=== PATIENT | female | born 1985 | race Caucasian/White ===

== ENCOUNTER → 2018-07-31 | Outpatient (CLI) | payer BC, SELFPAY ==
[2018-07-18 13:37] VITALS: BMI 23.3
[2018-07-31 12:56] LABS: Follicle Stimulating Hormone 5.6 mIU/mL; Thyroid Stim Hormone (TSH) 0.93 uIU/mL (0.358-3.74)
== END | disposition home or self-care (01) ==
PROVIDERS: Family Provider Family Medicine; PCP Family Medicine; Referring Provider Obstetrics & Gynecology; Visit Provider Obstetrics & Gynecology
DX: N97.9 Female infertility, unspecified (principal); N93.9 Abnormal uterine and vaginal bleeding, unspecified; N96 Recurrent pregnancy loss
CPT/HCPCS: 36415; 83001; 84443

== ENCOUNTER → 2024-08-09 | Outpatient (CLI) | payer BC, SELFPAY ==
--- NOTE | 2024-08-09 07:49 | MRI_ITS ---
PROCEDURE: SPINE LUMBAR (ROUTINE) 08/09/2024 REASON FOR EXAM: PAIN, PARS DEFECT WITH SPONDYLOLISTHESIS TECHNIQUE: Multiplanar and multisequence images were obtained without IV contrast administration. COMPARISON: None FINDINGS: Vertebral body heights are within normal limits. Negative for acute fracture, contusion or marrow replacement. Bilateral pars defects at L5 width grade 2 anterolisthesis. Conus medullaris is within normal limits and terminates at T12. No paraspinal mass. L1-2: No focal disc abnormality, spinal stenosis or foraminal narrowing. L2-3: No focal disc abnormality, spinal stenosis or foraminal narrowing. L3-4: No focal disc abnormality, spinal stenosis or foraminal narrowing. L4-5: No focal disc abnormality, spinal stenosis or foraminal narrowing. Mild bilateral facet arthrosis. L5-S1: Grade 2 anterolisthesis with uncovering of the posterior disc. Mild bilateral facet arthrosis. No significant spinal stenosis. Mild left and moderate/severe right foraminal narrowing. MRI/Spine Lumbar (Routine) IMPRESSION: 1. No significant spinal stenosis. 2. Acquired moderate/severe right foraminal narrowing at L5-S1. 3. Bilateral pars defects at L5 with grade 2 anterolisthesis. Reading Location: [facility]
--- OUTSIDE RECORDS SUMMARY | 2024-08-09 07:50 | XMS RPT_ITS | CCD ---
Author Organization [facility] Care Team Providers Care Electrical Manager Name Role Phone July Nix Unavailable Unavailable Tera Lira Unavailable Unavailable Tourlas, Moy Unavailable Unavailabl e Ralph Quirozah Donald Unavailable Unavailable Emily Marcum Unavailable Unavailable Unavailable Linda, Franny L Unavailable Emily Marcum Unavailable Tourlas, Moy Unavailable [place], Franny L Unavailable Unavailable Ezio Macdonald Unavailable Unavailable July Nix Unavailable Jacob Titus Unavailable Unavailable Jacy Boone Unavailable Unavailable [place], Mrs. Franny Centeno Attending Unavailabl e Trixie, Ms. Emily Mullins Primary Care Unavailabl e [place], Mrs. Franny Mendezn Referring Unavailabl e [place], Mrs. Franny Mendezn Referring Unavailabl e Linda, Mrs. Franny Mendezn Primary Care Unavailabl e Linda, Mrs. Franny Centeno Attending Unavailabl e BOONE, MD JACY HERBERT Referring Unava ilable BOONEMD JACY Beth Attending Unava ilable [place], Mrs. Franny Mendezn Primary Care Unavailabl e Linda, Mrs. Franny Mendezn Primary Care Unavailabl e Ray, Dr. July Gresham Attending Unavailabl e Ray, Dr. July Gresham Referring Unavailabl e Linda, Mia Franny Taryn Primary Care Unavailabl e [place], Dr. July Gresham Attending Unavailabl e [place], Dr. July Gresham Referring Unavailabl e Linda, Mia Frannychelsea Centeno Primary Care Unavailabl e [place], Dr. July Gresham Referring Unavailabl e [place], Dr. July Gresham Attending Unavailabl e Linda, Mrs. Frank Taryn Primary Care Unavailabl e Ray, Dr. July Gresham Referring Unavailabl e Ray, Dr. July Gresham Attending Unavailabl e Linda, Mrs. Frank Taryn Primary Care Unavailabl e Ray, Dr. July Gresham Referring Unavailabl e [place], Dr. July Gresham Attending Unavailabl e Linda, Mrs. Frank Taryn Primary Care Unavailabl e [place], Dr. July Gresham Attending Unavailabl e Linda, Mrs. Frank Taryn Attending Unavailabl e Linda, Mrs. Franny Mendezn Referring Unavailabl e Linda, Mrs. Frank Taryn Primary Care Unavailabl e Linda, Mrs. Franny Mendezn Referring Unavailabl e Linda, Mrs. Franny Mendezn Attending Unavailabl e Linda, Mrs. Frank Taryn Primary Care Unavailabl e [place], Dr. July Gresham Attending Unavailabl e [place], Dr. July Gresham Referring Unavailabl e [place], Mrs. Frank Taryn Primary Care Unavailabl e [place], Dr. July Gresham Admitting Unavailabl e [place], Dr. July Gresham Attending Unavailabl e [place], Dr. July Gresham Referring Unavailabl e [place], Mrs. Franny Mendezn Primary Care Unavailabl e [place], Mrs. Franny Centeno Primary Care Unavailabl e Macdonald, Dr. Ezio Kraus Attending Unavaila ble Kamenik, Ms. Jacob Gomez Attending Unavai lable Linda, Mrs. Franny Mendezn Primary Care Unavailabl e Kamenik, Ms. Jacob Gomez Attending Unavai lable [place], Mrs. Franny Centeno Primary Care Unavailabl e [place], Mrs. Franny Centeno Primary Care Unavailabl e Boone, Dr. Jacy Herbert Attending Unav ailable Boone, Dr. Jacy Herbert Referring Unav ailable Carbon, Dr. July Gresham Attending Unavailabl e [place], Mrs. Franny Mendezn Primary Care Unavailabl e [place] PREPAROLE COUNSELING AIDERayna BROWN Unavailable Unav ailable Linda Franny JAIN Primary Care Provider [phone] STENTDavina, ROBI Primary Care Unavailable STENTZ, ROBI Primary Care Unavailable [place] PREPAROLE COUNSELING AIDE-HOME CARE LIAISON, Franny L Primary Care Provider [place] PREPAROLE COUNSELING AIDE-HOME CARE LIAISON, Franny L Unavailable Stentz Robi BELCHER Primary Care Provider Juan Wynn MD Primary Care Provider [phone] Linda PREPAROLE COUNSELING AIDE-SKINNY, Franny Duran Unavailable [phone] Juan Wynn MD Primary Care Provider SARAH, JUAN Ramirez Attending Unavailable LINDA, FRANNY L Primary Care Unavailable STENTZ, ROBI Attending Unavailable STENTZ, ROBI Primary Care Unavailable STENTZ, ROBI Primary Care Unavailable NAHOMY HERNANDEZ S Attending Unavailable YEATER, JUAN M Attending Unavailable STENTZ, ROBI Primary Care Unavailable STENCELBOBBY Attending Unavailable YEATER, JUAN M Primary Care Unavailable YEATER, JUAN M Attending Unavailable STENCEL, BOBBY Bennett Referring Unavailable YEATER, JUAN M Primary Care Unavailable YEATER, JUAN M Primary Care Unavailable DAMASOVIRIDIANA Ghosh Attending Unavailable YeJuan kirk MD Unavailable YEATER, JUAN M Primary Care Unavailable LEMSIMONE TODD Attending Unavailable YEATER, JUAN M Primary Care Unavailable BRAXTONSHAHNAZ E Attending Unavailable YEATER, JUAN M Primary Care Unavailable YEATER, JUAN M Primary Care Unavailable BRAXTONSHAHNAZ E Attending Unavailable YEATER, JUAN M Primary Care Unavailable YEATER, JUAN M Primary Care Unavailable STENCEL, BOBBY Bennett Referring Unavailable YEATER, JUAN M Primary Care Unavailable STENCEL, BOBBY Bennett Referring Unavailable YEATER, JUAN M Primary Care Unavailable STENCEL, BOBBY Bennett Referring Unavailable YEATER, JUAN M Primary Care Unavailable Celine Rao Attending Unavailable Tourlas, Carl Primary Care Unavailable Tourlas, Carl Referring Unavailable Tourlas, Carl Primary Care Unavailable Aidee, Saluda Attending Unavailable Maira, Celine Attending Unavailable Maira, Celine Referring Unavailable Tourlas, Carl Primary Care Unavailable Allergies Allergy Classification Reported Allergen(s) Allergy Type Date of Onset Reaction(s) Facility (1 source) Wheat preparation Drug Allergy 5 [facility] (1 source) Environmental Allergies: Uncoded; Translations: [Environmental Allergies: Uncoded] Propensity to adverse reactions (disorder) [facility] Rep[facility] Medications Current Medications Medication Drug Class(es) Dates Sig (Normalized) Sig (Original) ashjodidha (1 source) take 1 tablet by mouth once daily ashwagandha ; 1 tab(s) orally once a day Quantity: 0 Refills: 0 Ordered: 02-Sep-2021 [place], [place] Generic Substitution Allowed aspirin 81 mg delayed release oral tablet (2 sources) Platelet Aggregation Inhibitor, Nonsteroidal Anti-inflammatory Drug take 1 tablet by mouth once daily at bedtime Aspirin Enteric Coated 81 mg oral delayed release tablet ; 1 tab(s) orally once a day (at bedtime) Quantity: 0 Refills: 0 Ordered: 10-Dec-2019 Maya Rowell Status: Discontinued Generic Substitution Allowed cetirizine hydrochloride 10 mg oral tablet (2 sources) Histamine-1 Receptor Antagonist take 1 tablet by mouth once daily at bedtime cetirizine 10 mg oral tablet ; 1 tab(s) orally once a day (at bedtime) Quantity: 0 Refills: 0 Ordered: 10-Dec-2019 Maya Rowell Status: Discontinued Generic Substitution Allowed citalopram 20 mg oral tablet (20 sources) Serotonin Reuptake Inhibitor Start: 11-29-2023 End: 11-23-2024 take 1 tablet by mouth once daily citalopram (CeleXA) 20 mg tablet Indications: PMDD (premenstrual dysphoric disorder) Take 1 tablet (20 mg) by mouth once daily. Take in conjunction with 10mg tablet for a total of 30mg daily. 90 tablet 3 11/29/2023 11/23/2024 Active Start: 11-29-2023 End: 11-28-2024 take 1 tablet by mouth once daily citalopram (CeleXA) 10 mg tablet Indications: PMDD (premenstrual dysphoric disorder) Take 1 tablet (10 mg) by mouth once daily. Take in conjunction with 20mg tablet for a total of 30mg daily. 90 tablet 3 11/29/2023 11/28/2024 Active Start: 10-18-2023 End: 12-31-2023 take 0.5 tablet by mouth once daily, then take 1 tablet by mouth once daily citalopram (CeleXA) 20 mg tablet Indications: PMDD (premenstrual dysphoric disorder) Take 0.5 tablets (10 mg) by mouth once daily for 14 days, THEN 1 tablet (20 mg) once daily. 67 tablet 10/18/2023 11/29/2023 Discontinued cyclobenzaprine hydrochloride 10 mg oral tablet (4 sources) Muscle Relaxant Start: 06-14-2024 End: 06-21-2024 take 1 tablet by mouth every eight hours for pain cyclobenzaprine (Flexeril) 10 mg tablet Indications: Muscle strain of gluteal region, right, initial encounter Take 1 tablet (10 mg) by mouth every 8 hours if needed (for muscle spasms/pain). *caution - can cause drowsiness* 12 tablet 06/21/2024 Active hydrocortisone 10 mg/ml / neomycin 3.5 mg/ml / polymyxin b 17974 unt/ml otic suspension (1 source) Aminoglycoside Antibacterial, Polymyxin-class Antibacterial, Corticosteroid Start: 11-22-2021 End: 12-01-2021 neomycin/polymyxin B/hydrocortisone 0.35%-10,000 units/mL-1% otic suspension ; 4 drop(s) in right ear 2 times a day x 7 days Quantity: 5 Refills: 0 Ordered: 22-Nov-2021 Jacob Titus Start: 22-Nov-2021 End: 01-Dec-2021 Generic Substitution Allowed Comments: For the ear.Shake well before use. Comment on above: For the ear.Shake we ll before use. multivitamin tablet (14 sources) multivitamin tab let Take by mouth. Active multivitamin tab let Take by mouth. 0 Active naproxen 500 mg oral tablet (4 sources) Nonsteroidal Anti-inflammatory Drug Start: 06-14-2024 End: 06-21-2024 take 1 tablet by mouth every twelve hours naproxen (Naprosyn) 500 mg tablet Indications: Muscle strain of gluteal region, right, initial encounter Take 1 tablet (500 mg) by mouth every 12 hours if needed (pain/inflammation). Take with a meal. 28 tablet 06/21/2024 Active Multivitamins oral tablet (obsolete) (2 sources) take 1 tablet by mouth once daily Multivitamins oral tablet (obsolete) ; 1 tab(s) orally once a day Quantity: 0 Refills: 0 Ordered: 09-Sep-2021 Viridiana Pitt Status: Other Generic Substitution Allowed take 1 tablet by melody th once daily at bedtime Multivitamins oral tablet (obsolete) ; 1 tab(s) orally once a day (at bedtime) Quantity: 0 Refills: 0 Ordered: 10-Dec-2019 Sorin Maya Generic Substitution Allowed valACYclovir 500 mg oral tablet (3 sources) Herpesvirus Nucleoside Analog DNA Polymerase Inhibitor, Herpes Simplex Virus Nucleoside Analog DNA Polymerase Inhibitor, Herpes Zoster Virus Nucleoside Analog DNA Polymerase Inhibitor Start: 01-31-2020 take 1 tablet by mouth twice daily valACYclovir 500 mg oral tablet ; 1 tab(s) orally 2 times a day Quantity: 0 Refills: 0 Ordered: 06-Feb-2020 Maya Swift Start: 31-Jan-2020 Status: Discontinued Generic Substitution Allowed Start: 10-10-2019 take 1 tablet by melody th once daily valACYclovir HCl - 1 GM Oral Tablet TAKE 1 TABLET DAILY. Quantity: 10 Refills: 2 Tera Lira MD Start : 10-Oct-2019 Active Zinc Sulfate (1 source) take 1 tablet by melody th once daily Zinc ; 1 tab(s) orally once a day Quantity: 0 Refills: 0 Ordered: 02-Sep-2021 [place] Generic Substitution Allowed Completed/Discontinued Medications Medication Drug Class(es) Dates Sig (Normalized) Sig (Original) amoxicillin 875 mg oral tablet (1 source) Penicillin-class Antibacterial Start: 02-22-2021 take 1 tablet by mouth once daily Amoxicillin 875 MG Oral Tablet TAKE 1 TABLET EVERY 12 HOURS DAILY. Quantity: 20 Refills: 0 Ordered: 22-Feb-2021 Stacy Rose PA-C Start : 22-Feb-2021 Active Apple Cider Vinegar (17 sources) take 1 tablet by mouth once daily apple cider vinegar ; 1 tab(s) orally once a day Quantity: 0 Refills: 0 Ordered: 02-Sep-2021 [place] Generic Substitution Allowed Apple Cider Vine gar CAPS Quantity: 0 Refills: 0 Ordered: 13-Jul-2021 DO Active Ashwagandha 500 MG Oral Caps ule (16 sources) Ashwagandha 500 MG Oral Capsule Quantity: 0 Refills: 0 Ordered: 13-Jul-2021 DO Active Bacillus coagulans / Inulin (6 sources) End: 03-19-2024 BACILLUS COAGULANS-INULIN OR AL Take by mouth. 03/19/2024 Discontinued (Med List Cleanup) BACILLUS COAGULA NS-INULIN ORAL Take by mouth. Active BACILLUS COAGULA NS-INULIN ORAL Take by mouth. 0 Active cephalexin 500 mg oral capsule (2 sources) Cephalosporin Antibacterial Start: 08-27-2021 End: 09-05-2021 take 1 capsule by mouth three times daily cephalexin 500 mg oral capsule ; 1 cap(s) orally 3 times a day Quantity: 30 Refills: 0 Ordered: 27-Aug-2021 Ezio Macdonald Start: 27-Aug-2021 End: 05-Sep-2021 Status: Other Generic Substitution Allowed Comments: Finish all this medication unless otherwise directed by prescriber. Comment on above: Finish all this medi cation unless otherwise directed by prescriber. Collagen Ultra Oral Capsule (9 sources) Start: 01-15-2021 End: 06-28-2021 Collagen Ultra Oral Capsule Quantity: 0 Refills: 0 Ordered: 15-Jan-2021 Rayna Siddiqi Start : 15-Jan-2021 End : 28-Jun-2021 Complete Start: 01-15-2021 Collagen Ultra Oral Capsule Quantity: 0 Refills: 0 Ordered: 15-Jan-2021 Rayna Siddiqi Start : 15-Jan-2021 Active famotidine 20 mg oral tablet (13 sources) Histamine-2 Receptor Antagonist Start: 10-15-2019 take 1 tablet by mouth at bedtime Famotidine 20 MG Oral Tablet TAKE 1 TABLET AT BEDTIME. Quantity: 30 Refills: 6 July Nix DO Start : 15-Oct-2019 Active End: 06-28-2021 Pepcid TABS Quantity: 0 Refi lls: 0 Ordered: 28-Jun-2021 DO End : 28-Jun-2021 Complete Pepcid TABS César tity: 0 Refills: 0 Ordered: 19-Nov-2020 DO Active fluticasone propionate 0.05 mg/actuat metered dose nasal spray (10 sources) Corticosteroid Start: 12-20-2021 Fluticasone Pr opionate 50 MCG/ACT Nasal Suspension INSTILL 1 SQUIRT Twice daily Quantity: 1 Refills: 5 Ordered: 20-Dec-2021 Franny Escamilla Start : 20-Dec-2021 Active Start: 02-22-2021 take 1 spray(s) nasa l route once daily Fluticasone Propionate 50 MCG/ACT Nasal Suspension USE 1 SPRAY IN EACH NOSTRIL ONCE DAILY. Quantity: 1 Refills: 0 Ordered: 22-Feb-2021 Stacy Rose PA-C Start : 22-Feb-2021 Active ibuprofen 800 mg oral tablet (4 sources) Nonsteroidal Anti-inflammatory Drug Start: 08-27-2021 End: 09-05-2021 take 1 tablet by mouth twice daily at mealtime IBU 800 mg oral tablet ; 1 tab(s) orally 2 times a day Quantity: 20 Refills: 0 Ordered: 27-Aug-2021 Ezio Macdonald Start: 27-Aug-2021 End: 05-Sep-2021 Status: Other Generic Substitution Allowed Comments: Do not take this drug if you are .It is very important that you take or use this exactly as directed. Do not skip doses or discontinue unless directed by your doctor.May cause drowsiness or dizziness.Obtain medical advice before taking any non-prescription drugs as some may affect the action of this medication.Take with food or milk. Start: 02-07-2020 take 1 tablet by melody th every six hours ibuprofen 600 mg oral tablet ; 1 tab(s) orally every 6 hours Quantity: 40 Refills: 0 Ordered: 07-Feb-2020 RayJuly avery Start: 07-Feb-2020 Status: Other Generic Substitution Allowed Comment on above: Do not take this david g if you are .It is very important that you take or use this exactly as directed. Do not skip doses or discontinue unless directed by your doctor.May cause drowsiness or dizziness.Obtain medical advice before taking any non-prescription drugs as some may affect the action of this medication.Take with food or milk. Iron 18 MG TBCR (9 sources) End: 06-28-2021 Iron 18 MG TBCR Quantity: 0 Refills: 0 Ordered: 28-Jun-2021 DO End : 28-Jun-2021 Complete Iron 18 MG TBCR Quantity: 0 Refills: 0 Ordered: 15-Jan-2021 DO Active 1.5/30 1.5-30 MG-MCG Oral Tablet (5 sources) Start: 04-14-2021 End: 06-28-2021 take 1 tablet by mouth once daily, then take 2 tablets by mouth every week 1.5-30 MG-MCG Oral Tablet TAKE 1 TABLET Daily Skip every other placebo week. Quantity: 3 Refills: 3 Ordered: 07-May-2021 July Nix DO Start : 14-Apr-2021 End : 28-Jun-2021 Complete Start: 04-14-2021 take 1 tablet by melody th once daily, then take 2 tablets by mouth every week 1.5-30 MG-MCG Oral Tablet TAKE 1 TABLET Daily Skip every other placebo week. Quantity: 3 Refills: 3 Ordered: 07-May-2021 July Nix DO Start : 14-Apr-2021 Active Start: 04-14-2021 take 1 tablet by melody th once daily, then take 2 tablets by mouth every week 1.5-30 MG-MCG Oral Tablet TAKE 1 TABLET Daily Skip every other placebo week. Quantity: 2 Refills: 6 Ordered: 14-Apr-2021 July Nix DO Start : 14-Apr-2021 Active Loratadine (4 sources) Claritin TABS Qu antity: 0 Refills: 0 Ordered: 19-Nov-2020 DO Active medroxyPROGESTERone acetate 5 mg oral tablet (2 sources) Progestin Star t: 08-04 take 1 tablet by mouth once daily medroxyPROGESTERone Acetate 5 MG Oral Tablet Take 1 tablet daily Quantity: 14 Refills: 0 Ordered: 17-Aug-2021 July Nix DO Start : 17-Aug-2021 Active methylPREDNISolone 125 mg injection (1 source) Corticosteroid Star t: 06-04 25 End: 06-04 inject 125 mg by intramuscular injection once 125 mg, intramuscular, Once, On Mon06/14/24 at 1620, For 1 dose Multi-Vitamins TABS (17 sources) Multi-Vitamins T ABS Quantity: 0 Refills: 0 Ordered: 28-Jun-2021 DO Active nitrofurantoin, macrocrystals 100 mg oral capsule (2 sources) Nitrofuran Antibacterial Star t: 11-04 End: 01-04 21 take 1 capsule by mouth once Nitrofurantoin Macrocrystal 100 MG Oral Capsule TAKE 1 CAPSULE Every twelve hours Quantity: 10 Refills: 0 Ordered: 20-Nov-2020 Rayna Siddiqi Start : 20-Nov-2020 End : 15-Jan-2021 Complete ondansetron 4 mg disintegrating oral tablet (5 sources) Serotonin-3 Receptor Antagonist Star t: 01-1 0-20 23 take 1 tablet by mouth twice daily Ondansetron 4 MG Oral Tablet Disintegrating Take 1 tablet twice daily Quantity: 6 Refills: 0 Ordered: 15-Mar-2022 Linda RODRIGUEZNFranny CORTES Start : 15-Mar-2022 Active Start: 08-21-2019 take 1 tablet by melody th every six hours Ondansetron HCl - 4 MG Oral Tablet TAKE 1 TABLET Every 6 hours PRN nausea Quantity: 20 Refills: 3 July Nix DO Start : 21-Aug-2019 Active 2 ml orphenadrine citrate 30 mg/ml injection (1 source) Muscle Relaxant Start: 06-14-2024 End: 06-14-2024 inject 60 mg by intramuscular injection once 60 mg, intramuscular, Once, On Mon06/14/24 at 1605, For 1 dose oxyCODONE hydrochloride 5 mg oral tablet (2 sources) Opioid Agonist Start: 02-07-2020 End: 02-08-2020 take 1 tablet by mouth every six hours as needed oxyCODONE 5 mg oral tablet ; 1 tab(s) orally every 6 hours, As Needed -Pain - Mod (4-6) cramping or back pain Quantity: 5 Refills: 0 Ordered: 07-Feb-2020 July Nix Start: 07-Feb-2020 End: 08-Feb-2020 Status: Other Generic Substitution Allowed 27-1 MG Oral Tablet (10 sources) Start: 01-01-2020 End: 06-28-2021 27-1 MG Oral Tablet Quantity: 0 Refills: 0 Ordered: 01-Jan-2020 DO Start : 01-Jan-2020 End : 28-Jun-2021 Complete Start: 01-01-2020 27-1 MG Oral Tablet Quantity: 0 Refills: 0 Ordered: 01-Jan-2020 DO Start : 01-Jan-2020 Active Probiotic CAPS (20 sources) Probiotic CAPS Q uantity: 0 Refills: 0 Ordered: 13-Jul-2021 DO Active Probiotic CAPS Q uantity: 0 Refills: 0 Ordered: 19-Nov-2020 DO Active promethazine hydrochloride 25 mg oral tablet (1 source) Phenothiazine Start: 06-28-2019 take 1 tablet by mouth every six hours Promethazine HCl - 25 MG Oral Tablet TAKE 1 TABLET EVERY 6 HOURS NEEDED FOR NAUSEA. Quantity: 20 Refills: 3 CarbonJuly avery DO Start : 28-Jun-2019 Active sertraline 25 mg oral tablet (20 sources) Serotonin Reuptake Inhibitor Start: 12-20-2021 End: 03-15-2022 take 1 tablet by mouth once daily Sertraline HCl - 25 MG Oral Tablet Take 1 tablet daily Quantity: 30 Refills: 2 Ordered: 20-Dec-2021 Franny Escamilla Start : 20-Dec-2021 End : 15-Mar-2022 Complete Start: 11-19-2020 End: 11-02-2023 take 1 tablet by mouth once daily sertraline (Zoloft) 50 mg tablet Take 1 tablet (50 mg) by mouth once daily. 11/19/2020 11/02/2023 Discontinued (Med List Cleanup) Start: 03-24-2020 End: 01-15-2021 take 1 tablet by mouth once daily Sertraline HCl - 25 MG Oral Tablet Take 1 tablet daily Quantity: 90 Refills: 3 Ordered: 19-Nov-2020 Emily Wagoner Start : 19-Nov-2020 Active Stress ReLeaf CAPS (17 sources) Stress ReLeaf CA PS Quantity: 0 Refills: 0 Ordered: 28-Jun-2021 DO Active sulfamethoxazole 800 mg / trimethoprim 160 mg oral tablet (2 sources) Dihydrofolate Reductase Inhibitor Antibacterial, Sulfonamide Antimicrobial Start: 08-28-19 End: 09-06-19 take 1 tablet by mouth twice daily Bactrim DS 800 mg-160 mg oral tablet ; 1 tab(s) orally 2 times a day Quantity: 20 Refills: 0 Ordered: 27-Aug-2021 Jacob Titus Start: 27-Aug-2021 End: 05-Sep-2021 Status: Other Generic Substitution Allowed Comments: Avoid prolonged or excessive exposure to direct and/or artificial sunlight while taking this medication.Finish all this medication unless otherwise directed by prescriber.Medicati on should be taken with plenty of water. Comment on above: Avoid prolonged or e xcessive exposure to direct and/or artificial sunlight while taking this medication.Finish all this medication unless otherwise directed by prescriber.Medication should be taken with plenty of water. vitamin b12 2.5 mg oral tablet (16 sources) Vitamin B12 B-12 2500 MCG Or al Tablet Quantity: 0 Refills: 0 Ordered: 13-Jul-2021 DO Active vitamin b6 100 mg oral tablet (16 sources) B-6 100 MG Oral Tablet Quantity: 0 Refills: 0 Ordered: 13-Jul-2021 DO Active Vitamin D TABS (9 sources) End: 06-29-19 22 Vitamin D TABS Quantity: 0 Refills: 0 Ordered: 28-Jun-2021 DO End : 28-Jun-2021 Complete Vitamin D TABS Q uantity: 0 Refills: 0 Ordered: 15-Jan-2021 DO Active Zinc (16 sources) Zinc 50 MG CAPS Quantity: 0 Refills: 0 Ordered: 13-Jul-2021 DO Active Zinc Acetate (6 sources) End: 03-19-2024 take 1 tablet by mouth once daily ZINC ACETATE ORAL Take 1 tablet by mouth once daily. 03/19/2024 Discontinued (Med List Cleanup) take 1 tablet by mouth once tutu y ZINC ACETATE ORAL Take 1 tablet by mouth once daily. Active take 1 tablet by mouth once tutu y ZINC ACETATE ORAL Take 1 tablet by mouth once daily. 0 Active Problems Active Problems Problem Classification Problem Date Documented Da te Episodic/Chronic Administrative/social admission (1 source) Multigravida; Translations: [Multigravida in second trimester] Episodic Anxiety disorders (1 source) Anxiety disorder, unspecified; Translations: [Anxiety disorder, unspecified] Onset: 2 Chronic Esophageal disorders (20 sources) Gastroesophageal reflux disease; Translations: [Esophageal reflux] Onset: 3 09-12-2022 Chronic Menstrual disorders (3 sources) Irregular periods; Translations: [Irregular menstruation, unspecified] Onset: 5 04-02-2024 Chronic Mood disorders (20 sources) Moderate major depression, single episode; Translations: [Major depressive affective disorder, single episode, moderate] Onset: 3 09-13-2022 Chronic Nausea and vomiting (5 sources) Nausea and vomiting; Translations: [Nausea] Episodic Nutritional deficiencies (10 sources) Vitamin D deficiency; Translations: [Unspecified vitamin D deficiency] Onset: 4 09-12-2022 Chronic Other acquired deformities (3 sources) Spondylolysis; Translations: [Spondylolisthesis, site unspecified] 06-14-2024 Episodic Other acquired deformities (1 source) Spondylolisthesis; Translations: [Spondylolisthesis, lumbosacral region] 06-21-2024 Episodic Other acquired deformities (3 sources) Spondylolisthesis, site unspecified; Translations: [Spondylolisthesis, site unspecified] Onset: 5 Episodic Other acquired deformities (2 sources) Spondylolisthesis, lumbosacral region; Translations: [Spondylolisthesis, lumbosacral region] Onset: 5 Episodic Other complications of (1 source) Uterine scar from previous surgery in , childbirth and the puerperium; Translations: [Encounter for maternal care for low transverse scar from previous delivery] Episodic Other connective tissue disease (2 sources) Myalgia, other site; Translations: [Myalgia, other site] Onset: 5 Episodic Other diseases of bladder and urethra (20 sources) Overactive bladder; Translations: [Hypertonicity of bladder] Onset: 3 09-12-2022 Chronic Other ear and sense organ disorders (1 source) Acute infective otitis externa; Translations: [Infective otitis externa, unspecified] 11-22-2021 Chronic Other endocrine disorders (1 source) Menarche; Translations: [History of Menarche] Chronic Other female genital disorders (12 sources) Abnormal uterine bleeding; Translations: [Unspecified disorders of menstruation and other abnormal bleeding from female genital tract] Chronic Other female genital disorders (6 sources) Abnormal uterine and vaginal bleeding, unspecified; Translations: [Abnormal uterine and vaginal bleeding, unspecified] Onset: 2 Chronic Other gastrointestinal disorders (4 sources) Diarrhea; Translations: [Diarrhea] Episodic Other inflammatory condition of skin (1 source) Pityriasis rosea; Translations: [Pityriasis rosea] 05-04-2024 Chronic Other nervous system disorders (1 source) Entrapment of left ulnar nerve; Translations: [Lesion of ulnar nerve, left upper limb] 03-19-2024 Chronic Other nutritional; endocrine; and metabolic disorders (12 sources) Overweight in adulthood with body mass index of 25 or more but less than 30; Translations: [Body Mass Index 27.0-27.9, adult] Episodic Other nutritional; endocrine; and metabolic disorders (9 sources) History of clinical finding in subject; Translations: [Personal history of other endocrine, metabolic, and immunity disorders] Resolved: 3 11-29-2023 Episodic Other and delivery including normal (20 sources) care status; Translations: [Routine follow-up] Episodic Other upper respiratory disease (20 sources) Allergic rhinitis; Translations: [Allergic rhinitis, cause unspecified] Onset: 3 09-12-2022 Chronic Other upper respiratory infections (7 sources) Acute maxillary sinusitis; Translations: [Acute maxillary sinusitis] Episodic Residual codes; unclassified (1 source) Gestation period, 23 weeks; Translations: [23 weeks gestation of ] Episodic Residual codes; unclassified (20 sources) H/O: ; Translations: [Personal history of other genital system and obstetric disorders] Episodic Comment on above: 09/2014-SPONTANEOUS PACEPBNL47/09/2016-39 WEEKS, , MALE, #8 5oz; Spondylosis; intervertebral disc disorders; other back problems (9 sources) Acute back pain with sciatica; Translations: [Lumbago with sciatica, right side] Onset: 5 06-14-2024 Episodic Sprains and strains (4 sources) Strain of muscle of lower limb; Translations: [Strain of muscle, fascia and tendon of right hip, initial encounter] Onset: 5 06-14-2024 Episodic Unclassified (2 sources) INFECTION IN SECOND TOE ON RIGHT FOOT 08-27-2021 Comment on above: INFECTION IN SECOND TOE ON RIGHT FOOT Unclassified (2 sources) 6 MONTH FU 06-28-2021 Comment on above: 6 MONTH FU Unclassified (1 source) PO 08-17-2021 Comment on above: PO Unclassified (1 source) HYSTEROSCOPY DILATION AND CURETTAGE, ENDOMETRIAL ABLATION 08-17-2021 Comment on above: HYSTEROSCOPY DILATIO N AND CURETTAGE, ENDOMETRIAL ABLATION Unclassified (1 source) Thrombophlebitis leg superficial 08-27-2021 Unclassified (2 sources) EAR PAIN 11-22-2021 Comment on above: EAR PAIN Unclassified (1 source) Patient encounter procedure 11-11-2021 Comment on above: YEARLY Unclassified (1 source) Other infective acute otitis externa of right ear 11-22-2021 Unclassified (6 sources) Mastodynia of left breast 03-19-2024 Unclassified (2 sources) Low back pain, unspecified; Translations: [Low back pain, unspecified] Onset: 5 Past or Other Problems Problem Classification Problem Date Documented Da te Episodic/Chronic Cardiac dysrhythmias (20 sources) Palpitations; Translations: [Palpitations] Onset: 3 09-12-2022 Episodic Diabetes mellitus without complication (20 sources) Hyperglycemia; Translations: [Other abnormal glucose] Onset: 3 09-12-2022 Episodic E Codes: Struck by; against (1 source) Striking against or struck by other objects, initial encounter; Translations: [Striking against or struck by other objects, init encntr] Onset: 2 Episodic Genitourinary symptoms and ill-defined conditions (6 sources) Urinary symptoms ; Translations: [Other symptoms involving urinary system] Onset: 4 Episodic Immunizations and screening for infectious disease (20 sources) Patient encounter status; Translations: [Screening examination for venereal disease] Resolved: 3 11-02-2023 Episodic Malaise and fatigue (20 sources) Fatigue; Translations: [Other malaise and fatigue] Onset: 3 09-12-2022 Episodic Mood disorders (15 sources) Mood disorders; Translations: [Depression, unspecified] Onset: 2 04-16-2022 Nonmalignant breast conditions (16 sources) Pain of breast; Translations: [Mastodynia] Onset: 3 Episodic Nutritional deficiencies (5 sources) Iron deficiency; Translations: [Serum iron low] Onset: 4 Episodic Other complications of (20 sources) Mild depression; Translations: [Mental disorders of mother, condition or complication] Onset: 3 Resolved: 3 09-12-2022 Episodic Other ear and sense organ disorders (1 source) Other infective otitis externa, right ear; Translations: [Other infective otitis externa, right ear] Onset: 2 Episodic Other ear and sense organ disorders (1 source) Otalgia, right ear; Translations: [Otalgia, right ear] Onset: 2 Episodic Other female genital disorders (4 sources) H/O: abnormal uterine bleeding; Translations: [Personal history of other genital system and obstetric disorders] Resolved: 3 Episodic Other inflammatory condition of skin (1 source) Erythematous condition, unspecified; Translations: [Erythematous condition, unspecified] Onset: 2 Episodic Other nutritional; endocrine; and metabolic disorders (20 sources) Body mass index 25-29 - overweight; Translations: [Body Mass Index 27.0-27.9, adult] Onset: 3 09-12-2022 Episodic Other screening for suspected conditions (not mental disorders or infectious disease) (20 sources) Cancer cervix screening status; Translations: [Screening for malignant neoplasms of cervix] Onset: 4 Resolved: 3 Episodic Ovarian cyst (1 source) Corpus luteum cyst of left ovary; Translations: [Corpus luteum cyst of left ovary] Onset: 2 Episodic Phlebitis; thrombophlebitis and thromboembolism (2 sources) Thrombophlebitis of superficial veins of lower extremity; Translations: [Phlebitis and thrombophlebitis of superficial vessels of lower extremities] Onset: 2 08-27-2021 Episodic Residual codes; unclassified (4 sources) History of palpitations; Translations: [Personal history of other diseases of circulatory system] Resolved: 3 Episodic Skin and subcutaneous tissue infections (1 source) Cellulitis of right toe; Translations: [Cellulitis of right toe] Onset: 2 Episodic Superficial injury; contusion (2 sources) Abrasion, right lesser toe(s), initial encounter; Translations: [Abrasion, right lesser toe(s), initial encounter] Onset: 2 Episodic Unclassified (1 source) Patient encounter status; Translations: [Screen for STD (sexually transmitted disease)] Unclassified (12 sources) Onset: 4 11-02-2023 Unclassified (1 source) Low back pain, unspecified; Translations: [Low back pain, unspecified] Onset: 5 Viral infection (20 sources) Herpes simplex type 2 infection; Translations: [Herpes simplex without mention of complication] Onset: 3 Resolved: 3 09-12-2022 Episodic NEGATED: Highlighted row has not occurred!Residual codes; unclassified (4 sources) Disease Episodic Results Test Name Value Interpretation Reference Range Facility TESTOSTERONE, FREE (DIALYSIS ) AND TOTAL,MSon 07-22-2024 TESTOSTERONE, FREE 1.3 pg/mL Normal 0.1-6.4 [email or web address] Comment on above: Result Comment: This test was developed and its analytical performance characteristics have been determined by [email or web address] [place], [place]. It has not been cleared or approved by the U.S. Food and Drug Administration. This assay has been validated pursuant to the CLIA regulations and is used for clinical purposes. Performed By: #### 3 [id number] #### [email or web address]/[place] [id number] [facility] [place], [place] Bridge Inspector: Elio Larson M.D.,PhD TESTOSTERONE, TOTAL, MS 14 ng/dL Normal 2-45 [email or web address] Comment on above: Result Comment: For additional information, please refer to http://education.SnapMD/faq/ [email or web address] (This link is being provided for informational/ educational purposes only.) This test was developed and its analytical performance characteristics have been determined by [email or web address] [place], [place]. It has not been cleared or approved by the U.S. Food and Drug Administration. This assay has been validated pursuant to the CLIA regulations and is used for clinical purposes. Performed By: #### 3 6170 #### [email or web address]/[place] [id number] [facility] [place], [place] Bridge Inspector: Elio Larson M.D.,PhD PROGESTERONEon 07-18-2024 PROGESTERONE 5.5 ng/mL Normal [facility] Comment on above: Result Comment: Refe rence Ranges Female Follicular Phase < 1.0 Luteal Phase 2.6-21.5 Post menopausal < 0.5 1st Trimester 4.1-34.0 2nd Trimester 24.0-76.0 3rd Trimester 52.0-302.0 Performed By: #### 7 45 #### [facility] [address] [place] [address], [address] [place] [address] Bridge Inspector: Manuel Lyons MD L/S Spine Bending Flex/[place] 06-27-2024 L/S Spine Bending Flex/Ext [facility] [address] [place] [address] L/S Spine Bending Flex/Ext MR#: [id number] Acct: [id number] Name: BASILIA CORONADO Ignacia Rep #: [id number] : 1985 F 39 From: Trevor Clay PCP: Dr. aCrl Arnold MD Status: DEP AMB Study: L/S Spine Bending Flex/Ext Date of Exam: 06/27 Exam# [id number] Ordering Dr: Celine Rao PROCEDURE: L/S SPINE BENDING FLEX/EXT 06/27/2024 REASON FOR EXAM: PAIN, L5 FX, SLIPPED DISK TECHNIQUE: Standing AP view(s) of the thoracic and lumbar spine. COMPARISON: None FINDINGS: See impression RAD/L/S Spine Bending Flex/Ext IMPRESSION: Bilateral pars defects at L5 with grade 1/2 anterolisthesis. Moderate disc space narrowing at L5- S1. Alignment is otherwise intact. Vertebral body heights are preserved. Mild lower lumbar facet arthrosis. Reading Location: [place] CC: DIMITRI Diaz; Dr. 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: Signed Normal [facility] Orthopedic Visit Reporton Orthopedic Visit Report [facility] [address] [place] [address] [address] [place] [address] OFFICE VISIT Date of Service: 06/27/24 MR#: [id number] Acct: [id number] Name: BASILIA CORONADO Rep #: [id number] : 1985 Provider: DIMITRI Diaz Age/Sex: 39/F Location: [facility] [place].BHARGAVI Status: Signed Intake Vital Signs 08/16/18 10:49 06/27/24 07:59 Height 5 ft 6 in 5 ft 6 in Weight: 159 lb 2 oz BMI 25.7 Intake Visit Reasons: LUMBAR SPINE Chief Complaint: Lumbar spine pain Accompanied by: Self Is patient in pain?: Yes Pain scale (1-10): 2 Allergies Environmental Allergies: Uncoded (seasonal) Allergy (Severe, Verified 06/27/24 08:06) stuffy nose wheat Allergy (Severe, Verified 06/27/24 08:06) Intestinal Medications ???Medication ???Instructions ???Recorded ???Confirmed ???Type calcium carbonate 500 mg PO DAILY 07/18/18 06/27/24 History cholecalciferol (vitamin D3) 25 1,000 unit PO DAILY 07/18/1806/27 History mcg (1,000 unit) capsule docosahexaenoic acid 200 mg mg PO 07/18/18 06/27/24 History capsule ( DHA) mecobalamin (vitamin B12) 1,000 1,000 mcg sublingual DAILY 9 06/27/24 History mcg disintegrating tablet,sublingual omega-3 fatty acids 1,000 mg 1,000 mg PO DAILY 07/18/18 5 History capsule methocarbamol 500 mg tablet 500 mg PO TID PRN pain/spasms #60 06/27/24 06/27/24 Rx tabs Have you fallen in the past year?: Yes PFSH Medical History (Updated 06/27/24 @ 08:48 by DIMITRI Diaz) HSV-2 infection Surgical History S/P wisdom tooth extraction History of tonsillectomy ( 2018) s/p right ankle surgery S/P laparoscopy S/P Family History Grandfather Diabetes Brother Diabetes Mother Hypertension Grandmother Hypertension COPD (chronic obstructive pulmonary disease) Social History Smoking Status: Current every day smoker alcohol intake: current alcohol intake frequency: holidays/special occasions only substance use type: does not use caffeine: Yes what type of physical activity do you participate in: walking frequency: daily seatbelt use: always do you feel safe at home: Yes 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 Part of today???s visit was documented by Tiarra Collins MA, acting as scribe. BASILIA CORONADO is a 39 year old F here today for lumbar spine pain. Pain (location, quality, quantity, radiation):patient is having lower back pain and it's going down in the right hip. The pain is more like a throbbing pain. It feels like a pressure kind of. It almost feels like she is constipated. Onset (date, injury, precipitating event):This started 2-3 weeks ago. She was working out in the morning, the next day she could hardly walk. This started 06/11/2024 after she worked out. She was squatting and doing various other lower extremity exercises. She said she then had right sided pain down the side of the thigh and to the side of the calf. She has current calf tightness but says the lateral thigh pain has gotten better. She also still has right sided low back pain. Moving around for long periods of time increases her pain. Pain with extension. First week was difficult to bend over. Prior Hx (injury, surgery, prior issues with extremity): No PT, no injections, no prior back surgeries. Aggravating factor (position, tasks): Patient states moving around a lot. Laying down makes the pain worse. Treatments (ice/heat , Medication, injections, home exercises): Patient denies any back injections. She has been using ice and it helps. Patient stated that her TENs unit helped. Comorbidities (BMI, DM, Inflammatory conditions, blood thinner, chemotherapy): New diabetes, no heart or lung issues, no blood thinners Ortho Exam General General: Yes no acute distress Neurologic: Yes alert and Yes oriented x3 Spine SPINE TESTING CERVICAL THORACIC LUMBAR Musculoskeletal Strength 0=absent - 5=normal Details: Neurological exam of the lower extremities shows 5x5 power. Normal sensations across all dermatomes. No hyperreflexia. No midline or paraspinal tenderness. Coding Level of Care Code Off vis,new,level 4 Diagnoses Pars defect with spondylolisthesis M43.10 Lumbar radiculopathy M54.16 Assessment and Plan Assessment and Plan (1) Pars defect with spondylolisthesis: Status: Acute (2) Lumbar radiculopathy: Status: Acute Orders: Orders L/S Spine Bend (more content not included)... Normal [facility] No Panel Informationon 06-14 Radiology Study observation (narrative) [facility] Work Phone: XR HIP RIGHT WITH PELVIS WHE N PERFORMED 2 OR 3 VIEWSon 06-14-2024 XR HIP RIGHT WITH PELVIS WHEN PERFORMED 2 OR 3 VIEWS Interpreted By: Rock Yoon, STUDY: XR HIP RIGHT WITH PELVIS WHEN PERFORMED 2 OR 3 VIEWS INDICATION: Signs/Symptoms:right lower back pain. COMPARISON: None ACCESSION NUMBER(S): [id number] ORDERING CLINICIAN: BASILIA GAN FINDINGS: No osseous, articular, or soft tissue abnormality identified. IMPRESSION: Normal radiographs right hip. Signed by: Rock Yoon 06/14/2024 4:52 PM Dictation workstation: [id number] Normal [facility] XR Hip Viewson 06-14-2024 Normal radiographs r ight hip. Signed by: Rock Yoon 06/14/2024 4:52 PM Dictation workstation: [id number] [facility] Interpreted By: Rock Burgos, STUDY: XR HIP RIGHT WITH PELVIS WHEN PERFORMED 2 OR 3 VIEWS INDICATION: Signs/Symptoms:right lower back pain. COMPARISON: None ACCESSION NUMBER(S): [id number] ORDERING CLINICIAN: BASILIA GAN FINDINGS: No osseous, articular, or soft tissue abnormality identified. MM[facility] Rock Yoon MD - 06/14/2024 Interpreted By: Rock Yoon, STUDY: XR HIP RIGHT WITH PELVIS WHEN PERFORMED 2 OR 3 VIEWS INDICATION: Signs/Symptoms:right lower back pain. COMPARISON: None ACCESSION NUMBER(S): [id number] ORDERING CLINICIAN: BASILIA GAN FINDINGS: No osseous, articular, or soft tissue abnormality identified. IMPRESSION: Normal radiographs right hip. Signed by: Rock Yoon 06/14/2024 4:52 PM Dictation workstation: [id number] [facility] Work Phone: [facility] Work Phone: XR LUMBAR SPINE 2-3 VIEWSon 06-14-2024 XR LUMBAR SPINE 2-3 VIEWS Interpreted By: Rock Yoon, STUDY: XR LUMBAR SPINE 2-3 VIEWS INDICATION: Signs/Symptoms:right lower back pain. COMPARISON: None ACCESSION NUMBER(S): [id number] ORDERING CLINICIAN: BASILIA GAN FINDINGS: Bilateral pars defects at L5 with a mild 1 cm anterolisthesis L5 on S1. No evidence of fracture or other osseous abnormality. IMPRESSION: Bilateral pars defects at L5 with a mild 1 cm anterolisthesis L5 on S1. Signed by: Rock Yoon 06/14/2024 4:52 PM Dictation workstation: [id number] [facility] XR Lumbar spine 2 or 3 Views on 06-14-2024 Bilateral pars defec ts at L5 with a mild 1 cm anterolisthesis L5 on S1. Signed by: Rock Yoon 06/14/2024 4:52 PM Dictation workstation: [id number] [facility] Interpreted By: Rock Burgos, STUDY: XR LUMBAR SPINE 2-3 VIEWS INDICATION: Signs/Symptoms:right lower back pain. COMPARISON: None ACCESSION NUMBER(S): [id number] ORDERING CLINICIAN: BASILIA GAN FINDINGS: Bilateral pars defects at L5 with a mild 1 cm anterolisthesis L5 on S1. No evidence of fracture or other osseous abnormality. [facility] Rock Yoon MD - 06/14/2024 Interpreted By: Rock Yoon, STUDY: XR LUMBAR SPINE 2-3 VIEWS INDICATION: Signs/Symptoms:right lower back pain. COMPARISON: None ACCESSION NUMBER(S): [id number] ORDERING CLINICIAN: BASILIA GAN FINDINGS: Bilateral pars defects at L5 with a mild 1 cm anterolisthesis L5 on S1. No evidence of fracture or other osseous abnormality. IMPRESSION: Bilateral pars defects at L5 with a mild 1 cm anterolisthesis L5 on S1. Signed by: Rock Yoon 06/14/2024 4:52 PM Dictation workstation: [id number] [facility] Work Phone: XR Lumbar spine 2 or 3 Views Ordered By: Rock Yoon on 06-14-2024 [facility] Work Phone: ESTRADIOLon 04-18-2024 ESTRADIOL 76 pg/mL Normal [facility] Comment on above: Result Comment: Refe rence Range Follicular Phase: 19-144 Mid-Cycle: 64-357 Luteal Phase: 56-214 Postmenopausal: < or = 31 Reference range established on post-pubertal patient population. No pre-pubertal reference range established using this assay. For any patients for whom low Estradiol levels are anticipated (e.g. males, pre-pubertal children and hypogonadal/post-menopausal females), the [email or web address] Estradiol, Ultrasensitive, LCMSMS assay is recommended (order code 17791). Please note: patients being treated with the drug fulvestrant (Faslodex(R)) have demonstrated significant interference in immunoassay methods for estradiol measurement. The cross reactivity could lead to falsely elevated estradiol test results leading to an inappropriate clinical assessment of estrogen status. [email or web address] order code 33828-Frkogdwlo, Ultrasensitive LC/MS/MS demonstrates negligible cross reactivity with fulvestrant. Performed By: #### 4 021, 18168, 256, 470 #### [facility] [place] [id number] Bridge Inspector: Manuel Lyons MD FSHon 04-18-2024 FSH 5.4 mIU/mL Normal [facility] Comment on above: Order Comment: FASTI NG:YES FASTING: YES Result Comment: Refe rence Range Follicular Phase 2.5-10.2 Mid-cycle Peak 3.1-17.7 Luteal Phase 1.5- 9.1 Postmenopausal 23.0-116.3 Performed By: #### 4 021, 26469, 646, 470 #### [facility] [address], [address] [place], [place] [address] Bridge Inspector: Manuel Lyons MD PROLACTINon 04-18-2024 PROLACTIN 4.6 ng/mL Normal [facility] Comment on above: Result Comment: Refe rence Range Females Non- 3.0-30.0 10.0-209.0 Postmenopausal 2.0-20.0 Performed By: #### 4 021, 33369, 746, 470 #### [facility] [address], [address] [place], [place] [id number] Bridge Inspector: Manuel Lyons MD TSH W/REFLEX TO FT4on 2024 TSH W/REFLEX TO FT4 0.59 mIU/L Normal [facility] Comment on above: Result Comment: Refe rence Range > or = 20 Years 0.40-4.50 Ranges First trimester 0.26-2.66 Second trimester 0.55-2.73 Third trimester 0.43-2.91 Performed By: #### 4 021, 90153, 746, 470 #### [facility] [address], [address] [place], [place] [id number] Bridge Inspector: Manuel Lyons MD BI MAMMO BILATERAL DIAGNOSTI C TOMOSYNTHESISon 03-21-2024 BI MAMMO BILATERAL DIAGNOSTIC TOMOSYNTHESIS Interpreted By: Roberth Norwood, STUDY: BI MAMMO BILATERAL DIAGNOSTIC TOMOSYNTHESIS; BI US BREAST LIMITED LEFT; 03/21/2024 8:47 am; 03/21/2024 8:58 am ACCESSION NUMBER(S): [id number]; [id number] ORDERING CLINICIAN: BOBBY BARAHONA INDICATION: Signs/Symptoms:left breast pain and hardness; Signs/Symptoms:pain and hardness in left breast. COMPARISON: Digital mammograms dated 05/16/2022 TECHNIQUE: Mammography: CC and MLO 2D digital mammograms and digital breast tomosynthesis images were obtained of the bilateral breasts. 3-D volume images were reconstructed in 4 views at an independent workstation as 1 mm slices through the breasts in both the CC and MLO projections. A skin marker was placed at the site of palpable abnormality. Ultrasound: Multiple grayscale ultrasonographic images were obtained through the left breast in the region of palpable abnormality. FINDINGS: Mammography: Density: The breasts are heterogeneously dense, which may obscure small masses. No discrete mass or focal asymmetry is identified. No suspicious microcalcifications or foci of architectural distortion are seen. There has been no significant change. This study was interpreted with CAD. Ultrasound: No discrete mass or ultrasonographic abnormality is seen in the region of palpable abnormality. IMPRESSION: No mammographic evidence of malignancy. BI-RADS CATEGORY: BI-RADS Category: 1 Negative. Recommendation: Annual Screening. Recommended Date: Age 40 or based on Risk-Assessment. Laterality: Bilateral. Negative or benign mammogram and ultrasound should not preclude further evaluation of a suspicious clinical abnormality. MACRO: None Signed by: Roberth Norwood 03/21/2024 10:11 AM Dictation workstation: [id number] [facility] BI US BREAST LIMITED LEFTon 03-21-2024 BI US BREAST LIMITED LEFT Interpreted By: Roberth Norwood, STUDY: BI MAMMO BILATERAL DIAGNOSTIC TOMOSYNTHESIS; BI US BREAST LIMITED LEFT; 03/21/2024 8:47 am; 03/21/2024 8:58 am ACCESSION NUMBER(S): [id number]; [id number] ORDERING CLINICIAN: BOBBY BARAHONA INDICATION: Signs/Symptoms:left breast pain and hardness; Signs/Symptoms:pain and hardness in left breast. COMPARISON: Digital mammograms dated 05/16/2022 TECHNIQUE: Mammography: CC and MLO 2D digital mammograms and digital breast tomosynthesis images were obtained of the bilateral breasts. 3-D volume images were reconstructed in 4 views at an independent workstation as 1 mm slices through the breasts in both the CC and MLO projections. A skin marker was placed at the site of palpable abnormality. Ultrasound: Multiple grayscale ultrasonographic images were obtained through the left breast in the region of palpable abnormality. FINDINGS: Mammography: Density: The breasts are heterogeneously dense, which may obscure small masses. No discrete mass or focal asymmetry is identified. No suspicious microcalcifications or foci of architectural distortion are seen. There has been no significant change. This study was interpreted with CAD. Ultrasound: No discrete mass or ultrasonographic abnormality is seen in the region of palpable abnormality. IMPRESSION: No mammographic evidence of malignancy. BI-RADS CATEGORY: BI-RADS Category: 1 Negative. Recommendation: Annual Screening. Recommended Date: Age 40 or based on Risk-Assessment. Laterality: Bilateral. Negative or benign mammogram and ultrasound should not preclude further evaluation of a suspicious clinical abnormality. MACRO: None Signed by: Roberth Norwood 03/21/2024 10:11 AM Dictation workstation: [id number] [facility] DBT Breast - bilateral diagn osticon 03-21-2024 Radiology Study observation (narrative) [facility] Work Phone: No Panel Informationon 03-21 No mammographic evid ence of malignancy. BI-RADS CATEGORY: BI-RADS Category: 1 Negative. Recommendation: Annual Screening. Recommended Date: Age 40 or based on Risk-Assessment. Laterality: Bilateral. Negative or benign mammogram and ultrasound should not preclude further evaluation of a suspicious clinical abnormality. MACRO: None Signed by: Roberth Norwood 03/21/2024 10:11 AM Dictation workstation: [id number] [facility] Interpreted By: Roberth Obrien, STUDY: BI MAMMO BILATERAL DIAGNOSTIC TOMOSYNTHESIS; BI US BREAST LIMITED LEFT; 03/21/2024 8:47 am; 03/21/2024 8:58 am ACCESSION NUMBER(S): [id number]; [id number] ORDERING CLINICIAN: BOBBY BARAHONA INDICATION: Signs/Symptoms:left breast pain and hardness; Signs/Symptoms:pain and hardness in left breast. COMPARISON: Digital mammograms dated 05/16/2022 TECHNIQUE: Mammography: CC and MLO 2D digital mammograms and digital breast tomosynthesis images were obtained of the bilateral breasts. 3-D volume images were reconstructed in 4 views at an independent workstation as 1 mm slices through the breasts in both the CC and MLO projections. A skin marker was placed at the site of palpable abnormality. Ultrasound: Multiple grayscale ultrasonographic images were obtained through the left breast in the region of palpable abnormality. FINDINGS: Mammography: Density: The breasts are heterogeneously dense, which may obscure small masses. No discrete mass or focal asymmetry is identified. No suspicious microcalcifications or foci of architectural distortion are seen. There has been no significant change. This study was interpreted with CAD. Ultrasound: No discrete mass or ultrasonographic abnormality is seen in the region of palpable abnormality. MMODAL Roberth Norwood MD - 03/21/2024 Interpreted By: Roberth Norwood, STUDY: BI MAMMO BILATERAL DIAGNOSTIC TOMOSYNTHESIS; BI US BREAST LIMITED LEFT; 03/21/2024 8:47 am; 03/21/2024 8:58 am ACCESSION NUMBER(S): [id number]; [id number] ORDERING CLINICIAN: BOBBY BARAHONA INDICATION: Signs/Symptoms:left breast pain and hardness; Signs/Symptoms:pain and hardness in left breast. COMPARISON: Digital mammograms dated 05/16/2022 TECHNIQUE: Mammography: CC and MLO 2D digital mammograms and digital breast tomosynthesis images were obtained of the bilateral breasts. 3-D volume images were reconstructed in 4 views at an independent workstation as 1 mm slices through the breasts in both the CC and MLO projections. A skin marker was placed at the site of palpable abnormality. Ultrasound: Multiple grayscale ultrasonographic images were obtained through the left breast in the region of palpable abnormality. FINDINGS: Mammography: Density: The breasts are heterogeneously dense, which may obscure small masses. No discrete mass or focal asymmetry is identified. No suspicious microcalcifications or foci of architectural distortion are seen. There has been no significant change. This study was interpreted with CAD. Ultrasound: No discrete mass or ultrasonographic abnormality is seen in the region of palpable abnormality. IMPRESSION: No mammographic evidence of malignancy. BI-RADS CATEGORY: BI-RADS Category: 1 Negative. Recommendation: Annual Screening. Recommended Date: Age 40 or based on Risk-Assessment. Laterality: Bilateral. Negative or benign mammogram and ultrasound should not preclude further evaluation of a suspicious clinical abnormality. MACRO: None Signed by: Roberth Norwood 03/21/2024 10:11 AM Dictation workstation: [id number] [facility] Work Phone: No Panel InformationOrdered By: Roberth Norwood on 03-21-2024 [facility] Work Phone: US Breast - left limitedon 0 03-21-2024 Radiology Study observation (narrative) [facility] Work Phone: XR CHEST 2 VIEWSon 5 XR CHEST 2 VIEWS Interpreted By: Juice Chandler, STUDY: XR CHEST 2 VIEWS; 03/19/2024 12:43 pm INDICATION: Signs/Symptoms:br pain. ,N64.4 Mastodynia COMPARISON: 12/06/2019 ACCESSION NUMBER(S): [id number] ORDERING CLINICIAN: BOBBY BARAHONA FINDINGS: The cardiomediastinal silhouette and pulmonary vasculature are within normal limits. No consolidation, pleural effusion or pneumothorax. IMPRESSION: No acute cardiopulmonary process. MACRO: None. Signed by: Juice Chandler 03/20/2024 10:10 PM Dictation workstation: [id number] Normal [facility] Urinalysis complete W Reflex Culture panel (U)on 11-15-2023 Appearance (U) Clear Normal Clear [facility] Comment on above: Performed By: #### 5 8077-9 #### JOANNA PEREZ ([id number]) [facility] ([facility]) [address] [place], [place] [id number] Bilirubin (U) [Mass/Vol] Negative Normal NEGATIVE [facility] Comment on above: Performed By: #### 5 8077-9 #### JOANNA PEREZ ([id number]) [facility] ([facility]) [address] [place], [place] [address] Color (U) Light-Yellow Normal Light-Yello w, Yellow, Dark-Yellow [facility] Comment on above: Performed By: #### 5 8077-9 #### JOANNA PEREZ ([id number]) [facility] ([facility]) [address] [place] [address] 24088 Glucose Auto test strip (U) [Mass/Vol] Normal Normal Normal [facility] Comment on above: Performed By: #### 5 8077-9 #### JOANNA PEREZ ([id number]) [facility] ([facility]) [address] [place] [address] 67449 Ketones (U) [Mass/Vol] Negative Normal NEGATIVE [facility] Comment on above: Performed By: #### 5 8077-9 #### JOANNA PEREZ ([id number]) [facility] ([facility]) [address] [place] [address] 13257 Leukocyte esterase Auto test strip Ql (U) Negative Normal NEGATIVE [facility] Comment on above: Performed By: #### 5 8077-9 #### JOANNA PEREZ ([id number]) [facility] ([facility]) [address] [place] [address] 11949 Nitrite Auto test strip Ql (U) Negative Normal NEGATIVE [facility] Comment on above: Performed By: #### 5 8077-9 #### JOANNA PEREZ ([id number]) [facility] ([facility]) [address] [place] [address] 72731 pH (U) 7.0 [pH] Normal 5.0, 5.5, 6.0, 6.5, 7.0, 7.5, 8.0 [facility] Comment on above: Performed By: #### 5 8077-9 #### JOANNA PEREZ ([id number]) [facility] ([facility]) [address] [place] [address] Protein (U) [Mass/Vol] Negative Normal NEGATIVE, 10 (TRACE), 20 (TRACE) [facility] Comment on above: Performed By: #### 5 8077-9 #### JOANNA PEREZ ([id number]) [facility] ([facility]) [address] [place] [address] RBC (U) [#/Vol] Negative Normal NEGATIVE [facility] Comment on above: Performed By: #### 5 8077-9 #### JOANNA PEREZ ([id number]) [facility] ([facility]) [address] [place] [address] Specific gravity (U) [Rel density] 1.005 Normal 1.005-1.035 [facility] Comment on above: Performed By: #### 5 8077-9 #### JOANNA PEREZ ([id number]) [facility] ([facility]) [address] [place] [address] 86758 Urobilinogen (U) [Mass/Vol] Normal Normal Normal [facility] Comment on above: Performed By: #### 5 8077-9 #### JOANNA PEREZ ([id number]) [facility] ([facility]) [address] [place] [address] 92149 CBC panel Auto (Bld)on 11-03 Erythrocyte distribution width (RBC) [Ratio] 12.2 % Normal 11.5-14.5 [facility] Comment on above: Performed By: #### 5 8410-2 #### JOANNA PEREZ ([id number]) [facility] ([facility]) [address] [place] [address] Hematocrit (Bld) [Volume fraction] 42.6 % Normal 36.0-46.0 [facility] Comment on above: Performed By: #### 5 8410-2 #### JOANNA PEREZ ([id number]) [facility] ([facility]) [address] [place] [address] Hemoglobin (Bld) [Mass/Vol] 14.3 g/dL Normal 12.0-16.0 [facility] Comment on above: Performed By: #### 5 8410-2 #### JOANNA PEREZ ([id number]) [facility] ([facility]) [address] [place] [address] 16998 MCH (RBC) [Entitic mass] 31.3 pg Normal 26.0-34.0 [facility] Comment on above: Performed By: #### 5 8410-2 #### JOANNA PEREZ ([id number]) [facility] ([facility]) [address] [place] [address] 67046 MCHC (RBC) [Mass/Vol] 33.6 g/dL Normal 32.0-36.0 [facility] Comment on above: Performed By: #### 5 8410-2 #### JOANNA PEREZ ([id number]) [facility] ([facility]) [address] [place] [address] 41048 MCV (RBC) [Entitic vol] 93 fL Normal 80-100 [facility] Comment on above: Performed By: #### 5 8410-2 #### JOANNA PEREZ ([id number]) [facility] ([facility]) [address] [place] [address] 51660 Nucleated RBC/100 WBC (Bld) [Ratio] 0.0 /100 WBCs Normal 0.0-0.0 [facility] Comment on above: Performed By: #### 5 8410-2 #### JOANNA PEREZ ([id number]) [facility] ([facility]) [address] [place] [address] 03841 Platelets (Bld) [#/Vol] 230 x10*3/uL Normal 150-450 [facility] Comment on above: Performed By: #### 5 8410-2 #### JOANNA PEREZ ([id number]) [facility] ([facility]) [address] [place] [address] 72942 RBC (Bld) [#/Vol] 4.57 x10*6/uL Normal 4.00-5.20 [facility] Comment on above: Performed By: #### 5 8410-2 #### JOANNA PEREZ ([id number]) [facility] ([facility]) [address] [place] [address] 22702 WBC (Bld) [#/Vol] 4.5 x10*3/uL Normal 4.4-11.3 [facility] Comment on above: Performed By: #### 5 8410-2 #### JOANNA PEREZ ([id number]) [facility] ([facility]) [address] [place] [address] Calcidiolon 11-04-2023 25-hydroxyvitamin D3 [Mass/Vol] 37 ng/mL Normal 30-100 [facility] Comment on above: Order Comment: Defic iency: < 20 ng/ml Insufficiency: 20-29 ng/ml Sufficiency: 30-100 ng/ml This assay accurately quantifies the sum of Vitamin D3, 25-Hydroxy and Vitamin D2,25-Hydroxy. Performed By: #### 1 989-3 #### JOANNA PEREZ ([id number]) [facility] ([facility]) [address] [place] [address] 24622 Cobalaminson 11-04-2023 Cobalamin (Vitamin B12) [Mass/Vol] 632 pg/mL Normal 211-911 [facility] Comment on above: Performed By: #### 2 132-9 #### JOANNA PEREZ ([id number]) [facility] ([facility]) [address] [place] [address] 26922 Comprehensive metabolic 2000 panelon 11-04-2023 Albumin BCP dye [Mass/Vol] 4.6 g/dL Normal 3.4-5.0 [facility] Comment on above: Performed By: #### 2 4323-8 #### JOANNA PEREZ ([id number]) [facility] ([facility]) [address] [place] [address] 43413 ALP [Catalytic activity/Vol] 39 U/L Normal 33-110 [facility] Comment on above: Performed By: #### 2 4323-8 #### JOANNA PEREZ ([id number]) [facility] ([facility]) [address] [place] [address] 95082 ALT With P-5'-P [Catalytic activity/Vol] 12 U/L Normal 7-45 [facility] Comment on above: Result Comment: Gabby ents treated with Sulfasalazine may generate falsely decreased results for ALT. Performed By: #### 2 432-8 #### JOANNA PEREZ ([id number]) [facility] ([facility]) [address] [place] [address] 23420 Anion gap [Moles/Vol] 11 mmol/L Normal 10-20 [facility] Comment on above: Performed By: #### 2 432-8 #### JOANNA PEREZ ([id number]) [facility] ([facility]) [address] [place] [address] 92568 AST With P-5'-P [Catalytic activity/Vol] 9 U/L Normal 9-39 [facility] Comment on above: Performed By: #### 2 432-8 #### JOANNA PEREZ ([id number]) [facility] ([facility]) [address] [place] [address] 63804 Bilirubin [Mass/Vol] 0.8 mg/dL Normal 0.0-1.2 [facility] Comment on above: Performed By: #### 2 4323-8 #### JOANNA PEREZ ([id number]) [facility] ([facility]) [address] [place] [address] 44846 Calcium [Mass/Vol] 9.6 mg/dL Normal 8.6-10.3 [facility] Comment on above: Performed By: #### 2 4322-8 #### JOANNA PEREZ ([id number]) [facility] ([facility]) [address] [place] [address] Chloride [Moles/Vol] 106 mmol/L Normal 98-107 [facility] Comment on above: Performed By: #### 2 4323-8 #### JOANNA PEREZ ([id number]) [facility] ([facility]) [address] [place] [address] CO2 [Moles/Vol] 27 mmol/L Normal 21-32 [facility] Comment on above: Performed By: #### 2 4323-8 #### JOANNA PEREZ ([id number]) [facility] ([facility]) [address] [place] [address] 69919 Creatinine [Mass/Vol] 0.74 mg/dL Normal 0.50-1.05 [facility] Comment on above: Performed By: #### 2 4323-8 #### JOANNA PEREZ ([id number]) [facility] ([facility]) [address] [place] [address] 43224 GFR/1.73 sq M.predicted MDRD (S/P/Bld) [Vol rate/Area] mL/min/{1.73_m2} Normal >60 [facility] Comment on above: Result Comment: Calc ulations of estimated GFR are performed using the 2020 CKD-EPI Study Refit equation without the race variable for the IDMS-Traceable creatinine methods. https://jasn.asnjournals.org/content//ASN.4582565 988 Performed By: #### 2 4323-8 #### JOANNA PEREZ ([id number]) [facility] ([facility]) [facility] [place] [address] Glucose [Mass/Vol] 93 mg/dL Normal 74-99 [facility] Comment on above: Performed By: #### 2 4323-8 #### JOANNA PEREZ ([id number]) [facility] ([facility]) [facility] [place] [address] Potassium [Moles/Vol] 4.2 mmol/L Normal 3.5-5.3 [facility] Comment on above: Performed By: #### 2 4323-8 #### JOANNA PEREZ ([id number]) [facility] ([facility]) [address] [place] [address] Protein [Mass/Vol] 6.8 g/dL Normal 6.4-8.2 [facility] Comment on above: Performed By: #### 2 4323-8 #### JOANNA PEREZ ([id number]) [facility] ([facility]) [address] [place] [address] 60176 Sodium [Moles/Vol] 140 mmol/L Normal 136-145 [facility] Comment on above: Performed By: #### 2 4323-8 #### JOANNA PEREZ ([id number]) [facility] ([facility]) [address] [place] [address] 11184 Urea nitrogen [Mass/Vol] 13 mg/dL Normal 6-23 [facility] Comment on above: Performed By: #### 2 4323-8 #### JOANNA PEREZ ([id number]) [facility] ([facility]) [address] [place] [address] 18313 Ferritinon 11-04-2023 Ferritin [Mass/Vol] 140 ng/mL Normal 8-150 [facility] Comment on above: Performed By: #### 2 276-4 #### JOANNA PEREZ ([id number]) [facility] ([facility]) [address] [place] [address] 77948 Follitropinon 11-04-2023 Follitropin Qn 2.8 IU/L Normal [facility] Comment on above: Result Comment: FSH Ref Values Follicular 2.0-12.0 IU/L Mid-Cycle 12.0-25.0 IU/L Luteal Phase 2.0-12.0 IU/L Menopause 30.0-150.0 IU/L Pre-puberty 50% Adult IU/L Adult Male 2.0-10.0 IU/L Infants 0.0-1.0 IU/L Performed By: #### 1 5067-2 #### THAO Duran ([id number]) [facility] ([facility]) [id number] [place] [address] 75344 Iron and Iron binding capaci ty panelon 11-04-2023 Iron [Mass/Vol] 139 ug/dL Normal 35-150 [facility] Comment on above: Performed By: #### 5 0190-8 #### JOANNA PEREZ ([id number]) [facility] ([facility]) [address] [place] [address] 98468 Iron binding capacity [Mass/Vol] 256 ug/dL Normal 240-445 [facility] Comment on above: Performed By: #### 5 0190-8 #### JOANNA PEREZ ([id number]) [facility] ([facility]) [address] [place] [address] 64255 Iron binding capacity.unsaturated [Mass/Vol] 117 ug/dL Normal 110-370 [facility] Comment on above: Performed By: #### 5 0190-8 #### JOANNA PEREZ ([id number]) [facility] ([facility]) [address] [place] [address] 82999 Iron saturation [Mass fraction] 54 % High 25-45 [facility] Comment on above: Performed By: #### 5 0190-8 #### JOANNA PEREZ ([id number]) [facility] ([facility]) [address] [place] [address] 60119 Lipid 1996 panelon Cholesterol [Mass/Vol] 189 mg/dL Normal 0-199 [facility] Comment on above: Result Comment: Age Desirable Borderline High High 0-19 Y 0 - 169 170 - 199 >/= 200 20-24 Y 0 - 189 190 - 224 >/= 225 >24 Y 0 - 199 200 - 239 >/= 240 All ranges are based on fasting samples. Specific therapeutic targets will vary based on patient-specific cardiac risk. Pediatric guidelines reference:Pediatrics 2011, 128(S5).Adult guidelines reference: NCEP ATPIII Guidelines,GALINA 2001, 258:2486-97 Venipuncture immediately after or during the administration of Metamizole may lead to falsely low results. Testing should be performed immediately prior to Metamizole dosing. Performed By: #### 2 4331-1 #### JOANNA PEREZ ([id number]) [facility] ([facility]) [address] [place] [address] 52060 Cholesterol in HDL [Mass/Vol] 55.0 mg/dL Normal [facility] Comment on above: Result Comment: Age Very Low Low Normal High 0-19 Y < 35 < 40 40-45 ---- 20-24 Y ---- < 40 >45 ---- >24 Y ---- < 40 40-60 >60 Performed By: #### 2 4331-1 #### JOANNA PEREZ ([id number]) [facility] ([facility]) [address] [place] [address] 93787 Cholesterol in LDL [Mass/Vol] 122 mg/dL High <=99 [facility] Comment on above: Result Comment: Near Borderline AGE Desirable Optimal High High Very High 0-19 Y 0 - 109 --- 110-129 >/= 130 ---- 20-24 Y 0 - 119 --- 120-159 >/= 160 ---- >24 Y 0 - 99 100-129 130-159 160-189 >/=190 Performed By: #### 2 4331-1 #### JOANNA PEREZ ([id number]) [facility] ([facility]) [address] [place] [address] 15794 Cholesterol in VLDL [Mass/Vol] 12 mg/dL Normal 0-40 [facility] Comment on above: Performed By: #### 2 4331-1 #### JOANNA PEREZ ([id number]) [facility] ([facility]) [address] [place] [address] 17776 CHOLESTEROL/HDL RATIO 3.4 Normal [facility] Comment on above: Result Comment: Ref Values Desirable < 3.4 High Risk > 5.0 Performed By: #### 2 4331-1 #### JOANNA PEREZ ([id number]) [facility] ([facility]) [address] [place] [address] 63031 NON HDL CHOLESTEROL 134 mg/dL Normal 0-149 [facility] Comment on above: Result Comment: Age Desirable Borderline High High Very High 0-19 Y 0 - 119 120 - 144 >/= 145 >/= 160 20-24 Y 0 - 149 150 - 189 >/= 190 ---- >24 Y 30 mg/dL above LDL Cholesterol goal Performed By: #### 2 4331-1 #### JOANNA PEREZ ([id number]) [facility] ([facility]) [address] [place] [address] 75689 Triglyceride [Mass/Vol] 59 mg/dL Normal 0-149 [facility] Comment on above: Result Comment: Age Desirable Borderline High High Very High 0 D-90 D 19 - 174 ---- ---- ---- 91 D- 9 Y 0 - 74 75 - 99 >/= 100 ---- 10-19 Y 0 - 89 90 - 129 >/= 130 ---- 20-24 Y 0 - 114 115 - 149 >/= 150 ---- >24 Y 0 - 149 150 - 199 200- 499 >/= 500 Venipuncture immediately after or during the administration of Metamizole may lead to falsely low results. Testing should be performed immediately prior to Metamizole dosing. Performed By: #### 2 4331-1 #### JOANNA PEREZ ([id number]) [facility] ([facility]) [address] [place], [place] [address] TSH WITH REFLEX TO FREE T4 I F ABNORMALon 11-04-2023 TSH Qn 0.65 m[IU]/L Normal 0.44-3.98 [facility] Comment on above: Order Comment: TSH t esting is performed using different testing methodology at [facility] than at other [facility]. Direct result comparisons should only be made within the same method. Performed By: #### T HYDS #### JOANNA EPREZ ([id number]) [facility] ([facility]) [address] [place], [place] [address] DIGITAL DIAG MAMM BILAT WITH TOMOon 05-16-2022 DIGITAL DIAG MAMM BILAT WITH JACKELINE Patient Name: BASILIA CORONADO STUDY: Digital diagnostic mammogram bilateral with jackeline, left breast ultrasound; 05/16/2022 8:15 am; 05/16/2022 8:26 am ACCESSION NUMBER(S): [id number]; [id number] ORDERING CLINICIAN: JACY BOONE INDICATION: Left lateral breast pain COMPARISON: None. TECHNIQUE: Mammography: CC and MLO 2D digital mammograms and digital breast tomosynthesis images were obtained of the bilateral breasts. 3-D volume images were reconstructed in 4 views at an independent workstation as 1 mm slices through the breasts in both the CC and MLO projections. A skin marker was placed at the site of palpable abnormality. Ultrasound: Multiple grayscale ultrasonographic images were obtained through the left breast in the region of palpable abnormality. FINDINGS: Mammography: The breast tissue is heterogeneously dense, which may obscure small masses. No discrete mass or focal asymmetry is identified. No suspicious microcalcifications or foci of architectural distortion are seen. This study was interpreted with CAD. Ultrasound: No discrete mass or ultrasonographic abnormality is seen in the region of palpable abnormality. IMPRESSION: No mammographic evidence of malignancy. BI-RADS CATEGORY: Category: 1 - Negative. Recommendation: 1 Year Screening. Negative or benign mammogram and ultrasound should not preclude further evaluation of a suspicious clinical abnormality. Electronically signed by: ROBERTH NORWOOD MD [facility] Radiologyon 05-16-2022 MG Breast Diagnostic Normal [address] Work Phone: ULTRASOUND LIMITED BREASTon 05-16-2022 ULTRASOUND LIMITED BREAST Patient Name: BASILIA CORONADO STUDY: Digital diagnostic mammogram bilateral with jackeline, left breast ultrasound; 05/16/2022 8:15 am; 05/16/2022 8:26 am ACCESSION NUMBER(S): [id number]; [id number] ORDERING CLINICIAN: JACY BOONE INDICATION: Left lateral breast pain COMPARISON: None. TECHNIQUE: Mammography: CC and MLO 2D digital mammograms and digital breast tomosynthesis images were obtained of the bilateral breasts. 3-D volume images were reconstructed in 4 views at an independent workstation as 1 mm slices through the breasts in both the CC and MLO projections. A skin marker was placed at the site of palpable abnormality. Ultrasound: Multiple grayscale ultrasonographic images were obtained through the left breast in the region of palpable abnormality. FINDINGS: Mammography: The breast tissue is heterogeneously dense, which may obscure small masses. No discrete mass or focal asymmetry is identified. No suspicious microcalcifications or foci of architectural distortion are seen. This study was interpreted with CAD. Ultrasound: No discrete mass or ultrasonographic abnormality is seen in the region of palpable abnormality. IMPRESSION: No mammographic evidence of malignancy. BI-RADS CATEGORY: Category: 1 - Negative. Recommendation: 1 Year Screening. Negative or benign mammogram and ultrasound should not preclude further evaluation of a suspicious clinical abnormality. Electronically signed by: ROBERTH NORWOOD MD Normal 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 Exam was benign however patient has been experiencing left lateral breast pain intermittently that can last for several days. We will schedule patient for a diagnostic mammogram as well as an ultrasound if indicated otherwise we will follow-up in 1 year we will call patient with any abnormal test results Chief Complaint Patient is here for yearly exam. Patient does NOT DO self breast exams regularly. LMP ABLATION PT STATES FOR THE PAST THREE MONTHS SHE HAS NOTICED A BURNING SENSATION, ON THE LEFT SIDE OF HER BREAST. PT DENIES ANY LUMPS, COLOR CHANGES TO THE SKIN, AND TEXTURE CHANGE. 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 Denies a history of abnormal Pap smears. Patient had an endometrial ablation up about 9 months ago. Initially she says she bled for a prolonged period of time but now only has a little bit of spotting but it can last from 5 to 7 days. She reports that the bleeding is significantly better than it had been prior to the ablation. Patient reports her has had a vasectomy. Patient reports that she has been experiencing left lateral breast pain that comes and will last for several days this has been going on for a couple of months. She has not palpated any breast lumps. Patient reports she stopped breast-feeding over a year ago. Patient has no additional concerns Review of Systems Constitutional: no fever and no chills. Cardiovascular: Reports left breast pain but otherwise denies chest pain or palpitations reports left lateral breast pain. Respiratory: Denies any shortness of breath or cough. Gastrointestinal: Denies any abdominal pain or changes in her bowel habits. Genitourinary: as noted in HPI. Musculoskeletal: Denies any change in her mobility. Psychiatric: Reports chronic trouble sleeping secondary to a 2-year-old. Denies any significant change in her mood. 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) Mild vitamin D deficiency (268.9) (E55.9) Nausea in adult (787.02) (R11.0) OAB (overactive bladder) (596.51) (N32.81) Overweight (BMI 25.0-29.9) (278.02) (E66.3) Women's annual routine gynecological examination (V72.31) (Z01.419) Past Medical History Problems History of abnormal uterine bleeding (V13.29) (Z87.42) Resolved Date: 15 Mar 2022 History of fatigue (V13.89) (Z87.898) Resolved Date: 15 Mar 2022 History of hyperglycemia (V12.29) (Z86.39) Resolved Date: 15 Mar 2022 History of palpitations (V12.59) (Z87.898) Resolved Date: 15 Mar 2022 History of (V13.29) 09/2014-SPONTANEOUS 09/12/2015-39 WEEKS, , MALE, #8 5oz History of Menarche (V21.8) ONSET AGE 11 History of Mild depression (648.44,311) (F53.0) Resolved Date: 15 Mar 2022 History of Negative test (V72.41) (Z32.02) Resolved Date: 15 Mar 2022 History of Pap test, as part of routine gynecological examination (V76.2) (Z01.419) 01/13/2017; NIL History of Screen for STD (sexually transmitted disease) (V74.5) (Z11.3) Resolved Date: 15 Mar 2022 History of Screening for breast cancer (V76.10) (Z12.39) Resolved Date: 15 Mar 2022 History of Screening for cervical cancer (V76.2) (Z12.4) Resolved Date: 15 Mar 2022 History of Wart of hand (078.10) (B07.9) Resolved Date: 15 Mar 2022 Surgical History Problems History of Ankle surgery History of section 02/06/2020 History of Dilation and curettage 03/11/2019 History of Endometrial ablation 09/09/2021 History of Oral surgery History of Ovarian cystectomy 09/15/2014 History of Tonsillectomy 10/31/2017 Family History Mother Family history of hypertension (V17.49) (Z82.49) Father Family history of colitis (V18.59) (Z83.79) Brother Family history of hypertension (V17.49) (Z82.49) Family history of type 2 diabetes mellitus (V18.0) (Z83.3) Grandparent Family history of diabetes mellitus (V18.0) (Z83.3) Family history of hypertension (V17.49) (Z82.49) Family history of malignant neoplasm (V16.9) (Z80.9) Social History Problems Alcohol use (V49.89) (Z78.9) WINE, 1-2 TIMES PER MONTH Former smoker (V15 (more content not included)... Normal [facility] Office Visit ([facility]on 03-15-2022 Follow-up visit Diagnoses/Problems Nausea in adult (787.02) (R11.0) Diarrhea (787.91) (R19.7) Mild vitamin D deficiency (268.9) (E55.9) Depression, major, single episode, moderate (296.22) (F32.1) Orders Depression, major, single episode, moderate Renew: Sertraline HCl - 50 MG Oral Tablet; Take 1 tablet daily Follow-up visit in 6 months Outpatient Follow-up Status: Hold For - Scheduling Requested for: 15Mar2022 Nausea in adult Start: Ondansetron 4 MG Oral Tablet Disintegrating; Take 1 tablet twice daily Provider Impressions Depression: Chronic, controlled on current treatment, Zoloft refill sent to pharmacy Mild vitamin D deficiency: Continue on Vitamin D3 2000 units daily Diarrhea: likely viral, may be food related, instructed to drink plenty of fluids, may take OTC antidiarrhea medication as needed Nausea: prescribed Zofran 4 mg as needed Follow up in 6 months or as needed Chief Complaint 2 month. An interactive audio and video telecommunication system which permits real time communications between the patient (at the originating site) and provider (at the distant site) was utilized to provide this telehealth service. Verbal consent was requested and obtained from BASILIA CORONADO on this date, 03/15/2022 08:15 AM , for a telehealth visit. History of Present Illness Basilia is a 37 yo female, seen virtually today for follow up. She was unable to come into office due to acute diarrhea started this am. She denies fever, however is beginning to feel nauseated. She is home with her toddler who has also been ill. Vitamin D level was low is now taking 2000 units daily, She is feeling better, fatigue is improving Depression symptoms are improved, she thinks Zoloft 50 mg is the best dose. She would like refill. She states she would rather not need to take medication, however she feels great on the Zoloft and will continue on it 'Scores and Scales' PHQ-9 [id number] 04:30PM PHQ-9 #1. Little interest or pleasure in doing things0-Not at allNearly every day - 3 PHQ-9 #2. Feeling down, depressed, or hopelesS0-Not at allNearly every day - 3 PHQ-9 #3. Trouble falling or staying asleep, or sleeping too much0-Not at allNot at all - 0 PHQ-9 #4. Feeling tired or having little energy0-Not at allNearly every day - 3 PHQ-9 #5. Poor appetite or overeating0-Not at allNearly every day - 3 PHQ-9 #6. Feeling bad about yourself or you are a failure or that you have let yourself or your family down0-Not at allNearly every day - 3 PHQ-9 #7. Trouble concentrating on things, such as reading the newspaper or watch television0-Not at allNearly every day - 3 PHQ-9 #8. Moving or speaking so slowly that other people could have noticed. Or the opposite-being so fidgety or restless that you have been moving around a lot more than usual0-Not at allNot at all - 0 PHQ-9 #9. Thoughts that you would be better off , or of hurting yourself0-Not at allNot at all - 0 PHQ-9 #10. If you checked off any problems, how difficult have these problems made it for you to do your work, take care of things at home, or get along with other people?Not difficult at allSomewhat difficult PHQ-9 Total Score (Please update problem list based on total score)018 PHQ-9 Depression SeverityIn Remission (0-4) Review of Systems Constitutional: feeling poorly, but no chills, no fever and no night sweats. Cardiovascular: no chest pain, no intermittent leg claudication, no lower extremity edema, no palpitations and no syncope. Respiratory: no cough, no shortness of breath during exertion, no shortness of breath at rest and no wheezing. Gastrointestinal: diarrhea and nausea, but no abdominal pain, no blood in stools, no constipation, no melena, no rectal pain and no vomiting. Musculoskeletal: no arthralgias, no back pain and no myalgias. Neurological: no difficulty walking, no headache, no limb weakness, no numbness and no tingling. 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 Normal [employer] BASIC METABOLIC PANELon 10-3 -2021 Anion gap [Moles/Vol] 9 mmol/L Low 10 - 20 [facility] Comment on above: Performed By: #### B MP #### [address] [address] Calcium [Mass/Vol] 9.6 mg/dL Normal 8.6 - 10.3 [facility], [place] Comment on above: Performed By: #### B MP #### [address] [address] Chloride [Moles/Vol] 102 mmol/L Normal 98 - 107 [facility] Comment on above: Performed By: #### B MP #### [address] [address] Creatinine [Mass/Vol] 0.68 mg/dL Normal 0.50 - 1.05 [facility] Comment on above: Performed By: #### B MP #### [address] [address] eGFR FEMALE >90 Normal >90 [facility] Comment on above: Result Comment: CALC ULATIONS OF ESTIMATED GFR ARE PERFORMED USING THE 2020 CKD-EPI STUDY REFIT EQUATION WITHOUT THE RACE VARIABLE FOR THE IDMS-TRACEABLE CREATININE METHODS. https://jasn.asnjournals.org/content//ASN.5710153 988 Performed By: #### B MP #### [address] [address] Glucose [Mass/Vol] 76 mg/dL Normal 74 - 99 [facility] [place] Comment on above: Performed By: #### B MP #### [address] [address] HCO3 (Bld) [Moles/Vol] 32 mmol/L Normal 21 - 32 [facility] Comment on above: Performed By: #### B MP #### [address] [address] Potassium [Moles/Vol] 3.9 mmol/L Normal 3.5 - 5.3 [facility] Comment on above: Performed By: #### B MP #### [address] [address] Sodium [Moles/Vol] 139 mmol/L Normal 136 - 145 [facility] [place] Comment on above: Performed By: #### B MP #### [address] [address] Urea nitrogen [Mass/Vol] 14 mg/dL Normal 6 - 23 [facility] Comment on above: Performed By: #### B MP #### [address] [address] Laboratory - Chemistry and C hemistry - challengeon 01-03-2022 Anion gap [Moles/Vol] 9 mmol/L below low threshold 10 - 20 -[facility] Work Phone: Calcium [Mass/Vol] 9.6 mg/dL 8.6 - 10.3 [facility] Work Phone: Chloride [Moles/Vol] 102 mmol/L 98 - 107 [facility] Work Phone: CO2 [Moles/Vol] 32 mmol/L 21 - 32 [facility] Work Phone: Creatinine [Mass/Vol] 0.68 mg/dL See Below [facility] Work Phone: Comment on above: Reference Range: 0.5 0 - 1.05 Glucose [Mass/Vol] 76 mg/dL 74 - 99 [facility] Work Phone: Potassium [Moles/Vol] 3.9 mmol/L 3.5 - 5.3 [facility] Work Phone: Sodium [Moles/Vol] 139 mmol/L 136 - 145 [facility] Work Phone: Urea nitrogen [Mass/Vol] 14 mg/dL 6 - 23 [facility] Work Phone: No Panel Informationon 01-03 >90 >90 [facility] Work Phone: Comment on above: CALCULATIONS OF ALLIE MATED GFR ARE PERFORMED USING THE 2020 CKD-EPI STUDY REFIT EQUATION WITHOUT THE RACE VARIABLE FOR THE IDMS-TRACEABLE CREATININE METHODS.https://jasn.asnjournals.org/content/early//ASN .2887071407 Office Visit ([facility])on 01-03-2022 Follow-up visit Diagnoses/Problems Fatigue (780.79) (R53.83) Elevated blood sugar (790.29) (R73.9) Orders Depression, major, single episode, moderate Renew: Sertraline HCl - 50 MG Oral Tablet; Take 1 tablet daily Elevated blood sugar Basic Metabolic Panel; Status:Active; Requested for:03Jan2022; Fatigue Vitamin B12, Serum; Status:Active; Requested for:03Jan2022; Vitamin D 25-Hydroxy; Status:Active; Requested for:03Jan2022; Provider Impressions Fatigue: Will check Vitamin D and vitamin B12, lab work up in 09/2021 was remarkable, TSH in 07/25 was normal. Elevated blood sugar: Will check BMP return if symptoms persist or worsen Chief Complaint Fatigue - worse recently. History of Present Illness Basilia is a 36 yo female, here today with complains of fatigue over the last 2-3 months, states it has been worse in the last week. She does follow with OBGYN PDD, had uterine ablation 09/2021. She does take zinc and a women's MVI, probiotic, magnesium Is sleeping on average 6-7 hours of sleep at night, interrupted with toddler awakening. Does nap occasionally. 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 Does not take any sleep aid Denies any CP, SOB or other symptoms. 'Scores and Scales' PHQ-9 [id number] 04:30PM PHQ-9 #1. Little interest or pleasure in doing things0-Not at allNearly every day - 3 PHQ-9 #2. Feeling down, depressed, or hopelesS0-Not at allNearly every day - 3 PHQ-9 #3. Trouble falling or staying asleep, or sleeping too much0-Not at allNot at all - 0 PHQ-9 #4. Feeling tired or having little energy0-Not at allNearly every day - 3 PHQ-9 #5. Poor appetite or overeating0-Not at allNearly every day - 3 PHQ-9 #6. Feeling bad about yourself or you are a failure or that you have let yourself or your family down0-Not at allNearly every day - 3 PHQ-9 #7. Trouble concentrating on things, such as reading the newspaper or watch television0-Not at allNearly every day - 3 PHQ-9 #8. Moving or speaking so slowly that other people could have noticed. Or the opposite-being so fidgety or restless that you have been moving around a lot more than usual0-Not at allNot at all - 0 PHQ-9 #9. Thoughts that you would be better off , or of hurting yourself0-Not at allNot at all - 0 PHQ-9 #10. If you checked off any problems, how difficult have these problems made it for you to do your work, take care of things at home, or get along with other people?Not difficult at allSomewhat difficult PHQ-9 Total Score (Please update problem list based on total score)018 PHQ-9 Depression SeverityIn Remission (0-4) Review of Systems Constitutional: feeling tired, but no chills, no fever and no night sweats. Cardiovascular: no chest pain, no intermittent leg claudication, no lower extremity edema, no palpitations and no syncope. Respiratory: no cough, no shortness of breath during exertion, no shortness of breath at rest and no wheezing. Gastrointestinal: no abdominal pain, no blood in stools, no constipation, no diarrhea, no melena, no nausea, no rectal pain and no vomiting. Genitourinary: no dysuria, no change in urinary frequency, no urinary hesitancy, no feelings of urinary urgency and no vaginal discharge. Musculoskeletal: no arthralgias, no back pain and no myalgias. Neurological: no difficulty walking, no headache, no limb weakness, no numbness and no tingling. Psychiatric: no anxiety, no depression, no anhedonia and no substance use disorders. Active Problems Abnormal uterine bleeding (AUB) (626.9) (N93.9) Allergic rhinitis (477.9) (J30.9) control counseling (V25.09) (Z30.09) BMI 27.0-27.9,adult (V85.23) (Z68.27) Depression, major, single episode, moderate (296.22) (F32.1) Encounter for immunization (V03.89) (Z23) Encounter for preventative adult health care examination (V70.0) (Z00.00) GERD (gastroesophageal reflux disease) (530.81) (K21.9) Heart palpitations (785.1) (R00.2) Herpes simplex type 2 infection (054.9) (B00.9) Mild depression (648.44,311) (F53.0) Negative test (V72.41) (Z32.02) OAB (overactive bladder) (596.51) (N32.81) Overweight (BMI 25.0-29.9) (278.02) (E66.3) Screen for STD (sexually transmitted disease) (V74.5) (Z11.3) Screening for breast cancer (V76.10) (Z12.39) Screening for cervical cancer (V76.2) (Z12.4) Wart of hand (078.10) (B07.9) Women's annual routine gynecological examination (V72.31) (Z01.419) Past Medical History History of (V13.29) 09/2014-SPONTANEOUS 09/12/2015-39 WEEKS, , MALE, #8 5oz History of Menarche (V21.8) ONSET AGE 11 History of Pap test, as part of routine gynecological examination (V76.2) (Z01.419) 01/13/2017; NIL Surgical History History of Ankle surgery History of section 02/06/2020 History of Dilation and curettage 03/11/2019 History of Endometrial ablation 09/09/2021 History of Oral surgery History of Ovarian cystectomy 09/15/2014 History of Tonsillectomy (more content not included)... Normal [employer] Tobacco Screening.on 022 Tobacco use status CPHS b) No [facility] Work Phone: VITAMIN B12on 01-03-2022 Cobalamin (Vitamin B12) [Mass/Vol] 467 pg/mL Normal 211 - 911 [facility] Comment on above: Performed By: #### V TB12 #### [address] [address] VITAMIN D, 25-HYDROXYon 12-06 VITAMIN D, 25-HYDROXY 26 ng/mL Abnormal [facility] Comment on above: Result Comment: . DEFICIENCY: < 20 NG/ML INSUFFICIENCY: 20-29 NG/ML SUFFICIENCY: 30-100 NG/ML THIS ASSAY ACCURATELY QUANTIFIES THE SUM OF VITAMIN D3, 25-HYDROXY AND VIT D2,25-HYDROXY. Performed By: #### V TDOH #### [address] [address] Vitamin B12, Serumon 022 Cobalamin (Vitamin B12) [Mass/Vol] 467 pg/mL 211 - 911 [facility] Work Phone: Vitamin D 25-Hydroxyon 01-03 25-hydroxyvitamin D3 [Mass/Vol] 26 ng/mL Abnormal [facility] Work Phone: Comment on above: .DEFICIENCY: < 20 NG /MLINSUFFICIENCY: 20-29 NG/MLSUFFICIENCY: 30-100 NG/MLTHIS ASSAY ACCURATELY QUANTIFIES THE SUM OFVITAMIN D3, 25-HYDROXY AND VIT D2,25-HYDROXY. Office Visit ([facility])on 12-20-2021 Follow-up visit Diagnoses/Problems Depression, major, single episode, moderate (296.22) (F32.1) Allergic rhinitis (477.9) (J30.9) Orders Allergic rhinitis Start: Fluticasone Propionate 50 MCG/ACT Nasal Suspension; INSTILL 1 SQUIRT Twice daily Depression, major, single episode, moderate Start: Sertraline HCl - 25 MG Oral Tablet; Take 1 tablet daily Follow-up visit in 3 months Outpatient Follow-up Status: Hold For - Scheduling Requested for: 20Dec2021 Start: Sertraline HCl - 50 MG Oral Tablet; Take 1 tablet daily Provider Impressions Depression: symptoms well controlled, will start weaning down Zoloft, decrease dose to 25 mg daily. Allergic Rhinitis: Start on Flonase nasal spray 1-2 times daily follow up in 3 months Chief Complaint 6 month. History of Present Illness Basilia is a 36 yo female, here today to follow up on depression. She states I feel like i am doing better, reports no symptoms of depression, getting more sleep has helped; 2 yo child does still occasionally wake during night but is sleeping in his own room Acute concern: She has had recent ear infection was treated in urgent care, she continues to have popping no pain, no drainage, no fever. 'Scores and Scales' PHQ-9 [id number] 03:[id number] 04:30PM PHQ-9 #1. Little interest or pleasure in doing things0-Not at allNearly every day - 3 PHQ-9 #2. Feeling down, depressed, or hopelesS0-Not at allNearly every day - 3 PHQ-9 #3. Trouble falling or staying asleep, or sleeping too much0-Not at allNot at all - 0 PHQ-9 #4. Feeling tired or having little energy0-Not at allNearly every day - 3 PHQ-9 #5. Poor appetite or overeating0-Not at allNearly every day - 3 PHQ-9 #6. Feeling bad about yourself or you are a failure or that you have let yourself or your family down0-Not at allNearly every day - 3 PHQ-9 #7. Trouble concentrating on things, such as reading the newspaper or watch television0-Not at allNearly every day - 3 PHQ-9 #8. Moving or speaking so slowly that other people could have noticed. Or the opposite-being so fidgety or restless that you have been moving around a lot more than usual0-Not at allNot at all - 0 PHQ-9 #9. Thoughts that you would be better off , or of hurting yourself0-Not at allNot at all - 0 PHQ-9 #10. If you checked off any problems, how difficult have these problems made it for you to do your work, take care of things at home, or get along with other people?Not difficult at allSomewhat difficult PHQ-9 Total Score (Please update problem list based on total score)018 PHQ-9 Depression SeverityIn Remission (0-4) Review of Systems Constitutional: no chills, not feeling tired, no fever and no night sweats. ENT: the ears feel full, but no earache, no discharge from the ear(s), no hearing loss, no nasal congestion, no nasal discharge, no hoarseness and no sore throat. Cardiovascular: no chest pain, no intermittent leg claudication, no lower extremity edema, no palpitations and no syncope. Respiratory: no cough, no shortness of breath during exertion, no shortness of breath at rest and no wheezing. Gastrointestinal: no abdominal pain, no blood in stools, no constipation, no diarrhea, no melena, no nausea, no rectal pain and no vomiting. Integumentary: no new skin lesions and no rashes. Neurological: no difficulty walking, no headache, no limb weakness, no numbness and no tingling. Psychiatric: no anxiety, no depression, no anhedonia and no substance use disorders. 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.9) (B00.9) Mild depression (648.44,311) (F53.0) Negative test (V72.41) (Z32.02) OAB (overactive bladder) (596.51) (N32.81) Overweight (BMI 25.0-29.9) (278.02) (E66.3) Screen for STD (sexually transmitted disease) (V74.5) (Z11.3) Screening for breast cancer (V76.10) (Z12.39) Screening for cervical cancer (V76.2) (Z12.4) Wart of hand (078.10) (B07.9) Women's annual routine gynecological examination (V72.31) (Z01.419) Past Medical History History of (V13.29) 09/2014-SPONTANEOUS 09/12/2015-39 WEEKS, , MALE, #8 5oz History of Menarche (V21.8) ONSET AGE 11 History of Pap test, as part of routine gynecological examination (V76.2) (Z01.419) 01/13/2017; NIL Surgical History History of Ankle surgery History of section 02/06/2020 History of Dilation and curettage 03/11/2019 History of Endometrial ablation 09/09/2021 History of Oral surgery History of Ovarian cystectomy 09/15/2014 History of Tonsillectomy 10/31/2017 Fam (more content not included)... Normal [employer] Tobacco Screening.on 022 Tobacco use status HS b) No -[facility] Work Phone: Provider Note - ED v3on 11-04 Provider Note - ED v3 Provider Note: Chart Review: ED NOTES ED NOTES: Patient presents for evaluation of right ear pain that has been ongoing for the past few days. Patient states she did have some nasal congestion a few weeks ago which resolved completely. Denies fever, cough, nasal congestion, sore throat, body aches, fatigue, headache, headache, nausea/vomiting/diarrhea, abdominal pains or any other associated symptom or complaint. No OTC meds used symptom management. No other complaints. HISTORY OF PRESENTING ILLNESS BASILIA is a 36 year old Female and was seen by me at 22-Nov-2021 17:39. Triage Information: Most recent Vital Sign Value Date PAST MEDICAL HISTORY ALLERGIES/INTOLERANCES: No Known Allergies HEALTH HISTORY: Medical History Name:Anxiety and depression Code:F41.9 OUTPATIENT MEDICATIONS: Home Medications Review Status for Reconciliation: Complete Med Status: Patient Currently Takes Medications Drug Name: sertraline 50 mg oral tablet Instructions: 1 tab(s) orally once a day Drug Name: Zinc Instructions: 1 tab(s) orally once a day Drug Name: ashwagandha Instructions: 1 tab(s) orally once a day Drug Name: apple cider vinegar Instructions: 1 tab(s) orally once a day Drug Name: neomycin/polymyxin B/hydrocortisone 0.35%-10,000 units/mL-1% otic suspension Instructions: 4 drop(s) in right ear 2 times a day x 7 days SIGNIFICANT EVENTS: Clinical Events Description:Surgical Procedure Additional Notes:1. Hysteroscopy D&C;2. Endometrial ablation;3. ;4. ;5. Immunizations Description:Tdap Description:.Influenza- Influenza Virus Description:Tdap Past Medical History Description:pt denies Past Surgical History Description: Section x 1 Description:Tonsillectomy Description:ovarain cyst ruptured SCIENTIFIC PROGRAMMER: Is : no Is : no REVIEW OF SYSTEMS All other systems reviewed and are negative REVIEW OF SYSTEMS: Comments See HPI PHYSICAL EXAM CONSTITUTIONAL: Well appearing, well nourished, awake, alert, oriented to person, place, time/situation and in no apparent distress. HENMT: Airway patent, ears with clear tympanic membranes bilaterally, R EAC slightly edematous and erythematous without drainage and tenderness with pulling pinna, L EAC clear. Nasal mucosa clear. Mouth with normal mucosa. Throat has no vesicles, no oropharyngeal exudates and uvula is midline. Face with no lymph node enlargement. EYES: Clear bilaterally, pupils equal, round and reactive to light. CARDIOVASCULAR: Normal rate, regular rhythm. Heart sounds S1, S2. No murmurs, rubs or gallops. PMI non-displaced. RESPIRATORY: Breath sounds clear and equal bilaterally. NEUROLOGICAL: Alert and oriented, no focal deficits, no motor or sensory deficits. SKIN: Skin normal color for race, warm, dry and intact. No evidence of trauma. PSYCHIATRIC: Alert and oriented to person, place, time/situation. normal mood and affect. No apparent risk to self or others. CRITICAL CARE VITAL SIGNS: T PRBP SpO2O2(LPM) %FiO2 Method 22-Nov-2021 17:34:[id number] MDM MDM/ED COURSE: Discussed Findings with: patient Data Reviewed: vital signs Treatment Plan: Rx Maxitrol drops. Patient's clinical presentation is otherwise unremarkable at this time. Patient is discharged with instructions to follow-up with primary care or seek emergency medical attention for worsening symptoms or any new concerns. DISPOSITION Diagnosis/Annotation: ED Dx Name:Other infective acute otitis externa of right ear Code:H60.391 Disposition: discharged CONSULT CRITICAL CARE TIME Is this a critically ill patient: no Electronic Signatures: Jacob Titus (PREPAROLE COUNSELING AIDE-HOME CARE LIAISON) (Signed 22-Nov-2021 17:48) Authored: ED Notes, HPI, PMH, ROS, PE, Results/Vital Signs, MDM/ED Course, Clinical Impression, Attestation, Chart Review, Scores Last Updated: 22-Nov-2021 17:48 by Jacob Titus (PREPAROLE COUNSELING AIDE-HOME CARE LIAISON) [facility] LMPon 09-22-2021 Last menstrual period start date ABL[facility] Work Phone: SCIENTIFIC PROGRAMMER - Post Opon 2 SCIENTIFIC PROGRAMMER - Post Op Diagnoses/Problems Assessed Abnormal uterine bleeding (AUB) (626.9) (N93.9) Orders Abnormal uterine bleeding (AUB) Follow-up PRN Outpatient Follow-up Status: Active Requested for: [id number] Provider Impressions 1)AUB-status post endometrial ablation. Patient healing well. Reviewed bleeding profile scar sheds. Discussed with annual potential return to cycles with the may look like in relation to her PMDD. All questions answered. Chief Complaint PT IS HERE TODAY FOR A 2 WEEK POST OP FROM AN ABLATION ON 09/09/2021. HAS NO CONCERNS. History of Present [id number]-gyzf-qyt presents 2 weeks status post DANDC ablation. Patient doing well. Minimal spotting at this point. No abdominal pain. No other acute concerns. Discussed questions about cycle and her PMDD. Review of Systems Constitutional: No fevers, chills Eye:no vision changes Respiratory: no SOB Cardiovascular: no chest pain Gastrointestinal: No nausea, vomiting, diarrhea, constipation, abdominal pain Genitourinary:no dysuria Gynecology: See HPI 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.9) (B00.9) Mild depression (648.44,311) (F53.0) Negative test (V72.41) (Z32.02) OAB (overactive bladder) (596.51) (N32.81) Overweight (BMI 25.0-29.9) (278.02) (E66.3) Screen for STD (sexually transmitted disease) (V74.5) (Z11.3) Screening for breast cancer (V76.10) (Z12.39) Screening for cervical cancer (V76.2) (Z12.4) Wart of hand (078.10) (B07.9) Women's annual routine gynecological examination (V72.31) (Z01.419) Past Medical History History of (V13.29) 09/2014-SPONTANEOUS 09/12/2015-39 WEEKS, , MALE, #8 5oz History of Menarche (V21.8) ONSET AGE 11 History of Pap test, as part of routine gynecological examination (V76.2) (Z01.419) 01/13/2017; NIL Surgical History History of Ankle surgery History of section 02/06/2020 History of Dilation and curettage 03/11/2019 History of Endometrial ablation 09/09/2021 History of Oral surgery History of Ovarian cystectomy 09/15/2014 History of Tonsillectomy 10/31/2017 Family History Family history of hypertension (V17.49) (Z82.49) Family history of colitis (V18.59) (Z83.79) Family history of hypertension (V17.49) (Z82.49) Family history of type 2 diabetes mellitus (V18.0) (Z83.3) Family history of diabetes mellitus (V18.0) (Z83.3) Family history of hypertension (V17.49) (Z82.49) Family history of malignant neoplasm (V16.9) (Z80.9) Social History Alcohol use (V49.89) (Z72.89) WINE, 1-2 TIMES PER MONTH Former smoker (V15.82) (Z87.891) No illicit drug use Patient has living will (V49.89) (Z78.9) Sexually active Allergies No Known Drug Allergies Recorded By: Noemy Gambino; 01/21/2019 4:19:43 PM Current Meds Medication NameInstruction Apple Cider Vinegar CAPS Ashwagandha 500 MG Oral Capsule B-12 2500 MCG Oral Tablet B-6 100 MG Oral Tablet Multi-Vitamins TABS Probiotic CAPS Sertraline HCl - 50 MG Oral TabletTake 1 tablet daily Stress ReLeaf CAPS Zinc 50 MG CAPS Vitals Vital Signs Recorded: [id number] 03:46PM Ribsjfqa010 Lipnudhwi08 Height5 ft 6 in Fvjcuj563 lb 12.48 oz BMI Rhsucpcknp76.76 kg/m2 BSA Calculated1.85 LMPABLATION Physical Exam General: None acute distress Eye: Intraocular movements are intact HEENT: Normocephalic Cardiovascular: Regular rate Respiratory: Respirations are nonlabored Gastrointestinal: Nondistended Musculoskeletal: Normal range of motion Neurologic: Alert and oriented x3 Psychiatric: Cooperative appropriate mood and affect. Results/Data Surgical Jkkfvwtic16Wvh1612 10:40July Carbone Test NameResultFlagReference Case Surgical Pathology(Report) Name BASILIA CORONADO Pathologist: EDEL LANDERS DO Date of Procedure: 09/09/2021 Date Received: 09/09/2021 Date Reported 09/13/2021 Submitting Physician: JULY NIX DO Location: [facility] Other External # FINAL DIAGNOSIS A. ENDOMETRIUM, CURETTAGE: -- MID SECRETORY PHASE ENDOMETRIUM. -- SQUAMOUS AND ENDOCERVICAL MUCOSA WITH IMMATURE SQUAMOUS METAPLASIA IN THE BACKGROUND OF CHRONIC INFLAMMATION. Electronically Signed Out By EDEL LANDERS DO/CMB By the signature on this report, the individual or group listed as making the Final Interpretation/Diagnosis certifies that they have reviewed this case. Diagnostic interpretation performed at [facility] [address] [facility] [address] Clinical History: Physician Contact Number: [phone] Fixative (A): Formali (more content not included)... Normal [employer] No Panel Informationon 09-09 [facility] Work Phone: Order Reconciliationon 09-09 Order Reconciliation Page 1 Discharge Reconciliation Document Reconciliation Type: Discharge requested on behalf of July Nix (Physician) done by July Nix () Discharge - Reconciliation: 09-Sep-2021 11:11 by: July Nix () Home Medications EnteredHOME MEDICATIONS AT DISCHARGE DateReconciliation Comment/ Additional Information apple cider vinegar 1 tab(s) orally once a day 02-Sep-2021 10:32 apple cider vinegar 1 tab(s) orally once a day 02-Sep-2021 10:32 apple cider vinegar is continued as apple cider vinegar ashwagandha 1 tab(s) orally once a day 02-Sep-2021 10:32 ashwagandha 1 tab(s) orally once a day 02-Sep-2021 10:32 ashwagandha is continued as ashwagandha Multivitamins oral tablet (obsolete) 1 tab(s) orally once a day 09-Sep-2021 09:42 Multivitamins oral tablet (obsolete) 1 tab(s) orally once a day 09-Sep-2021 09:42 Multivitamins oral tablet (obsolete) is continued as Multivitamins oral tablet (obsolete) sertraline 50 mg oral tablet 1 tab(s) orally once a day 27-Aug-2021 10:00 sertraline 50 mg oral tablet 1 tab(s) orally once a day 27-Aug-2021 10:00 sertraline 50 mg oral tablet is continued as sertraline 50 mg oral tablet Zinc 1 tab(s) orally once a day 02-Sep-2021 10:31 Zinc 1 tab(s) orally once a day 02-Sep-2021 10:31 Zinc is continued as Zinc Current OrdersDateHOME MEDICATIONS AT DISCHARGE DateReconciliation Comment/ Additional Information Lactated Ringers Infusion IV Bag Volume = 1,000 mL Run at: 100 mL/hr IntraVenous Clinician Notes: Bonita-operative order ONLY 09-Sep-2021 07:55 Lactated Ringers Infusion is not required Lactated Ringers Infusion IV Bag Volume = 1,000 mL Run at: 125 mL/hr IntraVenous 08-Sep-2021 10:23 Lactated Ringers Infusion is not required Lactated Ringers Infusion IV Bag Volume = 1,000 mL Run at: 30 mL/hr IntraVenous 09-Sep-2021 07:55 Lactated Ringers Infusion is not required Midazolam Injectable (VERSED)DOSE = 1 mg IntraVenous Push Once 09-Sep-2021 07:55 Midazolam Injectable is not required Morphine Injectable DOSE = 4 mg IntraVenous Push Every 5 Minutes, PRN Pain - Severe (7-10) (PACU)Clinician Notes: Bonita-operative order ONLYMax total of 20 mg regardless of dose. 09-Sep-2021 07:55 Morphine Injectable is not required oxyCODONE Immediate Release Tablet (OXYIR, ROXICODONE)DOSE = 5 mg Oral Every 4 Hours, PRN Pain - Mod (4-6) (PACU) when able to take OralClinician Notes: Bonita-operative order ONLY 09-Sep-2021 07:55 oxyCODONE Immediate Release is not required All Active Home Medications at time of Discharge Reconciliation: 09-Sep-2021 11:11 apple cider vinegar 1 tab(s) orally once a day ashwagandha 1 tab(s) orally once a day Multivitamins oral tablet (obsolete) 1 tab(s) orally once a day sertraline 50 mg oral tablet 1 tab(s) orally once a day Zinc 1 tab(s) orally once a day Normal [facility] Surgical Pathology Depar tmenton 09-09-2021 [facility] Surgical Pathology Department Name BASILIA CORONADO Pathologist: EDEL LANDERS DO Date of Procedure: 09/09/2021 Date Received: 09/09/2021 Date Reported 09/13/2021 Submitting Physician: JULY NIX DO Location: [facility] Other External # FINAL DIAGNOSIS A. ENDOMETRIUM, CURETTAGE: -- MID SECRETORY PHASE ENDOMETRIUM. -- SQUAMOUS AND ENDOCERVICAL MUCOSA WITH IMMATURE SQUAMOUS METAPLASIA IN THE BACKGROUND OF CHRONIC INFLAMMATION. Electronically Signed Out By EDEL LANDERS DO/CMB By the signature on this report, the individual or group listed as making the Final Interpretation/Diagnosis certifies that they have reviewed this case. Diagnostic interpretation performed at [place] [address] Clinical History: Physician Contact Number: [phone] Fixative (A): Formalin Clinical Diagnosis History Abnormal uterine and vaginal bleeding, unspecified Specimens Submitted As: A: ENDOMETRIAL CURETTINGS Gross Description: Received in formalin, labeled with the patient's name and hospital number and endometrial curettings, are multiple fragments of mucus, blood, and soft tissue aggregating to 2.8 x 2.7 x 0.7 cm. The specimen is submitted in toto in one cassette. The specimen may not survive processing. [facility] rcc/09/09/2021 [facility] Department of Pathology [address] [place] [address] Normal [facility] Comment on above: Performed By: #### U [facility] #### [facility] Surgical Pathology Department [address] [place] [address] CORONAVIRUS 2019, SCREEN ASY MPTOMATICon 09-08-2021 SARS-CoV-2 (COVID-19) RNA RENAY+probe Ql (Unsp spec) Not detected Normal Not Detected [facility] Comment on above: Result Comment: . This assay is designed to detect the N, ORF1ab and/or S genes of SARS-CoV-2 via nucleic acid amplification. A Negative (NOT DETECTED) result does not preclude 2019-nCoV infection since the adequacy of sample collection and/or low viral burden may result in presence of viral nucleic acids below the clinical sensitivity of this test method. Negative (NOT DETECTED) result should not be used as the sole basis for treatment or other patient management decisions. Rather negative results should be combined with clinical observations, patient history, and epidemiological information to make patient management decisions. Fact sheet for providers: https://www.fda.gov/media/888232/download Fact sheet for patients: https://www.fda.gov/media/734656/download This test has received FDA Emergency Use Authorization (EUA) and has been verified by [facility] ([facility]). This test is only authorized for the duration of time that circumstances exist to justify the authorization of the emergency use of in vitro diagnostic tests for the detection of SARS-CoV-2 virus and/or diagnosis of COVID-19 infection under section 564(b)(1) of the Act, 21 U.S.C. 360bbb-3(b)(1), unless the authorization is terminated or revoked sooner. [facility] is certified under CLIA-88 as qualified to perform high complexity testing. Testing is performed in the [facility] laboratories located at [address] [place] [address]. Performed By: #### C OVSC ####[id number] [place] [address] Covid 19 Resultson 2 SARS-CoV-2 (COVID-19) RNA RENAY+probe Ql (Unsp spec) NEGATIVE COVID-19 Test Coronaviruses are common world-wide and are the cause of many common colds. SARS-COV2 is a new coronavirus that began circulating worldwide in 2019 so we are calling it COVID-19. It has been estimated that four out of five patients with COVID-19 will recover at home without the need for medical attention. Symptoms of COVID-19 may include cough, fever, shortness of breath, loss of taste or smell and other flu-like symptoms including chills, sore muscles, sore throat, and headache. Severe illness is more common in older people and people with other health problems such as high blood pressure, obesity, and immune system problems. If the test is positive, you have COVID-19. You will be contacted by the ordering physicians office and instructed to remain on home isolation, in accordance with CDC guidelines. You may also be contacted by the [facility] to see if any of your close contacts may have been exposed to the virus and need to quarantine. If the test is negative, you likely do not have COVID-19 at this time, but you still may have a different illness that can spread to other people (like Influenza, or the Flu) and could still be at risk for getting COVID-19. We recommend that you stay away from other people to limit the spread of illness until your symptoms are improving and you are fever-free for 24 hours without the use of fever lowering medications such as acetaminophen or ibuprofen. No test is 100% accurate so if you are still concerned you may have COVID-19, talk to your doctor about the need to continue to stay away from others. Medicines Unless your provider told you not to use the following: Acetaminophen (Tylenol and others) is generally safe. Anti-inflammatory medications, such as Ibuprofen (Advil or Motrin) or Naproxen (Aleve) can also be used. Hjzh-evh-crmrwjj cough and cold medicines can be used according to the instructions on the package. Some gyqc-blh-rhmdaqs medicines also contain acetaminophen. Make sure you are not taking more than your recommended dose. For those not hospitalized, there is no specific treatment available for this illness. Antibiotics do not treat Coronaviruses. Follow-Up Follow up with your doctor by scheduling a virtual visit or consider follow-up at one of our urgent care fever clinics. If you are having difficulty breathing, or are very weak and having difficulty standing, this is a medical emergency. Call 911 or have someone take you to the nearest emergency room immediately. If possible, wear a facemask. Additional guidance from the CDC for patients who tested POSITIVE for COVID-19 How to isolate: Isolate yourself in a specific room at home and limit your contact with others. Use a separate bathroom from other members of the household, when possible. Leave home only to get essential medical care. Do not go to work, school or public areas. Avoid using public transportation, ride-sharing, or taxis. Restrict contact with pets and other animals. If you must care for your pet or be around animals while you are sick, wash your hands before and after your interaction and wear a facemask. Make sure that shared spaces in the home have good airflow, such as by an air conditioner or an opened window, weather permitting. Personal Hygiene Procedures: Wear a face mask when in the same room as other people or pets. If a face mask interferes with your breathing, others should wear a mask when sharing space with you. Frequent hand-washing: wash your hands with soap and water for at least 20 seconds. If soap and water are not available, use alcohol-based hand bone drier operator. Avoid touching your eyes, nose, and mouth with unwashed hands. Household Hygiene Procedures: Avoid sharing personal household items such as dishes, glassware, cups, eating utensils, towels or bedding with other people or pets in your home. After use, these items should be washed with soap and hot water. Disinfect all high-touch surfaces every day with antibacterial cleaning solutions such as Lysol wipes, bleach, cleansers, etc. High-touch surfaces include tabletops, doorknobs, bathroom fixtures, toilets, phones, keyboards, tablets and bedside tables. Immediately clean any surfaces that may have blood, poop or body fluids on them, using antibacterial cleaning solutions such as Lysol wipes, bleach, cleansers, etc. If clothing or bedding come into contact with blood, poop or body fluids, they should be washed immediately. Follow the directions on the laundry detergent and clothing labels but hot water is recommended when possible. Stopping home isolation precautions: If possible, consult your doctor before stopping home isolation precautions. According to the CDC, you can discontinue home isolation precautions when you have met both of these criteria: Your fever and respiratory symptoms have been gone for 24 rush (more content not included)... Normal [facility] CBCon 09-07-2021 Erythrocyte distribution width (RBC) [Ratio] 13.3 % Normal 11.5 - 14.5 [facility] Comment on above: Performed By: #### C BC #### [address] [address] Hematocrit (Bld) [Volume fraction] 39.3 % Normal 36.0 - 46.0 [facility] Comment on above: Performed By: #### C BC #### [address] [address] Hemoglobin (Bld) [Mass/Vol] 13.3 g/dL Normal 12.0 - 16.0 [facility] Comment on above: Performed By: #### C BC #### [address] [address] MCHC (RBC) [Mass/Vol] 33.9 g/dL Normal 32.0 - 36.0 [facility] Comment on above: Performed By: #### C BC #### [address] [address] MCV (RBC) [Entitic vol] 92 fL Normal 80 - 100 [facility] Comment on above: Performed By: #### C BC #### [address] [address] Platelets (Bld) [#/Vol] 217 10*3/uL Normal 150 - 450 [facility] Comment on above: Performed By: #### C BC #### [address] [address] RBC 4.27 x10E12/L Normal 4.00 - 5.20 [facility] Comment on above: Performed By: #### C BC #### [address] [address] WBC (Bld) [#/Vol] 5.1 10*3/uL Normal 4.4 - 11.3 [facility] Comment on above: Performed By: #### C BC #### [address] [address] CORONAVIRUS 2019, SCREEN ASY MPTOMATICon 09-07-2021 Lab Specimen Source Nasal, Nasopharyngeal Normal [facility] Comment on above: Performed By: #### C OVSC ####[id number] [place] [address] Coronavirus 2019 RNA by PCR, Screening Asymptomticon 09-07-2021 Coronavirus 2019 RNA by PCR, Screening Asymptomtic Not detected Normal See Below [facility] [address] [employer] Work Phone: Comment on above: SOURCE: Nasal, Nasop haryngealReference Range: Not Detected.This assay is designed to detect the N, ORF1ab and/or S genes of SARS-CoV-2 via nucleic acid amplification. A Negative (NOT DETECTED) result does not preclude 2019-nCoV infection since the adequacy of sample collection and/or low viral burden may result in presence of viral nucleic acids below the clinical sensitivity of this test method. Negative (NOT DETECTED) result should not be used as the sole basis for treatment or other patient management decisions. Rather negative results should be combined with clinical observations, patient history, and epidemiological information to make patient management decisions.Fact sheet for providers: https://www.fda.gov/media/307430/downloadFact sheet for patients: https://www.fda.gov/media/281161/downloadThis test has received FDA Emergency Use Authorization (EUA) and has been verified by [facility] ([facility]). This test is only authorized for the duration of time that circumstances exist to justify the authorization of the emergency use of in vitro diagnostic tests for the detection of SARS-CoV-2 virus and/or diagnosis of COVID-19 infection under section 564(b)(1) of the Act, 21 U.S.C. 360bbb-3(b)(1), unless the authorization is terminated or revoked sooner. [facility] is certified under CLIA-88 as qualified to perform high complexity testing. Testing is performed in the [facility] laboratories located at [address] [place] [address]. HCG, Beta Quantitativeon HCG.beta subunit Qn m[IU]/mL [address] Work Phone: Comment on above: Low-level positive H CG results can be seen in early , in bonita- or post-menopausal females due to normal pituitary HCG production, or with analytic interference. Repeat testing in 48-72 hours can aid in assessing for as results should double in this time period. FSH measurement is recommended in bonita- or post-menopausal females as concurrent elevation of FSH can support pituitary production as the source of the HCG elevation.. Total HCG measurement is performed using the [employer] Access Immunoassay which detects intact HCG and free beta HCG subunit. This test is not indicated for use as a tumor marker. HCG testing is performed using a different test methodology at [facility] than [facility]. Direct result comparison should only be made within the same method. REF VALUESNON FEMALE <5MALES <5 HCG, Serum - Qualitativeon 0 09-07-2021 HCG ( test) Ql Canceled [employer] Work Phone: HCG,BETA-QUANTITATIVEon - HCG,BETA-QUANTITATIV E <2 Normal [facility] Comment on above: Result Comment: Low- level positive HCG results can be seen in early , in bonita- or post-menopausal females due to normal pituitary HCG production, or with analytic interference. Repeat testing in 48-72 hours can aid in assessing for as results should double in this time period. FSH measurement is recommended in bonita- or post-menopausal females as concurrent elevation of FSH can support pituitary production as the source of the HCG elevation. . Total HCG measurement is performed using the [employer] Access Immunoassay which detects intact HCG and free beta HCG subunit. This test is not indicated for use as a tumor marker. HCG testing is performed using a different test methodology at [facility] than other [facility]. Direct result comparison should only be made within the same method. REF VALUES NON FEMALE <5 MALES <5 Performed By: #### H CGQU #### [address] [address] HCG,SERUM QUALITATIVEon HCG,SERUM QUALITATIVE Canceled Normal [facility] Comment on above: Order Comment: TEST HCG,SERUM QUALITATIVE WAS CANCELLED, 09/07/2021 10:09 No longer performing qualitative serum HCG testing. Ordered quantitative HCG.. Performed By: #### H CGS #### [address] [address] Laboratory - Blood bankon ABO group Nom (Bld) Canceled [facility] [employer] Work Phone: ABO group Nom (Bld) [facility] [address] [employer] Work Phone: Blood group antibody screen Ql Canceled [place] [address] [employer] Work Phone: Blood group antibody screen Ql Negative [facility] [employer] [facility] [place] Work Phone: Rh immune globulin screen (Bld) [Interp] Canceled [employer] Work Phone: Rh immune globulin screen (Bld) [Interp] Positive [facility] Work Phone: Laboratory - Hematology and Cell countson 09-07-2021 Erythrocyte distribution width (RBC) [Ratio] 13.3 % See Below [facility] Work Phone: Comment on above: Reference Range: 11. 5 - 14.5 Hematocrit (Bld) [Volume fraction] 39.3 % See Below [facility] Work Phone: Comment on above: Reference Range: 36. 0 - 46.0 Hemoglobin (Bld) [Mass/Vol] 13.3 g/dL See Below [facility] Work Phone: Comment on above: Reference Range: 12. 0 - 16.0 MCHC (RBC) [Mass/Vol] 33.9 g/dL See Below [facility] Work Phone: Comment on above: Reference Range: 32. 0 - 36.0 MCV (RBC) [Entitic vol] 92 fL 80 - 100 [facility] [employer] Work Phone: Platelets (Bld) [#/Vol] 217 10*3/uL 150 - 450 [facility] [employer] Work Phone: RBC (Bld) [#/Vol] 4.27 {x10E12/L} See Below [facility] Work Phone: Comment on above: Reference Range: 4.0 0 - 5.20 WBC (Bld) [#/Vol] 5.1 10*3/uL 4.4 - 11.3 [facility] [employer] Work Phone: TYPE + SCREENon 09-07-2021 ABO TYPE O Normal [facility] Comment on above: Performed By: #### T +S #### [facility] [address] [place] [address] RH TYPE Positive Normal [facility] Comment on above: Performed By: #### T +S #### [id number] [place] [address] ABO TYPE Canceled Normal [facility] Comment on above: Order Comment: TEST TYPE + SCREEN WAS CANCELLED, 09/07/2021 10:11 X. Performed By: #### T +S ####[id number] [place] [address] RH TYPE Canceled Normal [facility] Comment on above: Order Comment: TEST TYPE + SCREEN WAS CANCELLED, 09/07/2021 10:11 X. 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), center location, insurance information Prep Instructions Reviewedyes Instructed to Have No Fluids Aftermidnight How to be Addressedkatie Spoken Language PreferredEnglish Source of Informationpatient Stated Reason for Admissionablation of uterus Primary Contact Name and Numberself Other Contact Names and Numbersouse [place] [phone] Limitations on Visitors/Phone Callsnone Medications Brought to Hospitalno General Health: Weight in kg74.9 kilogram(s) Weight in mgo621.1 pound(s) Weight Methodstated Scale Typestanding Height in feet5 feet Height in inches5.94 inch(es) Height in cm167.4 centimeter(s) Height Methodstated BMI (kg/m2)26.728 square meter Patient or Family Member Reaction to Anesthesiano previous family member reaction; patient reaction Patient Reaction to Anesthesianausea and vomiting Blood Avoidance/Restrictionsnon e Previous Transfusion Reactionnot applicable Health Mgmt: Symptoms/Conditions Managed at Homegastrointestinal; behavioral health Are You no Are You Currently Breastfeedingno Behavioral Health Symptoms/Conditionsdepres arlene Gastrointestinal Symptoms/Conditionsreflux /heartburn Barriers to Managing Healthnone Relationship/Environ: Lives Withspouse Living Arrangementshouse Resource/Environmental Concernsnone [place]ticipated [place] Anticipated at Transitionnone Tobacco Use: Tobacco Useno Pre-op Checklist: Arrival [id number] Arrival Time09:18 Procedure Typehysteroscopy with endometrial ablation NPOyes Last Food [id number] 22:00 Last Clear Fluid [id number] 22:00 ID Band On Patientpatient ID (name), allergy Consent Signedyes H&P Completeyes, verified with consent EKG Performednot ordered Chest X-Ray Performednot ordered Preop Antibioticsnot ordered Beta-michael Commentn/a COVID 19 Results in Last 7 daysneg 7/5 Glucose Resultn/a Type and Screen Resultedn/a HCG Urine TestComplete neg 7/5 Chlorhexadine Bath Givennot applicable Nasal Antiseptic Appliednot applicable Soap and Water Bath the Night Before Surgeryyes Hair Washed with Shampoonot applicable Bowel Prepno Surgical Site Infection Preventionyes Pain Scales and Managementyes Additional Information: Information Review: Allergies, Home Meds and Significant Events have been Reviewed and Verified with Patient/Familyyes Allergy, Intolerance, Adverse Event: Allergies: No Known Allergies: Active Problem List: Medical History: Anxiety and depression: Catalog Name: Anxiety disorder, unspecified Surg History: History of tonsillectomy: Catalog Name: Acquired absence of other organs Hughes teeth extracted: Catalog Name: Partial loss of teeth, unspecified cause, unspecified class Skin cyst: Catalog Name: Follicular cyst of the skin and subcutaneous tissue, unspecified History of dilation and curettage: Catalog Name: Other specified postprocedural states History of exploratory laparotomy: Catalog Name: Other specified postprocedural states History of 2 sections: Catalog Name: History of uterine scar from previous surgery Electronic Signatures: Viridiana Pitt) (Signed 09-Sep-2021 09:37) Authored: Initial Info, General Health, Health Mgmt, Relationship/Environ, Pre-op Checklist, Additional Information [place]) (Signed 02-Sep-2021 10:35) Authored: Initial Info, General Health, Tobacco Use, Additional Information Last Updated: 09-Sep-2021 09:37 by Viridiana Pitt (RN) Normal [facility] CBC AND DIFFERENTIALon 08-27 DIFFERENTIAL SEE MANUAL DIFF Normal [facility] Comment on above: Performed By: #### C BCDF #### [address] [address] Erythrocyte distribution width (RBC) [Ratio] 12.7 % Normal 11.5 - 14.[address] [facility] Comment on above: Performed By: #### C BCDF #### [address] [address] Hematocrit (Bld) [Volume fraction] 36.2 % Normal 36.0 - 46.[address] [facility] Comment on above: Performed By: #### C BCDF #### [address] [address] Hemoglobin (Bld) [Mass/Vol] 12.4 g/dL Normal 12.0 - 16.[address] [facility] Comment on above: Performed By: #### C BCDF #### [address] [address] MCHC (RBC) [Mass/Vol] 34.3 g/dL Normal 32.0 - 36.[address] [facility] Comment on above: Performed By: #### C BCDF #### [address] [address] MCV (RBC) [Entitic vol] 92 fL Normal 80 - [address] [facility] Comment on above: Performed By: #### C BCDF #### [address] [address] Platelets (Bld) [#/Vol] 236 10*3/uL Normal 150 - [address] [facility] Comment on above: Performed By: #### C BCDF #### [address] [address] RBC 3.93 x10E12/L Low 4.00 - 5.[address] [facility] Comment on above: Performed By: #### C BCDF #### [address] [address] WBC (Bld) [#/Vol] 6.0 10*3/uL Normal 4.4 - 11.3 [facility] Comment on above: Performed By: #### C BCDF #### [address] [address] COMPREHENSIVE PANELon 2021 Albumin [Mass/Vol] 4.1 g/dL Normal 3.4 - 5.0 [facility] Comment on above: Performed By: #### C MP ####[address] [address] ALP [Catalytic activity/Vol] 56 U/L Normal 33 - [address] [facility] Comment on above: Performed By: #### C MP ####[address] [address] ALT [Catalytic activity/Vol] 9 U/L Normal 7 - [address] [facility] Comment on above: Result Comment: Gabby ents treated with Sulfasalazine may generate falsely decreased results for ALT. Performed By: #### C MP ####[address] [address] Anion gap [Moles/Vol] 9 mmol/L Low 10 - [address] [facility] Comment on above: Performed By: #### C MP ####[address] [address] AST [Catalytic activity/Vol] 9 U/L Normal 9 - [address] [facility] Comment on above: Performed By: #### C MP ####[address] [address] Bilirubin [Mass/Vol] 0.4 mg/dL Normal 0.0 - 1.2 [facility] Comment on above: Performed By: #### C MP ####[address] [address] Calcium [Mass/Vol] 9.0 mg/dL Normal 8.6 - 10.3 [facility] Comment on above: Performed By: #### C MP ####[address] [address] Chloride [Moles/Vol] 105 mmol/L Normal 98 - 107 [facility] Comment on above: Performed By: #### C MP ####[address] [address] Creatinine [Mass/Vol] 0.76 mg/dL Normal 0.50 - 1.[address] [facility] Comment on above: Performed By: #### C MP ####[address] [address] eGFR FEMALE >90 Normal >[address] [facility] Comment on above: Result Comment: CALC ULATIONS OF ESTIMATED GFR ARE PERFORMED USING THE 2020 CKD-EPI STUDY REFIT EQUATION WITHOUT THE RACE VARIABLE FOR THE IDMS-TRACEABLE CREATININE METHODS. https://jasn.asnjournals.org/content/early/ASN.5823523 988 Performed By: #### C MP ####[address] [address] Glucose [Mass/Vol] 109 mg/dL High 74 - 99 [facility] Comment on above: Performed By: #### C MP ####[address] [address] HCO3 (Bld) [Moles/Vol] 29 mmol/L Normal 21 - [address] [facility] Comment on above: Performed By: #### C MP ####[address] [address] Potassium [Moles/Vol] 3.9 mmol/L Normal 3.5 - 5.[address] [facility] Comment on above: Performed By: #### C MP ####[address] [address] Protein [Mass/Vol] 6.5 g/dL Normal 6.4 - 8.2 [facility] Comment on above: Performed By: #### C MP ####[address] [address] Sodium [Moles/Vol] 139 mmol/L Normal 136 - 145 [facility] Comment on above: Performed By: #### C MP ####[address] [address] Urea nitrogen [Mass/Vol] 15 mg/dL Normal 6 - [address] [facility] Comment on above: Performed By: #### C ####[address] [place] [address] Complete Blood Count + Diffe rentialon 08-27-2021 Erythrocyte distribution width (RBC) [Ratio] 12.7 % See Below [employer] Work Phone: [phone] Comment on above: Reference Range: 11. 5 - 14.5 Hematocrit (Bld) [Volume fraction] 36.2 % See Below [employer] Work Phone: Comment on above: Reference Range: 36. 0 - 46.0 Hemoglobin (Bld) [Mass/Vol] 12.4 g/dL See Below [employer] Work Phone: Comment on above: Reference Range: 12. 0 - 16.0 MCHC (RBC) [Mass/Vol] 34.3 g/dL See Below [employer] Work Phone: Comment on above: Reference Range: 32. 0 - 36.0 MCV (RBC) [Entitic vol] 92 fL 80 - 100 [employer] Work Phone: [phone] Platelets (Bld) [#/Vol] 236 10*3/uL 150 - 450 [facility] Work Phone: [phone] RBC (Bld) [#/Vol] 3.93 {x10E12/L} below low threshold See Below [employer] Work Phone: Comment on above: Reference Range: 4.0 0 - 5.20 WBC (Bld) [#/Vol] 6.0 10*3/uL 4.4 - 11.3 [facility] Work Phone: [phone] Complete Blood Count + Differential SEE MANUAL DIFF [facility] Work Phone: LACTATEon 08-27-2021 Lactate [Moles/Vol] 0.9 mmol/L Normal 0.4 - 2.0 [facility] Comment on above: Result Comment: Sangeetha puncture immediately after or during the administration of Metamizole may lead to falsely low results. Testing should be performed immediately prior to Metamizole dosing. Performed By: #### L ACT ####[facility] [place] [address] Laboratory - Chemistry and C hemistry - challengeon 08-27-2021 Albumin BCP dye [Mass/Vol] 4.1 g/dL 3.4 - 5.0 [facility] Work Phone: ALP [Catalytic activity/Vol] 56 U/L 33 - 110 [facility] Work Phone: ALT With P-5'-P [Catalytic activity/Vol] 9 U/L 7 - 45 [facility] Work Phone: Comment on above: Patients treated wit h Sulfasalazine may generate falsely decreased results for ALT. Anion gap [Moles/Vol] 9 mmol/L below low threshold 10 - 20 [facility] Work Phone: [phone] AST With P-5'-P [Catalytic activity/Vol] 9 U/L 9 - 39 [facility] Work Phone: Bilirubin [Mass/Vol] 0.4 mg/dL 0.0 - 1.2 [facility] [employer] Work Phone: Calcium [Mass/Vol] 9.0 mg/dL 8.6 - 10.3 [facility] [employer] Work Phone: [phone] Chloride [Moles/Vol] 105 mmol/L 98 - 107 [facility] Work Phone: [phone] CO2 [Moles/Vol] 29 mmol/L 21 - 32 [facility] [employer] Work Phone: Creatinine [Mass/Vol] 0.76 mg/dL See Below [facility] Work Phone: Comment on above: Reference Range: 0.5 0 - 1.05 Glucose [Mass/Vol] 109 mg/dL above high threshold 74 - 99 [employer] Work Phone: Potassium [Moles/Vol] 3.9 mmol/L 3.5 - 5.3 [employer] Work Phone: Protein [Mass/Vol] 6.5 g/dL 6.4 - 8.2 [facility] [employer] Work Phone: Sodium [Moles/Vol] 139 mmol/L 136 - 145 [facility] [employer] Work Phone: Urea nitrogen [Mass/Vol] 15 mg/dL 6 - 23 [employer] Work Phone: Laboratory - Hematology and Cell countson 08-27-2021 Band form neutrophils/100 WBC (Bld) 1.0 % 0.0 - 5.0 [employer] Work Phone: Basophils/100 WBC (Bld) 1.0 % 0.0 - 2.0 [employer] Work Phone: Lymphocytes/100 WBC (Bld) 29.0 % See Below [employer] Work Phone: Comment on above: Reference Range: 13. 0 - 44.0 Monocytes/100 WBC (Bld) 2.0 % 2.0 - 10.0 [employer] Work Phone: Lactate, Levelon 08-27-2021 Lactate [Moles/Vol] 0.9 mmol/L 0.4 - 2.0 [employer] Work Phone: Comment on above: Venipuncture immedia tely after or during the administration of Metamizole may lead to falsely low results. Testing should be performed immediately prior to Metamizole dosing. MANUAL DIFFERENTIALon 2021 ANC 4.08 x10E9/L Normal 1.20 - 7.[address] [facility] Comment on above: Performed By: #### M DIFF #### [address] [address] BAND NEUTROPHIL 0.06 x10E9/L Normal 0.00 - 0.70 [facility] Comment on above: Performed By: #### M DIFF #### [address] [address] BASOPHIL 0.06 x10E9/L Normal 0.00 - 0.[address] [facility] Comment on above: Performed By: #### M DIFF #### [address] [address] EOSINOPHIL 0.00 x10E9/L Normal 0.00 - 0.[address] [facility] Comment on above: Performed By: #### M DIFF #### [address] [address] LYMPHOCYTE 1.74 x10E9/L Normal 1.20 - 4.[address] [facility] Comment on above: Performed By: #### M DIFF #### [address] [address] MONOCYTE 0.12 x10E9/L Normal 0.10 - 1.[address] [facility] Comment on above: Performed By: #### M DIFF #### [address] [address] SEG NEUTROPHIL 4.02 x10E9/L Normal 1.20 - 7.00 [facility] Comment on above: Performed By: #### M DIFF #### [address] [address] % BAND NEUTROPHIL 1.0 % Normal 0.0 - 5.0 [facility] Comment on above: Performed By: #### M DIFF #### [address] [address] % BASOPHIL 1.0 % Normal 0.0 - 2.[address] [facility] Comment on above: Performed By: #### M DIFF #### [address] [address] % EOSINOPHIL 0.0 % Normal 0.0 - 6.[address] [facility] Comment on above: Performed By: #### M DIFF #### [address] [address] % LYMPHOCYTE 29.0 % Normal 13.0 - 44.[address] [facility] Comment on above: Performed By: #### M DIFF #### [address] [address] % MONOCYTE 2.0 % Normal 2.0 - 10.[address] [facility] Comment on above: Performed By: #### M DIFF #### [address] [address] % SEG NEUTROPHIL 67.0 % Normal 40.0 - 80.0 [facility] Comment on above: Result Comment: Perc ent differential counts (%) should be interpreted in the context of the absolute cell counts (cells/L). Performed By: #### M DIFF #### [address] [address] No Panel Informationon 08-27 0.06 {x10E9/L} See Below [employer] Work Phone: Comment on above: Reference Range: 0.0 0 - 0.10 Reference Range: 0.0 0 - 0.70 0.00 {x10E9/L} See Below [employer] Work Phone: Comment on above: Reference Range: 0.0 0 - 0.70 0.12 {x10E9/L} See Below [employer] Work Phone: Comment on above: Reference Range: 0.1 0 - 1.00 1.74 {x10E9/L} See Below [employer] Work Phone: Comment on above: Reference Range: 1.2 0 - 4.80 4.02 {x10E9/L} See Below [employer] Work Phone: Comment on above: Reference Range: 1.2 0 - 7.00 4.08 {x10E9/L} See Below [employer] Work Phone: Comment on above: Reference Range: 1.2 0 - 7.70 0.0 % 0.0 - 6.0 [employer] Work Phone: [phone] % See Below [employer] Work Phone: Comment on above: Reference Range: 40. 0 - 80.0 Percent differential counts (%) should be interpreted in the context of the absolute cell counts (cells/L). NORMAL [employer] Work Phone: >90 >90 [employer] Work Phone: Comment on above: CALCULATIONS OF ALLIE MATED GFR ARE PERFORMED USING THE 2020 CKD-EPI STUDY REFIT EQUATION WITHOUT THE RACE VARIABLE FOR THE IDMS-TRACEABLE CREATININE METHODS.https://jasn.asnjournals.org/content/early/ASN .9560326734 Provider Note - ED v3on 06- Provider Note - ED v3 Provider Note: Chart Review: ED NOTES ED NOTES: 36-year-old female presents with erythema of right second toe. Patient hit it on a baby gate a week ago and sustained a superficial abrasion to the dorsum of the toe. Patient was seen today in urgent care where a prescription of Bactrim was written. The provider there said if the redness on the dorsum of the foot travels she is to be reevaluated. Patient on exam has superficial thrombophlebitis of the right lower extremity. Patient denies any new injuries to the area. I went over all the findings with the patient. We will add Keflex to her present regimen along with Motrin 800 twice daily. Patient instructed to elevate the leg and follow-up with family medical doctor and if symptoms worsen return to ED. HISTORY OF PRESENTING ILLNESS BASILIA is a 36 year old Female and was seen by me at 27-Aug-2021 13:21 for a chief complaint of wound check (Amb to ED with c/o small scab to R 2nd toe where she had an abrasion from a baby gate last weekend. She reports that she was stepping over the gate and hit her R 2nd toe on it. She saw Urgent Care today because there was some redness to the toe and spreading down her foot. She reports that they gave her an injection and started her on Bactrim, but advised her to come to ER if redness started to spread.)(1). The historian is the patient. Triage Information: Most recent Vital Sign Value Date Temp (F): 99.8 08-27-2021 13:17 Temp (C): 37.6 08-27-2021 13:17 Heart Rate (beats/min): 76 08-27-2021 13:17 Respirations (breaths/min): 16 08-27-2021 13:17 SpO2 (%): 99 08-27-2021 13:17 BP Systolic (mm Hg): 121 08-27-2021 13:17 BP Diastolic (mm Hg): 75 08-27-2021 13:17 PAST MEDICAL HISTORY ALLERGIES/INTOLERANCES: No Known Allergies HEALTH HISTORY: No documented data. OUTPATIENT MEDICATIONS: Home Medications Review Status for Reconciliation: N/A Med Status: Patient Currently Takes Medications Drug Name: Multivitamins oral tablet (obsolete) Instructions: 1 tab(s) orally once a day (at bedtime) Drug Name: ibuprofen 600 mg oral tablet Instructions: 1 tab(s) orally every 6 hours Drug Name: sertraline 50 mg oral tablet Instructions: 1 tab(s) orally once a day Drug Name: Bactrim DS 800 mg-160 mg oral tablet Instructions: 1 tab(s) orally 2 times a day SIGNIFICANT EVENTS: Immunizations Description:Tdap Description:.Influenza- Influenza Virus Description:Tdap Past Medical History Description:pt denies Past Surgical History Description: Section x 1 Description:Tonsillectomy Description:ovarain cyst ruptured REVIEW OF SYSTEMS INTEGUMENTARY: ( Erythema to the dorsum of the Right second toe with some superficial erythema originating from the anterior aspect of the ankle.) POSITIVE for: abrasions; All other systems reviewed and are negative PHYSICAL EXAM Image Comments: Physical ydjephsgxca-ascrezumijk-o ight foot has erythema with a superficial abrasion to the dorsum of the second toe. The erythema originates at the base of the toe and travels cephalad on the anterior aspect of the foot ankle and calf. Neurovascular is intact. Rest of physical exam is unremarkable. CRITICAL CARE RESULTS: Recent Lab Results: I have reviewed these laboratory results: Complete Blood Count + Differential 27-Aug-2021 13:45:00 ResultValue White Blood Cell Count 6.0 Red Blood Cell Count 3.93 L HGB 12.4 HCT 36.2 MCV 92 MCHC 34.3 PLT 236 RDW-CV 12.7 Differential Comment SEE MANUAL DIFF Comprehensive Metabolic Panel 27-Aug-2021 13:45:00 ResultValue Glucose, Serum 109 H NA 139 K 3.9 CL 105 Bicarbonate, Serum 29 Anion Gap, Serum 9 L BUN 15 CREAT 0.76 GFR Female >90 Calcium, Serum 9.0 ALB 4.1 ALKP 56 T Pro 6.5 T Bili 0.4 Alanine Aminotransferase, Serum 9 Aspartate Transaminase, Serum 9 RBC Morphology 27-Aug-2021 13:45:00 ResultValue Red Blood Cell Morphology NORMAL Manual Differential Panel 27-Aug-2021 13:45:00 ResultValue % Seg Neutrophil 67.0 % Band Neutrophil 1.0 % Lymphocyte 29.0 % Monocyte 2.0 % Eosinophil 0.0 % Basophil 1.0 Absolute Neutrophil Count (ANC) 4.08 Seg Neutrophil Count 4.02 Band Neutrophil Count 0.06 Lymphocyte, Count 1.74 Monocyte, Count 0.12 Eosinophil, Count 0.00 Basophil, Count 0.06 Lactate, Level 27-Aug-2021 13:45:00 ResultValue Lactate, Level 0.9 VITAL SIGNS: T PRBP SpO2O2(LPM) %FiO2 Method 27-Aug-2021 13:17:[id number]/75 99 room air, no respiratory support 27-Aug-2021 13:10:[id number]/75 99 room air, no respiratory support DISPOSITION Diagnosis/Annotation: ED Dx Name:Thrombophlebitis leg superficial Code:I80.00 Disposition: discharged Type: home CONSULT Comments/Additional Findings: 1 medication as prescribed 2 follow-up with family medical doctor 1 to 2 days, if sym (more content not included)... Normal [facility] Provider Note - ED v3 Provider Note: Chart Review: ED NOTES ED NOTES: Patient presents for evaluation of an abrasion to right middle toe with surrounding redness and slight streaking up foot. Pt states she hit foot on baby gate a few days ago. Denies fever, n/v/d, body aches, fatigue, chest pains, SOB or any other associated constitutional symptom or complaint. No otc meds used for symptoms. HISTORY OF PRESENTING ILLNESS BASILIA is a 36 year old Female and was seen by me at 27-Aug-2021 10:04. Triage Information: Most recent Vital Sign Value Date PAST MEDICAL HISTORY ALLERGIES/INTOLERANCES: No Known Allergies HEALTH HISTORY: No documented data. OUTPATIENT MEDICATIONS: Home Medications Review Status for Reconciliation: Complete Med Status: Patient Currently Takes Medications Drug Name: Multivitamins oral tablet (obsolete) Instructions: 1 tab(s) orally once a day (at bedtime) Drug Name: ibuprofen 600 mg oral tablet Instructions: 1 tab(s) orally every 6 hours Drug Name: sertraline 50 mg oral tablet Instructions: 1 tab(s) orally once a day Drug Name: Bactrim DS 800 mg-160 mg oral tablet Instructions: 1 tab(s) orally 2 times a day SIGNIFICANT EVENTS: Immunizations Description:Tdap Description:.Influenza- Influenza Virus Description:Tdap Past Medical History Description:pt denies Past Surgical History Description: Section x 1 Description:Tonsillectomy Description:ovarain cyst ruptured SCIENTIFIC PROGRAMMER: Is : no Is : no REVIEW OF SYSTEMS All other systems reviewed and are negative REVIEW OF SYSTEMS: Comments See HPI PHYSICAL EXAM CONSTITUTIONAL: Well appearing, well nourished, awake, alert, oriented to person, place, time/situation and in no apparent distress. NEUROLOGICAL: Alert and oriented, no focal deficits, no motor or sensory deficits. SKIN: Skin normal color for race, warm, dry and intact except for abrasion to right middle toe with surrounding erythema and slight streaking up foot 2 inch, area traced with marker. PSYCHIATRIC: Alert and oriented to person, place, time/situation. normal mood and affect. No apparent risk to self or others. CRITICAL CARE VITAL SIGNS: T PRBP SpO2O2(LPM) %FiO2 Method 27-Aug-2021 09:57:[id number] 97 MDM MDM/ED COURSE: Discussed Findings with: patient Data Reviewed: vital signs Treatment Plan: Rx Bactrim DS. 1g IM Rocephin given in office, pt tolerated well and was discharged 15 min post injection in stable condition. Area of redness traced with marker and advised pt if symptoms worsen to go to ED. Patient's clinical presentation is otherwise unremarkable at this time. Patient is discharged with instructions to follow-up with primary care or seek emergency medical attention for worsening symptoms or any new concerns. DISPOSITION Diagnosis/Annotation: ED Dx Name:Cellulitis of middle toe, unspecified laterality Code:L03.039 Disposition: discharged Type: home CONSULT CRITICAL CARE TIME Is this a critically ill patient: no Electronic Signatures: Jacob Titus (PREPAROLE COUNSELING AIDE-HOME CARE LIAISON) (Signed 27-Aug-2021 10:13) Authored: ED Notes, HPI, PMH, ROS, PE, Results/Vital Signs, MDM/ED Course, Clinical Impression, Attestation, Chart Review, Scores Last Updated: 27-Aug-2021 10:13 by Jacob Titus (PREPAROLE COUNSELING AIDE-HOME CARE LIAISON) Normal [facility] RED CELL MORPHOLOGYon 2021 RBC morphology finding Nom (Bld) NORMAL Normal [facility] Comment on above: Performed By: #### M ORP2 #### [place] [address] Triage - EDon 08-27-2021 Triage - ED Quick Triage: Are You no Have You Given In The Last 6 Weeksno Are You Currently Breastfeedingno The patient and/or guardian verbally acknowledges placement for services into the following (when Urgent Care Service hours are operating):emergency department Chart Review: ARRIVAL INFORMATION Mode of Arrival: private vehicle CHIEF COMPLAINT BASILIA CORONADO is a Female patient with a chief complaint of wound check (Amb to ED with c/o small scab to R 2nd toe where she had an abrasion from a baby gate last weekend. She reports that she was stepping over the gate and hit her R 2nd toe on it. She saw Urgent Care today because there was some redness to the toe and spreading down her foot. She reports that they gave her an injection and started her on Bactrim, but advised her to come to ER if redness started to spread.). Triage Date/Time: 27-Aug-2021 13:10 TANIA: 3 Pain Rating (0-10): 3 = Mild Pain location: R 2nd toe Vital Signs: Temperature: 99.8F ( 37.6C) taken temporal Blood Pressure: 121/75 Mean: Heart Rate: 76 Respiratory Rate: 16 Pulse Oximetry: 99% on room air, no respiratory support. Weight: 163.1 pounds. Calculated 74.0 kg. Grimes Coma Scale: Best Eye Response: (E4) spontaneous Best Motor Response: (M6) obeys commands Best Verbal Response: (V5) oriented Wm Score: 15 Cough lasting greater than 3 weeks: no Allergies: no Mask applied: yes Last menstrual period: unknown Patient has homicidal thoughts: no Symptom Notes: . Symptoms Are POSITIVE For: pain (describe) and redness. Risk Screens Suicide Risk Screen In the Past Month: Have you wished you were or wished you could go to sleep and not wake up no In the Past Month: Have you had any actual thoughts of killing yourself no In Your Lifetime: Have you ever done anything, started to do anything, or prepared to do anything to end your life no Thompson Fall Scale Screening Has the patient fallen before (or is the patient in the ED as a result of a fall) has not had a fall Does the patient have an impaired gait does not have impaired gait Is the patient cognitively impaired not cognitively impaired Interventions: Thompson Fall Interventions: LOW INTERVENTIONS: *patient oriented to surroundings and call system, * patient/family falls education completed and documented, *patients fall status communicated during bedside handoff, *whiteboard updated, *mode of toileting discussed with patient, *bed in low position with brakes locked, *call light in reach, * non-skid footwear TRAVEL HISTORY Travel History Coronavirus Screening: no exposure or symptoms(1) Travel Exposure History: NO travel to International locations in the past 30 days PAIN Pain Scale Used: KAREN Pain Rating (0-10): 3 = Mild Past Medical History: Past Medical History Reviewedyes Electronic Signatures: Fanny Gilbert (MARYJANE) (Signed 27-Aug-2021 13:24) Entered: Risk Screens, Pain, Travel History, Chart Review, Scores, Past Medical History Authored: Quick Triage, Risk Screens, Pain, Travel History, Chart Review, Scores, Past Medical History Last Updated: 27-Aug-2021 13:24 by Fanny Gilbert (MARYJANE) References: 1. Data Referenced From Intake Note - Urgent Care 27-Aug-2021 09:[address] [facility] LMPon 08-17-2021 Last menstrual period start date 17Aug2021 [facility] [address] Work Phone: SCIENTIFIC PROGRAMMER - Office Visiton 08-04 SCIENTIFIC PROGRAMMER - Office Visit Diagnoses/Problems Assessed Abnormal uterine bleeding (AUB) (626.9) (N93.9) Orders Start: medroxyPROGESTERone Acetate 5 MG Oral Tablet; Take 1 tablet daily Follow-up visit in 1 month Outpatient Follow-up Status: Hold For - Scheduling Requested for: 17Aug2021 Provider Impressions 1)AUB-reviewed endometrial biopsy overall benign. Patient been worked up and review management options for abnormal uterine bleeding. Patient interested in hormone management at this time given previous experience. Patient is counseled endometrial elation. Risk benefits alternatives discussed. Consent was obtained. Reviewed risk of failure. All questions answered. Reviewed risk of COVID. Risks, benefits and alternatives discussed with patient prior to procedure. Risk of bleeding, infection, damage to surround organs was discussed. Discussion included risk of bowel injury requiring bowel surgery/resection as well as the risk bladder damage resulting in further surgery or shannon catheter. We briefly discussed the risk of hysterectomy. Discussed risks of blood transfusion including infectious etiologies and transfusions reactions. Patient is okay for blood transfusions. Discussed risk of anesthesia including risk of stroke, cardiac arrest and/or . Discussed management of pain during the preop and post op time periods. All questions were answered. Consent was signed. CBC type and screen test ordered Chief Complaint PT IS HERE TODAY FOR EMB RESULTS AND PRE OP APT. HAS NO NEW CONCERNS. LMP: 08/17/2021 History of Present [id number] presents for follow-up after endometrial biopsy for surgical scheduling. Patient is no acute concerns Review of Systems Constitutional: No fevers, chills Eye:no vision changes Respiratory: no SOB Cardiovascular: no chest pain Gastrointestinal: No nausea, vomiting, diarrhea, constipation, abdominal pain Genitourinary:no dysuria Gynecology: See HPI Active Problems Problems Abnormal uterine bleeding (AUB) (626.9) (N93.9) control counseling (V25.09) (Z30.09) BMI 27.0-27.9,adult (V85.23) (Z68.27) Depression, major, single episode, moderate (296.22) (F32.1) Encounter for immunization (V03.89) (Z23) Encounter for preventative adult health care examination (V70.0) (Z00.00) GERD (gastroesophageal reflux disease) (530.81) (K21.9) Heart palpitations (785.1) (R00.2) Herpes simplex type 2 infection (054.9) (B00.9) Mild depression (648.44,311) (F53.0) Negative test (V72.41) (Z32.02) OAB (overactive bladder) (596.51) (N32.81) Overweight (BMI 25.0-29.9) (278.02) (E66.3) Screen for STD (sexually transmitted disease) (V74.5) (Z11.3) Screening for breast cancer (V76.10) (Z12.39) Screening for cervical cancer (V76.2) (Z12.4) Wart of hand (078.10) (B07.9) Women's annual routine gynecological examination (V72.31) (Z01.419) Past Medical History Problems History of (V13.29) 09/2014-SPONTANEOUS 09/12/2015-39 WEEKS, , MALE, #8 5oz History of Menarche (V21.8) ONSET AGE 11 History of Pap test, as part of routine gynecological examination (V76.2) (Z01.419) 01/13/2017; NIL Surgical History Problems History of Ankle surgery History of section 02/06/2020 History of Dilation and curettage 03/11/2019 History of Oral surgery History of Ovarian cystectomy 09/15/2014 History of Tonsillectomy 10/31/2017 Family History Mother Family history of hypertension (V17.49) (Z82.49) Father Family history of colitis (V18.59) (Z83.79) Brother Family history of hypertension (V17.49) (Z82.49) Family history of type 2 diabetes mellitus (V18.0) (Z83.3) Grandparent Family history of diabetes mellitus (V18.0) (Z83.3) Family history of hypertension (V17.49) (Z82.49) Family history of malignant neoplasm (V16.9) (Z80.9) Social History Problems Alcohol use (V49.89) (Z72.89) WINE, 1-2 TIMES PER MONTH Former smoker (V15.82) (Z87.891) No illicit drug use Patient has living will (V49.89) (Z78.9) Sexually active Allergies Medication No Known Drug Allergies Recorded By: Noemy Gambino; 01/21/2019 4:19:43 PM Current Meds Medication NameInstruction Apple Cider Vinegar CAPS Ashwagandha 500 MG Oral Capsule B-12 2500 MCG Oral Tablet B-6 100 MG Oral Tablet Multi-Vitamins TABS Probiotic CAPS Sertraline HCl - 50 MG Oral TabletTake 1 tablet daily Stress ReLeaf CAPS Zinc 50 MG CAPS Vitals Vital Signs Recorded: 17Aug2021 02:55PM Ufejwzyk530 Pakscuchy17 Height5 ft 6 in Opimpk388 lb 8.96 oz BMI Kqifrgftjm31.72 kg/m2 BSA Calculated1.85 [id number] Physical Exam General: None acute distress Eye: Intraocular movements are intact HEENT: Normocephalic Cardiovascular: Regular rate Respiratory: Respirations are nonlabored Gastrointestinal: Nondistended Musculoskeletal: Normal range of motion Neurologic: Alert and oriented x3 Psychiatric: Cooperative appropriate mood and af (more content not included)... Normal [facility] IO HCG, Urine Test on 08-03-2021 HCG ( test) Ql (U) Negative [employer] Work Phone: LMPon 08-03-2021 Last menstrual period start date 22Jul2021 [employer] Work Phone: No Panel Informationon 08-03 [employer] Work Phone: SCIENTIFIC PROGRAMMER - Procedure Visiton 0 08-03-2021 SCIENTIFIC PROGRAMMER - Procedure Visit Diagnoses/Problems Abnormal uterine bleeding (AUB) (626.9) (N93.9) Negative test (V72.41) (Z32.02) Orders Abnormal uterine bleeding (AUB) Surgical Pathology; Status:In Progress - Specimen/Data Collected,Retrospective Authorization; Done: 03Aug2021 Type : Biopsy Fixative : Formalin Site A : ENDOMETRIAL BIOPSY Negative test IO HCG, Urine Test; Status:Resulted - Requires Verification,Retrospectiv e Authorization; Done: 03Aug2021 03:32PM Provider Impressions 1)AUB-endometrial biopsy obtained today. Patient tolerated procedure well. Pathology reviewed in 2 weeks. Discussed surgical scheduling for likely DANDC ablation. Discussed treatment with progesterone for 2 weeks. All questions answered Chief Complaint PT IS HERE TODAY FOR AN EMB. HAS NO NEW CONCERNS. LMP: 07/22/2021 History of Present [id number]-spcd presents for endometrial biopsy. Patient is no acute concerns. Review of Systems Constitutional: No fevers, chills Eye:no vision changes Respiratory: no SOB Cardiovascular: no chest pain Gastrointestinal: No nausea, vomiting, diarrhea, constipation, abdominal pain Genitourinary:no dysuria Gynecology: See HPI Active Problems Problems Abnormal uterine bleeding (AUB) (626.9) (N93.9) control counseling (V25.09) (Z30.09) BMI 27.0-27.9,adult (V85.23) (Z68.27) Depression, major, single episode, moderate (296.22) (F32.1) Encounter for immunization (V03.89) (Z23) Encounter for preventative adult health care examination (V70.0) (Z00.00) GERD (gastroesophageal reflux disease) (530.81) (K21.9) Heart palpitations (785.1) (R00.2) Herpes simplex type 2 infection (054.9) (B00.9) Mild depression (648.44,311) (F53.0) OAB (overactive bladder) (596.51) (N32.81) Overweight (BMI 25.0-29.9) (278.02) (E66.3) Screen for STD (sexually transmitted disease) (V74.5) (Z11.3) Screening for breast cancer (V76.10) (Z12.39) Screening for cervical cancer (V76.2) (Z12.4) Wart of hand (078.10) (B07.9) Women's annual routine gynecological examination (V72.31) (Z01.419) Past Medical History Problems History of (V13.29) 09/2014-SPONTANEOUS 09/12/2015-39 WEEKS, , MALE, #8 5oz History of Menarche (V21.8) ONSET AGE 11 History of Pap test, as part of routine gynecological examination (V76.2) (Z01.419) 01/13/2017; NIL Surgical History Problems History of Ankle surgery History of section 02/06/2020 History of Dilation and curettage 03/11/2019 History of Oral surgery History of Ovarian cystectomy 09/15/2014 History of Tonsillectomy 10/31/2017 Family History Mother Family history of hypertension (V17.49) (Z82.49) Father Family history of colitis (V18.59) (Z83.79) Brother Family history of hypertension (V17.49) (Z82.49) Family history of type 2 diabetes mellitus (V18.0) (Z83.3) Grandparent Family history of diabetes mellitus (V18.0) (Z83.3) Family history of hypertension (V17.49) (Z82.49) Family history of malignant neoplasm (V16.9) (Z80.9) Social History Problems Alcohol use (V49.89) (Z72.89) WINE, 1-2 TIMES PER MONTH Former smoker (V15.82) (Z87.891) No illicit drug use Patient has living will (V49.89) (Z78.9) Sexually active Allergies Medication No Known Drug Allergies Recorded By: Noemy Gambino; 01/21/2019 4:19:43 PM Current Meds Medication NameInstruction Apple Cider Vinegar CAPS Ashwagandha 500 MG Oral Capsule B-12 2500 MCG Oral Tablet B-6 100 MG Oral Tablet Multi-Vitamins TABS Probiotic CAPS Sertraline HCl - 50 MG Oral TabletTake 1 tablet daily Stress ReLeaf CAPS Zinc 50 MG CAPS Vitals Vital Signs Recorded: 03Aug2021 03:27PM Qxterixk607 Pekfmolyp65 Height5 ft 6 in Puweus678 lb 0.32 oz BMI Zvtsrgeiux74.47 kg/m2 BSA Calculated1.84 [id number] Physical Exam General: None acute distress Eye: Intraocular movements are intact HEENT: Normocephalic Cardiovascular: Regular rate Respiratory: Respirations are nonlabored Gastrointestinal: Nondistended Musculoskeletal: Normal range of motion Neurologic: Alert and oriented x3 Psychiatric: Cooperative appropriate mood and affect. Results/Data IO HCG, Urine [id number] 03:July [place] MEDLINE LOT: [id number] EXP: 11/03/2022 Test NameResultFlagReference IO Urine hCGNegative Procedure Endometrial Biopsy Procedure: Endometrial Biopsy Indication: abnormal uterine bleeding. Risks, benefits and alternatives were discussed with the patient. We discussed possible complications and risks. Written consent was obtained prior to the procedure and is detailed in the patient's record. a test was performed and confirmed negative. Procedure Note: Anesthesia: none. The cervix required no dilation. The uterus was sounded to 8.5 cm. endometrial biopsy was completed using standard technique. An adequate amount of blood and tissue were obtained. Post-Procedu (more content not included)... Normal Touchworks [facility] Surgical Pathology Depar tmenton 08-03-2021 [facility] Surgical Pathology Department Name BASILIA CORONADO Pathologist: RENESTINA BARROW MD Date of Procedure: 08/03/2021 Date Received: 08/04/2021 Date Reported 08/06/2021 Submitting Physician: JULY NIX DO Location: [facility] Other External # FINAL DIAGNOSIS A. ENDOMETRIUM, BIOPSY: -- DISORDERED PROLIFERATIVE ENDOMETRIUM. The gross and/or microscopic findings were reviewed in conjunction with pathology resident, Leon Titus MD. Electronically Signed Out By ERNESTINA BARROW MD/SXR By the signature on this report, the individual or group listed as making the Final Interpretation/Diagnosis certifies that they have reviewed this case. Diagnostic interpretation performed at [place] [address] Clinical History: Fixative (A): FORMALIN Clinical Diagnosis History: Abnormal uterine bleeding (AUB) - (N93.9) Specimens Submitted As: A: ENDOMETRIAL BIOPSY Gross Description: Received in formalin, labeled with the patient's name and hospital number and EMB, are multiple fragments of mucus, blood, and soft tissue, aggregating to 3.4 x 3.2 x 0.7 cm. The specimen is submitted in toto in one cassette. The specimen may not survive processing. RCC rcc/08/04/2021 [facility] Department of Pathology [address] [place] [address] Normal [facility] Comment on above: Performed By: #### U [facility] ####[facility] Surgical Pathology [address] [place] [address] SCIENTIFIC PROGRAMMER - Office Visiton 07-04 SCIENTIFIC PROGRAMMER - Office Visit Diagnoses/Problems Assessed Abnormal uterine bleeding (AUB) (626.9) (N93.9) Orders Follow-up visit in 1 week Outpatient Follow-up Status: Hold For - Scheduling Requested for: [id number] Provider Impressions 1)AUB-reviewed ultrasound results overall benign small cyst does not need further follow-up. CBC is normal TSH is normal. Discussed management options with patient including medical management with hormonal things. Discussed IUD less hormone exposure versus surgical management. Patient was also big thing of the pills really did affect her mental health and that is been a big sticking point for her life and her family recently. Patient very apprehensive about potential doing hormones. Discussed potential IUD again patient really did not want to do that discussed that this would be low-dose alternative. Discussed with her surgical management patient very interested in ablation. Plan to do endometrial biopsy next visit for anticipated [facility] endometrial patient in the near future. All questions answered. Patient voiced understanding. Chief Complaint PT HERE TODAY TO GO OVER RESULTS. PT HAS NO CONCERNS AT THIS TIME. History of Present Nsgjrlt82-bmvf-mwk presents for follow-up and abnormal uterine bleeding. Patient would like to discuss options thinking potentially ablation. Patient was mental health is a big thing for her right now. Patient following getting good place with her family and her significant other with management. Patient very worried about how the hormones affected her mental health and not sure she want to do at this time. Review of Systems Constitutional: No fevers, chills Eye:no vision changes Respiratory: no SOB Cardiovascular: no chest pain Gastrointestinal: No nausea, vomiting, diarrhea, constipation, abdominal pain Genitourinary:no dysuria Gynecology: See HPI Active Problems Problems Abnormal uterine bleeding (AUB) (626.9) (N93.9) control counseling (V25.09) (Z30.09) BMI 27.0-27.9,adult (V85.23) (Z68.27) Depression, major, single episode, moderate (296.22) (F32.1) Encounter for immunization (V03.89) (Z23) Encounter for preventative adult health care examination (V70.0) (Z00.00) GERD (gastroesophageal reflux disease) (530.81) (K21.9) Heart palpitations (785.1) (R00.2) Herpes simplex type 2 infection (054.9) (B00.9) Mild depression (648.44,311) (O99.345,F53.0) OAB (overactive bladder) (596.51) (N32.81) Overweight (BMI 25.0-29.9) (278.02) (E66.3) Screen for STD (sexually transmitted disease) (V74.5) (Z11.3) Screening for breast cancer (V76.10) (Z12.39) Screening for cervical cancer (V76.2) (Z12.4) Wart of hand (078.10) (B07.9) Women's annual routine gynecological examination (V72.31) (Z01.419) Past Medical History Problems History of (V13.29) 09/2014-SPONTANEOUS 09/12/2015-39 WEEKS, , MALE, #8 5oz History of Menarche (V21.8) ONSET AGE 11 History of Pap test, as part of routine gynecological examination (V76.2) (Z01.419) 01/13/2017; NIL Surgical History Problems History of Ankle surgery History of section 02/06/2020 History of Dilation and curettage 03/11/2019 History of Oral surgery History of Ovarian cystectomy 09/15/2014 History of Tonsillectomy 10/31/2017 Family History Mother Family history of hypertension (V17.49) (Z82.49) Father Family history of colitis (V18.59) (Z83.79) Brother Family history of hypertension (V17.49) (Z82.49) Family history of type 2 diabetes mellitus (V18.0) (Z83.3) Grandparent Family history of diabetes mellitus (V18.0) (Z83.3) Family history of hypertension (V17.49) (Z82.49) Family history of malignant neoplasm (V16.9) (Z80.9) Social History Problems Alcohol use (V49.89) (Z72.89) WINE, 1-2 TIMES PER MONTH Former smoker (V15.82) (Z87.891) No illicit drug use Patient has living will (V49.89) (Z78.9) Sexually active Allergies Medication No Known Drug Allergies Recorded By: Noemy Gambino; 01/21/2019 4:19:43 PM Current Meds Medication NameInstruction Apple Cider Vinegar CAPS Ashwagandha 500 MG Oral Capsule B-12 2500 MCG Oral Tablet B-6 100 MG Oral Tablet Multi-Vitamins TABS Probiotic CAPS Sertraline HCl - 50 MG Oral TabletTake 1 tablet daily Stress ReLeaf CAPS Zinc 50 MG CAPS Vitals Vital Signs Recorded: 21Jul2021 03:52PM Awejwncn824 Flasjykjz22 Height5 ft 6 in Adwivo005 lb 3.62 oz BMI Bbqmvoeset66.83 kg/m2 BSA Calculated1.85 Physical Exam General: None acute distress Eye: Intraocular movements are intact HEENT: Normocephalic Cardiovascular: Regular rate Respiratory: Respirations are nonlabored Gastrointestinal: Nondistended Musculoskeletal: Normal range of motion Neurologic: Alert and oriented x3 Psychiatric: Cooperative appropriate mood and affect. Results/Data Ultrasound Pelvis Transabdominal With [id number] 06:02PMJuly Nix Test NameResultFlagReference Ultr (more content not included)... Normal [facility], No Panel Informationon 07-16 [employer] Phone: US PELVIS TRANSABDOMINAL WIT H TRANSVAGINALon 07-16-2021 US PELVIS TRANSABDOMINAL WITH TRANSVAGINAL Patient Name: BASILIA CORONADO STUDY: US PELVIS TRANSABDOMINAL WITH TRANSVAGINAL; 07/16/2021 6:02 pm INDICATION: 36-year-old woman with abnormal uterine bleeding presenting for evaluation. COMPARISON: None. ACCESSION NUMBER(S): [id number] ORDERING CLINICIAN: JULY NIX TECHNIQUE: Multiple multiplanar static calvin scale, color and spectral waveform sonographic images of the pelvis were obtained. Transabdominal and endovaginal ultrasound was performed. This examination was interpreted at [facility]. FINDINGS: UTERUS: The uterus measures 8.7 cm x 3.9 cm x 3.4 cm. The uterine myometrium appears normal. The endometrium measures a thickness of 13 mm, which is normal. Nabothian cysts are noted. RIGHT ADNEXA: The right ovary measures 3.3 cm x 3.1 cm x 2.1 cm and demonstrates normal flow. Multiple follicles are noted. No gross right adnexal masses are seen, no hydrosalpinx. LEFT ADNEXA: The left ovary measures 3.6 cm x 2.4 cm x 2.2 cm and demonstrates normal flow. There is a complex cyst with internal echoes demonstrating peripheral vascularity consistent with a corpus luteum cyst measuring 2.2 cm x 1.9 cm x 1.0 cm. No gross left adnexal masses are seen, no hydrosalpinx. CUL DE SAC: No gross free fluid is seen in the pelvic cul-de-sac. IMPRESSION: 1. Unremarkable sonographic evaluation of the uterus. 2. Corpus luteum cyst within the left adnexa. 3. Unremarkable sonographic evaluation of the right adnexa. I personally reviewed the images/study and I agree with the findings as stated. This study was interpreted at [place], [place]. Electronically signed by: MILAGRO EDMOND MD [facility] 07-13-2021 Erythrocyte distribution width (RBC) [Ratio] 13.0 % Normal 11.5 - 14.5 [facility] Comment on above: Performed By: #### C BC #### [address] [address] Hematocrit (Bld) [Volume fraction] 40.6 % Normal 36.0 - 46.0 [facility] Comment on above: Performed By: #### C BC #### [address] [address] Hemoglobin (Bld) [Mass/Vol] 14.0 g/dL Normal 12.0 - 16.0 [facility] Comment on above: Performed By: #### C BC #### [address] [address] MCHC (RBC) [Mass/Vol] 34.6 g/dL Normal 32.0 - 36.0 [facility] Comment on above: Performed By: #### C BC #### [address] [address] MCV (RBC) [Entitic vol] 92 fL Normal 80 - 100 [facility] Comment on above: Performed By: #### C BC #### [address] [address] Platelets (Bld) [#/Vol] 234 10*3/uL Normal 150 - 450 [facility] Comment on above: Performed By: #### C BC #### [address] [address] RBC 4.43 x10E12/L Normal 4.00 - 5.20 [facility] Comment on above: Performed By: #### C BC #### [address] [address] WBC (Bld) [#/Vol] 6.3 10*3/uL Normal 4.4 - 11.3 [facility] [place] Comment on above: Performed By: #### C BC #### [address] [address] LMPon 07-13-2021 Last menstrual period start date 25Jun2021 [facility] Work Phone: Laboratory - Hematology and Cell countson 07-13-2021 Erythrocyte distribution width (RBC) [Ratio] 13.0 % See Below [facility] Work Phone: Comment on above: Reference Range: 11. 5 - 14.5 Hematocrit (Bld) [Volume fraction] 40.6 % See Below [facility] Work Phone: Comment on above: Reference Range: 36. 0 - 46.0 Hemoglobin (Bld) [Mass/Vol] 14.0 g/dL See Below [facility] Work Phone: Comment on above: Reference Range: 12. 0 - 16.0 MCHC (RBC) [Mass/Vol] 34.6 g/dL See Below [facility] Work Phone: Comment on above: Reference Range: 32. 0 - 36.0 MCV (RBC) [Entitic vol] 92 fL 80 - 100 [facility] Work Phone: Platelets (Bld) [#/Vol] 234 10*3/uL 150 - 450 [facility]: RBC (Bld) [#/Vol] 4.43 {x10E12/L} See Below [facility] Work Phone: Comment on above: Reference Range: 4.0 0 - 5.20 WBC (Bld) [#/Vol] 6.3 10*3/uL 4.4 - 11.3 [facility] Work Phone: SCIENTIFIC PROGRAMMER - Office Visiton 05- SCIENTIFIC PROGRAMMER - Office Visit Diagnoses/Problems Assessed Abnormal uterine bleeding (AUB) (626.9) (N93.9) Orders Complete Blood Count; Status:Active; Requested for:13Jul2021; Follow-up visit in 3 weeks Outpatient Follow-up Status: Hold For - Scheduling Requested for: 13Jul2021 TSH - Thyroid Stimulating Hormone, Serum; Status:Active; Requested for:13Jul2021; Ultrasound Pelvis Transabdominal With Transvaginal; Status:Hold For - Scheduling; Requested for:13Jul2021; Radiologist to Determine Optimal Study : Y What are the patient's signs and symptoms? : aub Provider Impressions 1)AUB-plan to initiate a work-up given the fact that patient bled through her control pills. And then when she stopped them she has been irregular. We will get a CBC TSH and transvaginal ultrasound to evaluate pathology. Discussed treatment options including other controls may be potentially a 30 mcg pill versus like progesterone only versus LARCs. Discussed surgical management briefly. Patient to consider. Further management to follow Chief Complaint PT HERE TODAY WITH CONCERNS OF IRREGULAR BLEEDING. PT STATES SHE WAS ON CONTROL PILLS, BUT SHE WAS CONSTANTLY BLEEDING WITH IT. PT STATES SHE STOPPED TAKING CONTROL FOR ABOUT 7 WEEKS NOW, AND HER LAST PERIOD LASTED TWO WEEKS. PT STATES SHE DOES NOT WANT TO BE PUT BACK ON THE CONTROL. LMP 06/25/21 History of Present [id number] presents to discuss control. Patient is doing well with her mental health and sermorelin is related to her PMDD. Patient notes in stopping her control her cycles just been almost lasting 2 weeks of spotting. Patient would like to discuss options. Patient doing better on her mental health. Patient is no other acute concerns Review of Systems Constitutional: No fevers, chills Eye:no vision changes Respiratory: no SOB Cardiovascular: no chest pain Gastrointestinal: No nausea, vomiting, diarrhea, constipation, abdominal pain Genitourinary:no dysuria Gynecology: See HPI Active Problems Problems control counseling (V25.09) (Z30.09) BMI 27.0-27.9,adult (V85.23) (Z68.27) Depression, major, single episode, moderate (296.22) (F32.1) Encounter for immunization (V03.89) (Z23) Encounter for preventative adult health care examination (V70.0) (Z00.00) GERD (gastroesophageal reflux disease) (530.81) (K21.9) Heart palpitations (785.1) (R00.2) Herpes simplex type 2 infection (054.9) (B00.9) Mild depression (648.44,311) (O99.345,F53.0) OAB (overactive bladder) (596.51) (N32.81) Overweight (BMI 25.0-29.9) (278.02) (E66.3) Screen for STD (sexually transmitted disease) (V74.5) (Z11.3) Screening for breast cancer (V76.10) (Z12.39) Screening for cervical cancer (V76.2) (Z12.4) Wart of hand (078.10) (B07.9) Women's annual routine gynecological examination (V72.31) (Z01.419) Past Medical History Problems History of (V13.29) 09/2014-SPONTANEOUS 09/12/2015-39 WEEKS, , MALE, #8 5oz History of Menarche (V21.8) ONSET AGE 11 History of Pap test, as part of routine gynecological examination (V76.2) (Z01.419) 01/13/2017; NIL Surgical History Problems History of Ankle surgery History of section 02/06/2020 History of Dilation and curettage 03/11/2019 History of Oral surgery History of Ovarian cystectomy 09/15/2014 History of Tonsillectomy 10/31/2017 Family History Mother Family history of hypertension (V17.49) (Z82.49) Father Family history of colitis (V18.59) (Z83.79) Brother Family history of hypertension (V17.49) (Z82.49) Family history of type 2 diabetes mellitus (V18.0) (Z83.3) Grandparent Family history of diabetes mellitus (V18.0) (Z83.3) Family history of hypertension (V17.49) (Z82.49) Family history of malignant neoplasm (V16.9) (Z80.9) Social History Problems Alcohol use (V49.89) (Z72.89) WINE, 1-2 TIMES PER MONTH Former smoker (V15.82) (Z87.891) No illicit drug use Patient has living will (V49.89) (Z78.9) Sexually active Allergies Medication No Known Drug Allergies Recorded By: Noemy Gambino; 01/21/2019 4:19:43 PM Current Meds Medication NameInstruction Apple Cider Vinegar CAPS Ashwagandha 500 MG Oral Capsule B-12 2500 MCG Oral Tablet B-6 100 MG Oral Tablet Multi-Vitamins TABS Probiotic CAPS Sertraline HCl - 50 MG Oral TabletTake 1 tablet daily Stress ReLeaf CAPS Zinc 50 MG CAPS Vitals Vital Signs Recorded: 13Jul2021 03:27PM Sigaleno374 Rgejzcdqj65 Height5 ft 6 in Zsrurb041 lb 5.76 oz BMI Txxfsmeadj43.37 kg/m2 BSA Calculated1.84 [id number] Physical Exam General: None acute distress Eye: Intraocular movements are intact HEENT: Normocephalic Cardiovascular: Regular rate Respiratory: Respirations are nonlabored Gastrointestinal: Nondistended Musculoskeletal: Normal range of motion Neurologic: Alert and oriented x3 Psychiatric: Cooperative appropriate mood and affect. Signatu (more content not included)... [facility]21 TSH Qn 0.64 m[IU]/L Normal 0.44 - 3.98 [facility] Comment on above: Result Comment: TSH testing is performed using different testing methodology at [facility] than at other [facility]. Direct result comparisons should only be made within the same method. Performed By: #### T SH2 #### [place] [address] TSH - Thyroid Stimulating Ho Bharat oreilly 07-13-2021 TSH Qn 0.64 m[IU]/L See Below [facility] [address] Work Phone: Comment on above: Reference Range: 0.4 4 - 3.98 TSH testing is performed using different testing methodology at [facility] than at other [facility]. Direct result comparisons should only be made within the same method. Office Visit (Family Medicin e)on 06-28-2021 Follow-up visit Diagnoses/Problems Depression, major, single episode, moderate (296.22) (F32.1) Orders Depression, major, single episode, moderate Renew: Sertraline HCl - 50 MG Oral Tablet; Take 1 tablet daily Follow-up visit in 6 months Outpatient Follow-up Status: Hold For - Scheduling Requested for: 28Jun2021 Provider Impressions Depression: will continue on Sertraline m,g daily. Follow up in 6 months. Chief Complaint 3 month. An interactive audio and video telecommunication system which permits real time communications between the patient (at the originating site) and provider (at the distant site) was utilized to provide this telehealth service. Verbal consent was requested and obtained from BASILIA CORONADO on this date, 06/28/2021 03:00 PM , for a telehealth visit. Adult Risk Screening Depression/Suicide Screening: During the past 2 weeks, the patient has not felt down, depressed or hopeless. During the past 2 weeks, the patient has not felt little interest or pleasure in doing things. History of Present Illness Basilia is a 36 yo female seen today virtually fro follow up on depression. Pateint reports depression started , she was initially placed on Sertraline 25 mg by her OBGYN, she reports it worked well and after several months she stopped as she thought she had improved. She was placed back on Sertraline and the dose was increased to 50 mg in 04/2021. Patient reports no symptoms of depression, she states she is doing well on higher dose. 'Scores and Scales' PHQ-9 [id number] 04:30PM PHQ-9 #1. Little interest or pleasure in doing things0-Not at allNearly every day - 3 PHQ-9 #2. Feeling down, depressed, or hopelesS0-Not at allNearly every day - 3 PHQ-9 #3. Trouble falling or staying asleep, or sleeping too much0-Not at allNot at all - 0 PHQ-9 #4. Feeling tired or having little energy0-Not at allNearly every day - 3 PHQ-9 #5. Poor appetite or overeating0-Not at allNearly every day - 3 PHQ-9 #6. Feeling bad about yourself or you are a failure or that you have let yourself or your family down0-Not at allNearly every day - 3 PHQ-9 #7. Trouble concentrating on things, such as reading the newspaper or watch television0-Not at allNearly every day - 3 PHQ-9 #8. Moving or speaking so slowly that other people could have noticed. Or the opposite-being so fidgety or restless that you have been moving around a lot more than usual0-Not at allNot at all - 0 PHQ-9 #9. Thoughts that you would be better off , or of hurting yourself0-Not at allNot at all - 0 PHQ-9 #10. If you checked off any problems, how difficult have these problems made it for you to do your work, take care of things at home, or get along with other people?Not difficult at allSomewhat difficult PHQ-9 Total Score (Please update problem list based on total score)018 PHQ-9 Depression SeverityIn Remission (0-4) Review of Systems Constitutional: no chills, no fever and no night sweats. Cardiovascular: no chest pain, no intermittent leg claudication, no lower extremity edema, no palpitations and no syncope. Respiratory: no cough, no shortness of breath during exertion, no shortness of breath at rest and no wheezing. Gastrointestinal: no abdominal pain, no blood in stools, no constipation, no diarrhea, no melena, no nausea, no rectal pain and no vomiting. Genitourinary: no dysuria, no change in urinary frequency, no urinary hesitancy, no feelings of urinary urgency and no vaginal discharge. Psychiatric: no anxiety, no depression, no emotional problems, no homicidal thoughts, no sleep disturbances and no suicidal ideations. 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) Mild depression (648.44,311) (O99.345,F53.0) OAB (overactive bladder) (596.51) (N32.81) Overweight (BMI 25.0-29.9) (278.02) (E66.3) exam (V24.2) (Z39.2) Screen for STD (sexually transmitted disease) (V74.5) (Z11.3) Screening for breast cancer (V76.10) (Z12.39) Screening for cervical cancer (V76.2) (Z12.4) Status post section routine follow-up (V24.2,V45.89) (Z39.2,Z98.891) Wart of hand (078.10) (B07.9) Women's annual routine gynecological examination (V72.31) (Z01.419) Past Medical History History of (V13.29) 09/2014-SPONTANEOUS 09/12/2015-39 WEEKS, , MALE, #8 5oz History of Menarche (V21.8) ONSET AGE 11 History of Pap test, as part of routine gynecological examination (V76.2) (Z01.419) 01/13/2017; NIL Surgical History History of Ankle surgery Histor (more content not included)... Normal [facility] PHQ-9on 04-26-2021 PHQ-9 0-Not at all [facility] Work Phone: PHQ-9 Not difficult at all [facility] Work Phone: LMPon 04-14-2021 Last menstrual period start date 31Mar2021 [facility] [address] Work Phone: No Panel Informationon 04-12 Adult depression screening assessment Moderately Severe Depression [facility] Work Phone: Not at all - 0 [facility] Work Phone: Nearly every day - 3 [facility] Work Phone: Somewhat difficult [facility] Work Phone: Positive Abnormal [facility] Work Phone: LMPon 03-29-2021 Fall risk assessment a) No falls within the last year [facility] Work Phone: Last menstrual period start date 08Mar2021 [facility] Work Phone: Tobacco use status CP b) No [facility] Work Phone: Laboratory - Cytologyon 03-07 Cytology report Cyto stain.thin prep Doc (Cvx/Vag) [facility] Work Phone: Laboratory - Chemistry and C hemistry - challengeon 01-16-2021 Albumin BCP dye [Mass/Vol] 4.2 g/dL 3.4 - 5.0 [facility] Work Phone: ALP [Catalytic activity/Vol] 68 U/L 33 - 110 [facility] Work Phone: ALT With P-5'-P [Catalytic activity/Vol] 10 U/L 7 - 45 [facility] Work Phone: Comment on above: Patients treated wit h Sulfasalazine may generate falsely decreased results for ALT. Anion gap [Moles/Vol] 10 mmol/L 10 - 20 [facility] Work Phone: AST With P-5'-P [Catalytic activity/Vol] 10 U/L 9 - 39 [facility] Work Phone: Bilirubin [Mass/Vol] 0.6 mg/dL 0.0 - 1.2 [facility] Work Phone: Calcium [Mass/Vol] 9.0 mg/dL 8.6 - 10.3 [facility] Work Phone: Chloride [Moles/Vol] 108 mmol/L above high threshold 98 - 107 [facility] Work Phone: CO2 [Moles/Vol] 26 mmol/L 21 - 32 [facility] Work Phone: Creatinine [Mass/Vol] 0.57 mg/dL See Below [facility] Work Phone: Comment on above: Reference Range: 0.5 0 - 1.05 Glucose [Mass/Vol] 89 mg/dL 74 - 99 [facility] Work Phone: Potassium [Moles/Vol] 3.9 mmol/L 3.5 - 5.3 [facility] Work Phone: Protein [Mass/Vol] 6.8 g/dL 6.4 - 8.2 [facility] Work Phone: Sodium [Moles/Vol] 140 mmol/L 136 - 145 [facility] Work Phone: Urea nitrogen [Mass/Vol] 16 mg/dL 6 - 23 [facility] Work Phone: Laboratory - Hematology and Cell countson 01-16-2021 Erythrocyte distribution width (RBC) [Ratio] 13.2 % See Below [facility] Work Phone: Comment on above: Reference Range: 11. 5 - 14.5 Hematocrit (Bld) [Volume fraction] 42.5 % See Below [facility] Work Phone: Comment on above: Reference Range: 36. 0 - 46.0 Hemoglobin (Bld) [Mass/Vol] 13.9 g/dL See Below [facility] Work Phone: Comment on above: Reference Range: 12. 0 - 16.0 MCHC (RBC) [Mass/Vol] 32.6 g/dL See Below [facility] Work Phone: Comment on above: Reference Range: 32. 0 - 36.0 MCV (RBC) [Entitic vol] 95 fL 80 - 100 [facility] Work Phone: Platelets (Bld) [#/Vol] 221 10*3/uL 150 - 450 [facility] Work Phone: RBC (Bld) [#/Vol] 4.49 {x10E12/L} See Below [facility] Work Phone: Comment on above: Reference Range: 4.0 0 - 5.20 WBC (Bld) [#/Vol] 5.6 10*3/uL 4.4 - 11.3 [facility] Work Phone: Lipid Panelon 01-16-2021 Cholesterol [Mass/Vol] 159 mg/dL 0 - 199 [facility] Work Phone: Comment on above: . AGE DESIRABLE BORD RADHA HIGH HIGH 0-19 Y 0 - 169 170 - 199 >/= 200 20-24 Y 0 - 189 190 - 224 >/= 225 >24 Y 0 - 199 200 - 239 >/= 240 All ranges are based on fasting samples. Specific therapeutic targets will vary based on patient-specific cardiac risk.. Pediatric guidelines reference:Pediatrics 2011, 128(S5). Adult guidelines reference: NCEP ATPIII Guidelines, GALINA 2001, 258:2486-97. Venipuncture immediately after or during the administration of Metamizole may lead to falsely low results. Testing should be performed immediately prior to Metamizole dosing. Cholesterol in HDL [Mass/Vol] 50.0 mg/dL [facility] Work Phone: Comment on above: . AGE VERY LOW LOW N ORMAL HIGH 0-19 Y < 35 < 40 40-45 ---- 20- 24 Y ---- < 40 >45 ---- >24 Y ---- < 40 40-60 >60. Cholesterol in LDL [Mass/Vol] 101 mg/dL above high threshold 0 - 99 [facility] Work Phone: Comment on above: . NEAR BORD AGE MARIAELENA RABLE OPTIMAL HIGH HIGH VERY HIGH 0-19 Y 0 - 109 --- 110-129 >/= 130 ---- 20-24 Y 0 - 119 --- 120-159 >/= 160 ---- >24 Y 0 - 99 100-129 130-159 160-189 >/=190. Cholesterol.total/Ch olesterol in HDL [Mass ratio] 3.2 {ratio} [facility] Work Phone: Comment on above: REF VALUESDESIRABLE < 3.4HIGH RISK > 5.0 Triglyceride [Mass/Vol] 38 mg/dL 0 - 149 [facility] [employer] Phone: Comment on above: . AGE DESIRABLE BORD RADHA HIGH HIGH VERY HIGH 0 D-90 D 19 - 174 ---- ---- ----91 D- 9 Y 0 - 74 75 - 99 >/= 100 ---- 10-19 Y 0 - 89 90 - 129 >/= 130 ---- 20-24 Y 0 - 114 115 - 149 >/= 150 ---- >24 Y 0 - 149 150 - 199 200- 499 >/= 500. Venipuncture immediately after or during the administration of Metamizole may lead to falsely low results. Testing should be performed immediately prior to Metamizole dosing. Lipid Panel 8 mg/dL 0 - 40 [facility] Work Phone: No Panel Informationon 01-16 >60 >60 [facility] [employer] Phone: Comment on above: CALCULATIONS OF ALLIE MATED GFR ARE PERFORMED USING THE MDRD STUDY EQUATION FOR THE IDMS-TRACEABLE CREATININE METHODS. CLIN CHEM 2007;53:766-72 Tobacco Screening.on 021 Tobacco use status CPHS b) No [facility] Work Phone: Cult, Urineon 11-20-2020 Bacteria identified Cx Nom (U) [facility] Work Phone: Otheron 09-16-2019 Interpreted by: NAVI WARD09/17/19 13:05MRN: [id number] Name: BASILIA CORONADO STUDY:US OB COMPLETE; 09/16/2019 3:03 pm INDICATION:preg DUE DATE 02/10/2020. COMPARISON:None. ORDERING CLINICIAN:JULY NIX TECHNIQUE:Multiple images were obtained. Transabdominal ultrasound wasperformed. FINDINGS:There is a single live intrauterine gestation in cephalic position. BPD 4.6 cm, 19 weeks 6 daysHC 16.6 cm, 19 weeks 2 daysAC 14.8 cm, 20 weeks 1 dayFL 3 cm, 19 weeks 3 days This results in a composite gestational age of 19 weeks 6 days + / -1week 3 days. The estimated date of delivery by ultrasound is02/04/2020. By LMP the [place] is 02/10/2020. heart rate measures 157 per minute. Evaluation of anatomywas performed showing normal intracranial anatomy, spinal column,kidneys, urinary bladder, four-chamber heart, diaphragm, stomach,cord insertion, three-vessel cord and extremities. The placenta location is posterior. The amniotic fluid volume isadequate.Estimated weight 309.1 g + / -46.4 g.85.4%.Maternal anatomy: The cervical length is 5.3 cm. IMPRESSION:Single live intrauterine gestation corresponding to 19 weeks 6 days+ / -1 week 3 days.Electronically signed by: KRISTY WARD 09/17/19 13:05 [facility] Work Phone: Final Surgical Pathology Rep [facility] 03-12-2019 Final Surgical Pathology Report . Pathology Reports Accession: Collected Date/Time: Received Date/Time: Pathologist: [id number] 03/11/2019 12:28 EST 03/11/2019 14:13 EST DO EZIO DAILY Final Surgical Pathology Report DIAGNOSIS: HYPERSECRETORY ENDOMETRIUM AND DECIDUA. No definite villi identified. CLINICAL INFORMATION: Procedure: SUCTION DILATION AND CURETTAGE WITH KARYOTYPING Preoperative diagnosis: MISSED Postoperative diagnosis: MISSED SPECIMEN: A PRODUCTS OF CONCEPTION - CYTOGENETICS AND KARYOTYPING GROSS DESCRIPTION: Received fresh labeled products of conception is a 4.5 x 1.3 x 0.6 cm aggregate of red tissue. No chorionic villi, parts or vesicles are grossly identified. Loss Prevention Leader portion is submitted in transport media for cytogenetics. TS -1 Dictated by Toma MOSLEY (ASCP) MICROSCOPIC DESCRIPTION: Slides reviewed. Electronically Signed by Pathology Report verified by [facility] Electronically signed by EZIO DAILY DO Sign out Date: 03/12/2019 12:22 Performing Lab: [facility], [address] [place] [id number] [facility] Normal [facility] ([place]) Comment on above: Performed By: #### S PFR #### [address] [address] .Auto Diffon 03-11-2019 Ammonia (P) [Mass/Vol] 0.30 10 3/mcL Normal 0.09-1.40 [facility] ([place]) Comment on above: Performed By: #### C BC, ADIFF, ANEU, ABORH, ANTIS #### [address] [address] Basophils (Bld) [#/Vol] 0.00 10 3/mcL Normal 0.00-0.27 [facility] ([place]) Comment on above: Performed By: #### C BC, ADIFF, ANEU, ABORH, ANTIS #### [address] [address] Basophils/100 WBC (Bld) 0.9 % Normal 0.0-2.5 [facility] ([place]) Comment on above: Performed By: #### C BC, ADIFF, ANEU, ABORH, ANTIS #### [address] [address] Eosinophils (Bld) [#/Vol] 0.10 10 3/mcL Normal 0.00-0.65 [facility] ([place]) Comment on above: Performed By: #### C BC, ADIFF, ANEU, ABORH, ANTIS #### [address] [address] Eosinophils/100 WBC (Bld) 1.5 % Normal 0.0-6.0 [facility] ([place]) Comment on above: Performed By: #### C BC, ADIFF, ANEU, ABORH, ANTIS #### [address] [address] Lymphocytes (Bld) [#/Vol] 1.50 10 3/mcL Normal 0.90-4.32 [facility] ([place]) Comment on above: Performed By: #### C BC, ADIFF, ANEU, ABORH, ANTIS #### [address] [address] Lymphocytes/100 WBC (Bld) 31.5 % Normal 20.0-40.0 [facility] ([place]) Comment on above: Performed By: #### C BC, ADIFF, ANEU, ABORH, ANTIS #### [address] [address] Monocytes/100 WBC (Bld) 6.5 % Normal 2.0-13.0 [facility] ([place]) Comment on above: Performed By: #### C BC, ADIFF, ANEU, ABORH, ANTIS #### [address] [address] Neutrophils/100 WBC (Bld) 59.6 % Normal 50.0-75.0 [facility] ([place]) Comment on above: Performed By: #### C BC, ADIFF, ANEU, ABORH, ANTIS #### [address] [address] .NEUABSon 03-11-2019 Neutrophils (Bld) [#/Vol] 2.80 10 3/mcL Normal 2.25-8.10 [facility] ([place]) Comment on above: Performed By: #### C BC, ADIFF, ANEU, ABORH, ANTIS #### [address] [address] CBCon 03-11-2019 Erythrocyte distribution width (RBC) [Ratio] 12.9 % Normal 11.5-15.5 [facility] ([place]) Comment on above: Performed By: #### C BC, ADIFF, ANEU, ABORH, ANTIS #### [address] [address] Hematocrit (Bld) [Volume fraction] 39.9 % Normal 34.0-46.0 [facility] ([place]) Comment on above: Performed By: #### C BC, ADIFF, ANEU, ABORH, ANTIS #### [address] [address] Hemoglobin (Bld) [Mass/Vol] 13.5 G/dL Normal 12.0-16.0 [facility] ([place]) Comment on above: Performed By: #### C BC, ADIFF, ANEU, ABORH, ANTIS #### [address] [address] MCH (RBC) [Entitic mass] 31.6 pg Normal 27.0-33.0 [facility] ([place]) Comment on above: Performed By: #### C BC, ADCARMEL, ANEU, ABORH, ANTIS #### [address] [address] MCHC (RBC) [Mass/Vol] 33.8 G/dL Normal 32.0-36.0 [facility] ([place]) Comment on above: Performed By: #### C BC, ADCARMEL, ANEU, ABORH, ANTIS #### [place] [id number] MCV (RBC) [Entitic vol] 93.7 fL Normal 80.0-99.0 [facility] ([place]) Comment on above: Performed By: #### C LEIGH, ADCARMEL, ANEU, ABORH, ANTIS #### [address] [address] Platelet mean volume (Bld) [Entitic vol] 8.3 fL Normal 6.6-10.5 [facility] ([place]) Comment on above: Performed By: #### C BC, ADCARMEL, ANEU, ABORH, ANTIS #### [address] [address] Platelets (Bld) [#/Vol] 216 10 3/mcL Normal 150-450 [facility] ([place]) Comment on above: Performed By: #### C BC, ADCARMEL, ANEU, ABORH, ANTIS #### [address] [address] RBC (Bld) [#/Vol] 4.25 10 6/mcL Normal 4.10-5.30 [facility] ([place]) Comment on above: Performed By: #### C BC, ADCARMEL, ANEU, ABORH, ANTIS #### [address] [address] WBC (Bld) [#/Vol] 4.70 10 3/mcL Normal 4.50-10.80 [facility] ([place]) Comment on above: Performed By: #### C BC, ADIFF, ANEU, ABORH, ANTIS #### [address] [address] TABOon 03-11-2019 ABO/Rh Interp Positive [facility] ([place]) Comment on above: Performed By: #### C BC, ADIFF, ANEU, ABORH, ANTIS #### [address] [address] TABSon 03-11-2019 Antibody Screen Tango Negative Normal [facility] ([place]) Comment on above: Performed By: #### C BC, ADIFF, ANEU, ABORH, ANTIS #### [address] [address] Lab Miscellaneouson 10-27-19 Status See Ref Lab Report Normal [facility] Comment on above: Performed By: #### 1 [id number] #### ANGELICA Send Outs Subsection [address] [place] [address] Status See Ref Lab Report Normal [facility] Comment on above: Performed By: #### 1 [id number] #### ANGELICA Send Outs Subsection [address] [place] [address] Status See Ref Lab Report [facility] Comment on above: Performed By: #### 1 [id number] #### ANGELICA Send Outs Subsection [address] [place], [place] [id number] Factor V Leidenon 10-22-2018 Factor V Leiden Comment Normal [facility] Comment on above: Result Comment: Resu lt: Negative (no mutation found) Factor V Leiden is a specific mutation ([id number]) in the factor V gene that is associated with an increased risk of venous thrombosis. Factor V Leiden is more resistant to inactivation by activated protein C. As a result, factor V persists in the circulation leading to a mild hyper- coagulable state. The Leiden mutation accounts for 90% - 95% of APC resistance. Factor V Leiden has been reported in patients with deep vein thrombosis, pulmonary embolus, central retinal vein occlusion, cerebral sinus thrombosis and hepatic vein thrombosis. Other risk factors to be considered in the workup for venous thrombosis include the [id number] mutation in the factor II (prothrombin) gene, protein S and C deficiency, and antithrombin deficiencies. Anticardiolipin antibody and lupus anticoagulant analysis may be appropriate for certain patients, as well as homocysteine levels. Contact your local [facility] for information on how to order additional testing if desired. Genetic counselors are available for health care providers to discuss results at [phone] ([phone]). Methodology: DNA analysis of the Factor V gene was performed by allele- specific PCR. The diagnostic sensitivity and specificity is >99% for both. Molecular-based testing is highly accurate, but as in any laboratory test, diagnostic errors may occur. All test results must be combined with clinical information for the most accurate interpretation. This test was developed and its performance characteristics determined by [facility]. It has not been cleared or approved by the Food and Drug Administration. References: Mitzy Ramirez (1996). Clin Lab Med 16:169-186. Elda Juárez, PhD, FACMG Camilla Anderson, PhD, FACMG Enmanuel SuhSMia, PhD, FACMG Trudi Infante, PhD, FACMG Clarisa Mcdaniels, PhD, FAC Robby Blake PhD, FAC Performed At: [facility] [address] [facility] [place], [place] [id number] Samuel Gusman MD Ph:[phone] Performed By: #### 2 [id number] #### ANGELICA [employer] [address] [place] [address] Lab Miscellaneouson 10-20-19 19 Status See Ref Lab Report Normal [facility] Comment on above: Performed By: #### 1 [id number] #### ANGELICA Send Outs Subsection [address] [place] [address] Status See Ref Lab Report Normal [facility] Comment on above: Performed By: #### 1 [id number] #### ANGELICA Send Outs Subsection [address] [place] [address] Status See Ref Lab Report [facility] Comment on above: Performed By: #### 1 [id number] #### ANGELICA Send Outs Subsection [address] [place] [address] Protein C Activityon 019 Protein [Mass/Vol] 94 % Normal 73-180 [facility] Comment on above: Result Comment: Perf ormed At: [facility] [address] [id number] Kingsley Barkley MD Ph:[phone] Performed By: #### 2 [id number] #### ANGELICA [employer] [address] [place] [address] Lab Miscellaneouson 10-18-19 19 Test Name lupus anti [facility] Comment on above: Performed By: #### 1 [id number] #### ANGELICA Send Outs Subsection [address] [place] [address] Test Name anticard [facility] Comment on above: Performed By: #### 1 [id number] #### ANGELICA Send Outs Subsection [address] [place] [address] Test Name pro s [facility] Comment on above: Performed By: #### 1 [id number] #### ANGELICA Send Outs Subsection [address] [place] [address] Test Name beta2 [facility] Comment on above: Performed By: #### 1 [id number] #### ANGELICA Send Outs Subsection [address] [place] [address] Test Name antithrombin 3 [facility] Comment on above: Performed By: #### 1 [id number] #### ANGELICA Send Outs Subsection [address] [place] [address] Test Name HENRIETTA danay type [facility] Comment on above: Performed By: #### 1 [id number] #### ANGELICA Send Outs Subsection [address] [place] [address] PTon 10-17-2018 INR Coag (PPP) [Relative time] 1.1 {INR} Normal 0.9-1.1 [facility] Comment on above: Result Comment: INR Recommended Therapeutic ranges: Prophylaxis/treatment of DVT and PE..........2.0-3.0 Prevention of systemic embolism.................2.0-3.0 Mechanical prosthetic values........................2.5-3.5 CRITICAL VALUE.........................................> 4.0 NOTE: New methodology started 03/19/2018 Performed By: #### 2 [id number] #### ANGELICA [employer] [facility] [place] [address] PT Coag (PPP) [Time] 12.8 second(s) High 9.7-12.7 [facility] Comment on above: Result Comment: NOTE : New reference range established on 03/19/2018 due to change in methodology. Performed By: #### 2 [id number] #### ANGELICA [employer] [address] [place] [address] [facility] 03-12-2018 Beta hCG Qnt 4.0 mIU/mL High 0.0-2.9 [facility] Comment on above: Result Comment: FEMA LE (NON-) & MALE <3 BORDERLINE 3 - 5 SUGGEST REPEAT TESTING FEMALE () 1 D - 1 WK 5 - 50 1 - 2 WK 50 - 500 2 - 3 WK 100 - 5000 3 - 4 WK 500 - 78886 4 - 5 WK 1000 - 89660 5 - 6 WK 65721 - 661491 6 - 8 WK 55900 - 642720 2 - 3 [place] [address] - 739525 Performed By: #### 2 [id number] #### ANGELICA [employer] [facility] [place] [address] [facility] [place] 02-28-2018 Beta hCG Qnt 17.0 mIU/mL High 0.0-2.9 [facility] Comment on above: Result Comment: FEMA LE (NON-) & MALE <3 BORDERLINE 3 - 25 SUGGEST REPEAT TESTING FEMALE () 1 D - 1 WK 25 - 50 1 - 2 WK 50 - 500 2 - 3 WK 100 - 5000 3 - 4 WK 500 - 30162 4 - 5 WK 1000 - 10851 5 - 6 WK 27992 - 022479 6 - 8 WK 52946 - 634366 2 - 3 [place] [address] - 066472 Performed By: #### 2 [id number] #### ANGELICA [employer] [address] [place] [address] [facility] [place] 2018 Beta hCG Qnt 35.0 mIU/mL High 0.0-2.9 [facility] Comment on above: Result Comment: FEMA LE (NON-) & MALE <3 BORDERLINE 3 - 25 SUGGEST REPEAT TESTING FEMALE () 1 D - 1 WK 25 - 50 1 - 2 WK 50 - 500 2 - 3 WK 100 - 5000 3 - 4 WK 500 - 67137 4 - 5 WK 1000 - 69002 5 - 6 WK 11500 - 641405 6 - 8 WK 83545 - 628069 2 - 3 [place] [address] - 048207 Performed By: #### 2 [id number] #### ANGELICA [employer] [address] [place] [address] [facility] 10-31-2017 Beta hCG Ql Negative Normal Negative [facility] Comment on above: Performed By: #### 2 [id number] #### ANGELICA Chemistry Manual Subsection [address] [place], [place] [id number] Pathology ([facility])on 01-13-2017 Pathology ([facility]) FINAL GYNECOLOGIC CYTOLOGY [id number] ADEQUACYSatisfactory for Evaluation. No endocervical cells/transformation zonecomponent present.GENERAL CATEGORIZATIONNegative for Intraepithelial Lesion or MalignancyCLINICAL HISTORYLMP: 01/01/2017SPECIMEN(A) SCREENING CERVICAL/ENDOCERVICAL LIQUID-BASED PAPPerformed at [facility], [address] [place] [id number] by: Signed Out by: MO RIVERA Clothes Model Reported: 01/18/2017 Normal [facility] Healthcare Comment on above: Performed By: #### G YN ####[facility] [address] [place] [address] Vital Signs Date Time Vital Sign Value Performing Clinician Facility 06-21-2024 09:06-0400 Body height 167.6 cm Shahnaz JAIN Work Phone: [facility] 06-21-2024 09:06-0400 Body mass index (BMI) [Ratio] 25.82 kg/m2 Shahnaz Braxton [employer]SELING [employer] Work Phone: [facility] 06-21-2024 09:06-0400 Body temperature 98.8 [degF] Shahnaz Moellerta [employer] COUNSELING [employer]IDE[employer] Work Phone: [facility] 06-21-2024 09:06-0400 Body weight 72.58 kg Shahnaz Moellerta [employer] COUNSELING [employer] Work Phone: [facility] 06-21-2024 09:06-0400 Diastolic blood pressure 71 mm[Hg] Shahnaz Moellerta [employer] COUNSELING [employer] Work Phone: [facility] 06-21-2024 09:06-0400 Heart rate 91 /min Shahnaz Moellerta [employer] COUNSELING [employer] Work Phone: [facility] 06-21-2024 09:06-0400 Respiratory rate 18 /min Shahnaz Moellerta [employer] COUNSELING [employer] Work Phone: [facility] 06-21-2024 09:06-0400 SaO2% (BldA) [Mass fraction] 100 % Shahnaz Moellerta [employer] COUNSELING [employer] Work Phone: [facility] 06-21-2024 09:06-0400 Systolic blood pressure 112 mm[Hg] Shahnaz Moellerta [employer] COUNSELING [employer] Work Phone: [facility] 06-14-2024 18:10-0400 Body temperature 97.81 [degF] Juan Wynn MD Work Phone: [facility] 06-14-2024 18:10-0400 Diastolic blood pressure 81 mm[Hg] Juan Wynn MD Work Phone: [facility] 06-14-2024 18:10-0400 Heart rate 81 /min Juan Wynn MD Work Phone: [facility] 06-14-2024 18:10-0400 Respiratory rate 16 /min Juan Wynn MD Work Phone: [facility] 06-14-2024 18:10-0400 SaO2% (BldA) [Mass fraction] 98 % Juan Wynn MD Work Phone: [facility] 06-14-2024 18:10-0400 Systolic blood pressure 122 mm[Hg] Juan Wynn MD Work Phone: [facility] 06-14-2024 16:20-0400 Body height 167.6 cm Juan Wynn MD Work Phone: [facility] 06-14-2024 16:20-0400 Body mass index (BMI) [Ratio] 25.02 kg/m2 Juan Wynn MD Work Phone: [facility] 06-14-2024 16:20-0400 Body weight 70.31 kg Juan Wynn MD Work Phone: [facility] 06-14-2024 09:04-0400 Body height 167.6 cm Shahnaz Braxton [employer] COUNSELING [employer] Work Phone: [facility] 06-14-2024 09:04-0400 Body mass index (BMI) [Ratio] 25.02 kg/m2 Shahnaz Braxton [employer] COUNSELING [employer] Work Phone: [facility] 06-14-2024 09:04-0400 Body temperature 98.1 [degF] Shahnaz Braxton [employer] COUNSELING [employer] Work Phone: [facility] 06-14-2024 09:04-0400 Body weight 70.31 kg Shahnaz Braxton [employer] COUNSELING [employer] Work Phone: [facility] 06-14-2024 09:04-0400 Diastolic blood pressure 85 mm[Hg] Shahnaz Braxton [employer] COUNSELING [employer] Work Phone: [facility] 06-14-2024 09:04-0400 Heart rate 89 /min Shahnaz Braxton [employer] COUNSELING [employer] Work Phone: [facility] 06-14-2024 09:04-0400 Respiratory rate 16 /min Shahnaz Moellerta [employer] COUNSELING [employer] Work Phone: [facility] 06-14-2024 09:04-0400 SaO2% (BldA) [Mass fraction] 98 % Shahnaz Esparza [employer] COUNSELING A[employer] Work Phone: [facility] 06-14-2024 09:04-0400 Systolic blood pressure 125 mm[Hg] Shahnaz Esparza [employer] COUNSELING AIDE[employer] Work Phone: [facility] 04-02-2024 14:55-0500 Body height 167.6 cm Juan Wynn MD Work Phone: [facility] 04-02-2024 14:55-0500 Body mass index (BMI) [Ratio] 26.28 kg/m2 Juan Wynn MD Work Phone: [facility] 04-02-2024 14:55-0500 Body weight 73.85 kg Juan Wynn MD Work Phone: [facility] 04-02-2024 14:55-0500 Diastolic blood pressure 60 mm[Hg] Juan Wynn MD Work Phone: [facility] 04-02-2024 14:55-0500 Heart rate 62 /min Juan Wynn MD Work Phone: [facility] 04-02-2024 14:55-0500 SaO2% (BldA) [Mass fraction] 99 % Juan Wynn MD Work Phone: [facility] 04-02-2024 14:55-0500 Systolic blood pressure 116 mm[Hg] Juan Wynn MD Work Phone: [facility] 03-19-2024 11:36-0500 Body mass index (BMI) [Ratio] 25.5 kg/m2 Bobby Barahona MD Work Phone: [facility] 03-19-2024 11:36-0500 Body weight 71.67 kg Bobby Barahona MD Work Phone: [facility] 03-19-2024 11:36-0500 Diastolic blood pressure 60 mm[Hg] Bobby Barahona MD Work Phone: [facility] 03-19-2024 11:36-0500 Heart rate 67 /min Bobby Barahona MD Work Phone: [facility] 03-19-2024 11:36-0500 SaO2% (BldA) [Mass fraction] 99 % Bobby Barahona MD Work Phone: [facility] 03-19-2024 11:36-0500 Systolic blood pressure 112 mm[Hg] Bobby Barahona MD Work Phone: [facility] 11-29-2023 13:19-0400 Body height 167.6 cm Juan Wynn MD Work Phone: [facility] 11-29-2023 13:19-0400 Body mass index (BMI) [Ratio] 25.24 kg/m2 Juan Wynn MD Work Phone: [facility] 11-29-2023 13:19-0400 Body weight 70.94 kg Juan Wynn MD Work Phone: [facility] 11-29-2023 13:19-0400 Diastolic blood pressure 70 mm[Hg] Juan Wynn MD Work Phone: [facility] 11-29-2023 13:19-0400 Systolic blood pressure 110 mm[Hg] Juan Wynn MD Work Phone: [facility] 11-02-2023 14:18-0400 Body height 167.6 cm Robi Stentz PA-C Work Phone: [facility] 11-02-2023 14:18-0400 Body mass index (BMI) [Ratio] 26.15 kg/m2 Robi Stentz PA-C Work Phone: [facility] 11-02-2023 14:18-0400 Body weight 73.48 kg Robi Stentz PA-C Work Phone: [facility] 11-02-2023 14:18-0400 Diastolic blood pressure 80 mm[Hg] Robi Stentz PA-C Work Phone: [facility] 11-02-2023 14:18-0400 Heart rate 80 /min Robi Stentz PA-C Work Phone: [facility] 11-02-2023 14:18-0400 SaO2% (BldA) [Mass fraction] 97 % Robi Stentz PA-C Work Phone: [facility] 11-02-2023 14:18-0400 Systolic blood pressure 120 mm[Hg] Robi Stentz PA-C Work Phone: [facility] 10-18-2023 10:02-0400 Body height 167.6 cm Juan Wynn MD Work Phone: [facility] 10-18-2023 10:02-0400 Body mass index (BMI) [Ratio] 26.57 kg/m2 Juan Wynn MD Work Phone: [facility] 10-18-2023 10:02-0400 Body weight 74.66 kg Juan Wynn MD Work Phone: [facility] 10-18-2023 10:02-0400 Diastolic blood pressure 72 mm[Hg] Juan Wynn MD Work Phone: [facility] 10-18-2023 10:02-0400 Systolic blood pressure 116 mm[Hg] Juan Wynn MD Work Phone: [facility] 09-12-2022 15:56-0400 Body height 167.6 cm Franny Armendariz [employer] COUNSELING [employer] Work Phone: [facility] 09-12-2022 15:56-0400 Body mass index (BMI) [Ratio] 28.44 kg/m2 Franny Armendariz [employer] COUNSELING [employer] Work Phone: [facility] 09-12-2022 15:56-0400 Body weight 79.92 kg Franny Armendariz [employer] COUNSELING A[employer] Work Phone: [facility] 09-12-2022 15:56-0400 Diastolic blood pressure 70 mm[Hg] Franny Armendariz [employer] COUNSELING [employer] Work Phone: [facility] 09-12-2022 15:56-0400 Heart rate 62 /min Franny Armendariz [employer] COUNSELING AIDE[employer] Work Phone: [facility] 09-12-2022 15:56-0400 Systolic blood pressure 114 mm[Hg] Franny Armendariz [employer] COUNSELING AIDE[employer] Work Phone: [facility] 05-11-2022 15:49-0500 Body height 167.64 cm Franny Duran [place] Work Phone: [place] [address] [place] Work Phone: 05-11-2022 15:49-0500 Body mass index (BMI) [Ratio] 28.65 kg/m2 Franny Duran [place] Work Phone: [place] [address] [place] Work Phone: 05-11-2022 15:49-0500 Body surface area Derived from formula 1.9 m2 Franny Duran [place] Work Phone: [place] [address] [place] Work Phone: 05-11-2022 15:49-0500 Body weight 80.51 kg Franny Luisd Work Phone: [place] [address] [place] Work Phone: 05-11-2022 15:49-0500 Diastolic blood pressure 60 mm[Hg] Franny Duran [place] Work Phone: [facility] [address] [place] Work Phone: 05-11-2022 15:49-0500 Systolic blood pressure 110 mm[Hg] Franny Duran Linda Work Phone: [facility] [address] [place] Work Phone: 01-03-2022 08:13-0400 Body height 167.64 cm Franny Duran Linda Work Phone: [facility] Work Phone: 01-03-2022 08:13-0400 Body mass index (BMI) [Ratio] 28.08 kg/m2 Franny Luisd Work Phone: [facility] Work Phone: 01-03-2022 08:13-0400 Body surface area Derived from formula 1.89 m2 Franny Luisd Work Phone: [facility] Work Phone: 01-03-2022 08:13-0400 Body weight 78.93 kg Franny Luisd Work Phone: [facility] Work Phone: 01-03-2022 08:13-0400 Diastolic blood pressure 78 mm[Hg] Franny Luisd Work Phone: [facility] Work Phone: 01-03-2022 08:13-0400 Heart rate 78 /min Franny Luisd Work Phone: [facility] Work Phone: 01-03-2022 08:13-0400 Systolic blood pressure 122 mm[Hg] Franny Luisd Work Phone: [facility] Work Phone: 12-20-2021 16:00-0400 Body height 167.64 cm Franny Luisd Work Phone: [facility] Work Phone: 12-20-2021 16:00-0400 Body mass index (BMI) [Ratio] 27.37 kg/m2 Franny Duran [place] Work Phone: [facility] Work Phone: 12-20-2021 16:00-0400 Body surface area Derived from formula 1.86 m2 Franny Luisd Work Phone: [facility] Work Phone: 12-20-2021 16:00-0400 Body weight 76.91 kg Franny Duran [place] Work Phone: [facility] Work Phone: 12-20-2021 16:00-0400 Diastolic blood pressure 64 mm[Hg] Franny Duran [place] Work Phone: [facility] Work Phone: 12-20-2021 16:00-0400 Heart rate 60 /min Franny Duran [place] Work Phone: [facility] Work Phone: 12-20-2021 16:00-0400 Systolic blood pressure 110 mm[Hg] Franny L Linda Work Phone: [facility] Work Phone: 11-22-2021 19:34-0400 Body height 168 cm Emily Marcum Other Phone: [facility] 11-22-2021 19:34-0400 Body temperature 98.24 [degF] Emily Marcum Other Phone: [facility] 11-22-2021 19:34-0400 Diastolic blood pressure 69 mm[Hg] Emily Marcum Other Phone: [facility] 11-22-2021 19:34-0400 Heart rate 66 /min Emily Marcum Other Phone: [facility] 11-22-2021 19:34-0400 SaO2% (BldA) [Mass fraction] 97 % Emily Marcum Other Phone: [facility] 11-22-2021 19:34-0400 Systolic blood pressure 106 mm[Hg] Emily Marcum Other Phone: [facility] 09-22-2021 15:46-0400 Body height 167.64 cm Franny Duran [place] Work Phone: [address] Work Phone: 09-22-2021 15:46-0400 Body mass index (BMI) [Ratio] 26.76 kg/m2 Franny Armendariz Work Phone: [employer] Work Phone: 09-22-2021 15:46-0400 Body surface area Derived from formula 1.85 m2 Franny Armendariz Work Phone: [employer] Work Phone: 09-22-2021 15:46-0400 Body weight 75.2 kg Franny Armendariz Work Phone: [employer] Work Phone: 09-22-2021 15:46-0400 Diastolic blood pressure 70 mm[Hg] Franny Armendariz Work Phone: [employer] Work Phone: 09-22-2021 15:46-0400 Systolic blood pressure 100 mm[Hg] Franny Armendariz Work Phone: [employer] Work Phone: 08-27-2021 15:17-0400 Body temperature 99.68 [degF] Emily Marcum Other Phone: [facility] 08-27-2021 15:17-0400 Body weight 74 kg Emily Trixie Other Phone: [facility] 08-27-2021 15:17-0400 Diastolic blood pressure 75 mm[Hg] Emily Marcum Other Phone: [facility] 08-27-2021 15:17-0400 Heart rate 76 /min Emily Marcum Other Phone: [facility] 08-27-2021 15:17-0400 Respiratory rate 16 /min Emily Marcum Other Phone: [facility] 08-27-2021 15:17-0400 SaO2% (BldA) [Mass fraction] 99 % Emily Marcum Other Phone: [facility] 08-27-2021 15:17-0400 Systolic blood pressure 121 mm[Hg] Emily Marcum Other Phone: [facility] 08-17-2021 14:55-0400 Body height 167.64 cm Franny L Linda Work Phone: [facility] [employer] Work Phone: 08-17-2021 14:55-0400 Body mass index (BMI) [Ratio] 26.72 kg/m2 Franny L Linda Work Phone: [facility] [employer] Work Phone: 08-17-2021 14:55-0400 Body surface area Derived from formula 1.85 m2 Franny L Linda Work Phone: [place] [address] [place] Work Phone: 08-17-2021 14:55-0400 Body weight 75.1 kg Franny L [place] Work Phone: [facility] [employer] Work Phone: 08-17-2021 14:55-0400 Diastolic blood pressure 68 mm[Hg] Franny L [place] Work Phone: [place] [address] [place] Work Phone: 08-17-2021 14:55-0400 Systolic blood pressure 110 mm[Hg] Franny L Linda Work Phone: [employer] [place] [address] [place] Work Phone: 08-03-2021 15:27-0400 Body height 167.64 cm Franny L Linda Work Phone: [place] [address] [place] Work Phone: 08-03-2021 15:27-0400 Body mass index (BMI) [Ratio] 26.47 kg/m2 Franny L [place] Work Phone: [address] Work Phone: 08-03-2021 15:27-0400 Body surface area Derived from formula 1.84 m2 Franny Duran [place] Work Phone: [address] Work Phone: 08-03-2021 15:27-0400 Body weight 74.4 kg Franny Duran [place] Work Phone: [address] Work Phone: 08-03-2021 15:27-0400 Diastolic blood pressure 64 mm[Hg] Franny Duran [place] Work Phone: [address] Work Phone: 08-03-2021 15:27-0400 Systolic blood pressure 110 mm[Hg] Franny Luisd Work Phone: [address] Work Phone: 07-21-2021 15:52-0400 Body height 167.64 cm Franny Luisd Work Phone: [address] Work Phone: 07-21-2021 15:52-0400 Body mass index (BMI) [Ratio] 26.83 kg/m2 Franny Luisd Work Phone: [address] Work Phone: 07-21-2021 15:52-0400 Body surface area Derived from formula 1.85 m2 Franny Duran [place] Work Phone: [address] Work Phone: 07-21-2021 15:52-0400 Body weight 75.4 kg Franny Duran [place] Work Phone: [address] Work Phone: 07-21-2021 15:52-0400 Diastolic blood pressure 62 mm[Hg] Franny Armendariz Work Phone: [address] Work Phone: 07-21-2021 15:52-0400 Systolic blood pressure 112 mm[Hg] Franny Armendariz Work Phone: [address] Work Phone: 07-13-2021 15:27-0400 Body height 167.64 cm Franny Armendariz Work Phone: [address] Work Phone: 07-13-2021 15:27-0400 Body mass index (BMI) [Ratio] 26.37 kg/m2 Franny Armendariz Work Phone: [address] Work Phone: 07-13-2021 15:27-0400 Body surface area Derived from formula 1.84 m2 Franny Armendariz Work Phone: [address] Work Phone: 07-13-2021 15:27-0400 Body weight 74.1 kg Franny Armendariz Work Phone: [address] Work Phone: 07-13-2021 15:27-0400 Diastolic blood pressure 58 mm[Hg] Frnany Armendariz Work Phone: [address] Work Phone: 07-13-2021 15:27-0400 Systolic blood pressure 102 mm[Hg] Franny Armendariz Work Phone: [address] Work Phone: 04-26-2021 15:06-0500 0 1 Emily Duran [place] Work Phone: [facility] Work Phone: Comment on above: PHQ-9 TS 04-14-2021 15:39-0500 Body height 167.64 cm Emily L Trixie Work Phone: [place] [address] [place] Work Phone: 04-14-2021 15:39-0500 Body mass index (BMI) [Ratio] 26.87 kg/m2 Emily L Trixie Work Phone: [address] Work Phone: 04-14-2021 15:39-0500 Body surface area Derived from formula 1.85 m2 Emily L Trixie Work Phone: [address] Work Phone: 04-14-2021 15:39-0500 Body temperature 98.4 [degF] Emily L Trixie Work Phone: [address] Work Phone: 04-14-2021 15:39-0500 Body weight 75.5 kg Emily L Trixie Work Phone: [address] Work Phone: 04-14-2021 15:39-0500 Diastolic blood pressure 70 mm[Hg] Emily L Trixie Work Phone: [place] [address] [place] Work Phone: 04-14-2021 15:39-0500 Systolic blood pressure 100 mm[Hg] Emily L Trixie Work Phone: [address] Work Phone: 03-29-2021 15:57-0500 Body height 167.64 cm Emily L Trixie Work Phone: [facility] Work Phone: 03-29-2021 15:57-0500 Body mass index (BMI) [Ratio] 27.26 kg/m2 Emily L Trixie Work Phone: [facility] Work Phone: 03-29-2021 15:57-0500 Body surface area Derived from formula 1.86 m2 Emily Marcum Work Phone: [facility] [facility] Work [facility]: 03-29-2021 15:57-0500 Body temperature 98.6 [degF] Emily Marcum Work Phone: [facility] Work Phone: 03-29-2021 15:57-0500 Body weight 76.6 kg Emily L Trixie Work Phone: [facility] Work Phone: 03-29-2021 15:57-0500 Diastolic blood pressure 70 mm[Hg] Emily L Trixie Work Phone: [facility] Work Phone: 03-29-2021 15:57-0500 Systolic blood pressure 100 mm[Hg] Emily L Trixie Work Phone: [facility] Work Phone: 01-15-2021 16:02-0500 Body height 167.64 cm Emily Marcum Work Phone: [facility] Work Phone: 01-15-2021 16:02-0500 Body mass index (BMI) [Ratio] 27.6 kg/m2 Emily Marcum Work Phone: [facility] Work Phone: 01-15-2021 16:02-0500 Body surface area Derived from formula 1.87 m2 Emily Marcum Work Phone: [facility] Work Phone: 01-15-2021 16:02-0500 Body weight 77.57 kg Emily L Trixie Work Phone: [facility] Work Phone: 01-15-2021 16:02-0500 Diastolic blood pressure 64 mm[Hg] Emily Marcum Work Phone: [facility] Work Phone: 01-15-2021 16:02-0500 Heart rate 60 /min Emily Marcum Work Phone: [facility] Work Phone: 01-15-2021 16:02-0500 Systolic blood pressure 112 mm[Hg] Emily Marcum Work Phone: [facility] Work Phone: 10-15-2019 17:31-0400 BMI (Body Mass Index) 27.32 kg/m2 July Nix [facility] [address] Work Phone: 10-15-2019 17:31-0400 Body Temperature 97.7 [degF] July Nix [facility] [address] Work Phone: 10-15-2019 17:31-0400 Body weight 77.11 kg July Nix [facility] [address] Work Phone: 10-15-2019 17:31-0400 BP Diastolic 60 mm[Hg] July Nix [facility] [address] Work Phone: 10-15-2019 17:31-0400 BP Systolic 116 mm[Hg] July Nix [facility] [address] Work Phone: 10-15-2019 17:31-0400 BSA (Body Surface Area) 1.87 m2 July Nix [facility] [address] Work Phone: 10-15-2019 17:31-0400 Height 168 cm July Nix [facility] [address] Work Phone: 09-16-2019 13:14-0400 BMI (Body Mass Index) 26.2 kg/m2 July Nix [facility] [address] Work Phone: 09-16-2019 13:14-0400 Body Temperature 97.3 [degF] July [facility] [address] Work Phone: 09-16-2019 13:14-0400 Body weight 73.94 kg July Nix [facility] [address] Work Phone: 09-16-2019 13:14-0400 BP Diastolic 60 mm[Hg] July Nix [facility] [address] Work Phone: 09-16-2019 13:14-0400 BP Systolic 100 mm[Hg] July Nix [facility] [address] Work Phone: 09-16-2019 13:14-0400 BSA (Body Surface Area) 1.84 m2 July [facility] [address] Work Phone: 09-16-2019 13:14040 Height 168 cm July [facility] [address] Work Phone: Encounters Encounter Date Encounter Type Care Provider Facility Start: 08-09-2024 ambulatory Celine Maira Facility:[facility] Start: 07-23-2024 End: 07-23-2024 ambulatory [facility] Start: 07-08-2024 End: 07-08-2024 ambulatory [facility] Start: 06-27-2024 End: 06-27-2024 ambulatory Celine Maira Facility:[facility] Start: 06-21-2024 End: 06-21-2024 Patient encounter procedure Shahnaz Eugenie Braxton [employer] COUNSELING AIDE-HOME CARE LIAISON Work Phone: [facility] Comment on above: Anterolisthesis of l umbosacral spine (Primary Dx); Muscle strain of gluteal region, right, initial encounter Start: 06-21-2024 End: 06-21-2024 ambulatory [facility] Start: 06-14-2024 End: 06-14-2024 Emergency department patient visit JUAN [facility] Comment on above: Acute right-sided lo w back pain with right-sided sciatica (Primary Dx); Pars defect with spondylolisthesis Start: 06-14-2024 End: 06-14-2024 Patient encounter procedure Shahnaz Esparza PREPAROLE COUNSELING AIDE-HOME CARE LIAISON Work Phone: [facility] Comment on above: Muscle strain of glu teal region, right, initial encounter (Primary Dx) Start: 06-14-2024 End: 06-14-2024 ambulatory [facility] Start: 06-13-2024 End: 06-13-2024 Emergency department patient visit [facility] Start: 05-04-2024 End: 05-04-2024 Office outpatient visit 15 minutes Viridiana Sood MD Work Phone: [facility] Comment on above: Pityriasis rosea (Pr imary Dx) Start: 05-04-2024 End: 05-04-2024 ambulatory [facility] Start: 04-02-2024 End: 04-02-2024 Office outpatient visit 25 minutes Juan Wynn MD Work Phone: [facility] Comment on above: Irregular periods (P rimary Dx); Mastodynia of left breast Start: 04-02-2024 End: 04-02-2024 ambulatory [facility] Start: 03-21-2024 End: 03-21-2024 Subsequent hospital visit by physician Domenic Ultrasound 1 [facility] Comment on above: Mastodynia of left b reast Start: 03-21-2024 End: 03-21-2024 ambulatory BOBBY BARAHONA [facility] Start: 03-19-2024 End: 03-19-2024 Subsequent hospital visit by physician Domenic X-Ray Fluoro 1 [facility] Comment on above: Mastodynia of left b reast Start: 03-19-2024 End: 03-19-2024 ambulatory BOBBY BARAHONA [facility] Start: 03-19-2024 End: 03-19-2024 Office outpatient new 30 minutes Bobby Barahona MD Work Phone: [facility] Comment on above: Mastodynia of left b reast (Primary Dx); Entrapment of left ulnar nerve Start: 03-19-2024 End: 03-19-2024 ambulatory BOBBY [facility] Ambulatory Start: 11-29-2023 End: 11-29-2023 Office outpatient visit 25 minutes Juan Wynn MD Work Phone: [facility] Comment on above: PMDD (premenstrual d ysphoric disorder) (Primary Dx); History of clenching of mandible Start: 11-29-2023 End: 11-29-2023 ambulatory JUAN Ramirez OLEG [facility] Amb[facility] Start: 11-15-2023 End: 11-15-2023 Office outpatient visit 15 minutes Nahomy JAIN Work Phone: [facility] Comment on above: Dysuria (Primary Dx) Start: 11-15-2023 End: 11-15-2023 ambulatory [facility] Start: 11-04-2023 End: 11-04-2023 ambulatory [facility] Start: 11-02-2023 End: 11-02-2023 Office outpatient visit 15 minutes Robi Brennan PA-C Work Phone: [facility] Comment on above: Vitamin D insufficie ncy (Primary Dx); Elevated blood sugar; Fatigue, unspecified type; Screening cholesterol level; Low iron; PMDD (premenstrual dysphoric disorder) Start: 11-02-2023 End: 11-02-2023 ambulatory [facility] Ambulatory Start: 10-18-2023 End: 10-18-2023 Patient encounter status Juan Wynn MD Work Phone: [facility] Work Phone: Start: 10-18-2023 End: 10-18-2023 Periodic preventive med est patient 18-39 yrs Juan Wynn MD Work Phone: [facility] Comment on above: Encounter for gyneco logical examination with abnormal finding (Primary Dx); PMDD (premenstrual dysphoric disorder) Start: 10-18-2023 End: 10-18-2023 ambulatory JUAN Ramirez [facility] Start: 09-12-2022 End: 09-12-2022 Office outpatient visit 15 minutes Franny Armendariz PREPAROLE COUNSELING AIDE-HOME CARE LIAISON Work Phone: [facility] Comment on above: Vitamin D insufficie ncy (Primary Dx); Depression, major, single episode, moderate (CMS/HCC) Start: 05-18-2022 Chart Update Franny Armendariz Work Phone: [facility] Work Phone: Start: 05-16-2022 Chart Update Franny Armendariz Work Phone: [facility] Work Phone: Start: 05-16-[address] Franny Centeno [place] Fa cility:[id number] Start: 05-11-2022 Initial preventive m edicine new pt age 18-39yrs Franny Armendariz Work Phone: [facility] Work Phone: Start: 05-11-2022 ambulatory MD [facility] Facility:[id number] Start: 03-15-2022 Online digital e/m s vc est pt <7 d 11-20 minutes Franny Armendariz Work Phone: [facility] Work Phone: Start: 03-15-[address] Franny Centeno [place] Fa cility:[id number] Start: 03-03-2022 AUDIT Franny Armendariz Work Phone: [facility] Work Phone: Start: 01-04-2022 Chart Update Franny Armendariz Work Phone: [facility] Work Phone: Start: 01-03-2022 Office outpatient vi sit 15 minutes Franny Armendariz Work Phone: [facility] Work Phone: Start: 01-03-2022 [address] Mrs[address] Franny Armendariz Fa cility:[id number] Start: 12-20-2021 Office outpatient vi sit 15 minutes Franny Duran [place] Work Phone: [facility] Work Phone: Start: 12-20-2021 Patient encounter procedure Pablito Duran [place] Work Phone: [facility] Work Phone: Start: 12-20-20[address] Mrs[address] Franny Armendariz Fa cility:[id number] Start: 11-22-2021 End: 11-22-2021 Emergency department patient visit Jacob Titus [facility] Start: 09-22-2021 Office outpatient vi sit 10 minutes Franny Duran [place] Work Phone: [facility] Work Phone: Start: 09-22-2021 amb[address] Mrs. Franny Armendariz Fa cility:[id number] Start: 09-13-2021 Chart Update Franny Duran [place] Work Phone: [facility] Work Phone: Start: 09-09-2021 End: 09-09-[address] July Nix Facility:[id number] Start: 09-09-2021 [facility], Provider: July Nix, Status: Pen, Time: 7:00 AM Franny Duran [place] Work Phone: [facility] [address] Work Phone: Start: 09-08-2021 Chart Update Franny Duran [place] [facility]: [facility] [address] Work Phone: Start: 09-07-[address] July Nix Fa cility:[id number] Start: 08-27-2021 End: 08-27-2021 Emergency department patient visit Ezio Macdonald [facility] Emergency 04 Start: 08-27-2021 End: 08-27-2021 Emergency department patient visit Ms. Jacob Titus Facility:[id number] Start: 08-17-2021 [address] Mrs[address] Franny Armendariz Fa cility:[id number] Start: 08-06-2021 Chart Update Franny Duran [place] Work Phone: [facility] Work Phone: Start: 08-03-2021 ambulatory Mrs. Franny Armendariz Fa cility:[facility] Start: 08-03-2021 Patient encounter procedure Pablito Duran [place] Work Phone: [facility] Work Phone: Start: 07-21-2021 Office outpatient vi sit 15 minutes Franny Duran [place] Work Phone: [facility] Work Phone: Start: 07-21-2021 [address] Mrs[address] Franny Armendariz Fa cility:[id number] Start: 07-16-[address] July Nix Fa cility:[id number] Start: 07-13-2021 Office outpatient vi sit 15 minutes Franny Duran [place] Work Phone: [facility] Work Phone: Start: 07-13-2021 [address] Mrs[address] Franny Armendariz Fa cility:[id number] Start: 06-28-2021 Online digital e/m s vc est pt <7 d 11-20 minutes Franny Duran [place] Work Phone: [facility] Work Phone: Start: 06-28-2021 [address] Mrs[address] Franny Armendariz Fa cility:[id number] Start: 05-07-2021 AUDIT Emily Marcum Work Phone: [facility] Work Phone: Start: 04-26-2021 Office outpatient vi sit 15 minutes Emily Marcum Work Phone: [facility] Work Phone: Start: 04-14-2021 DANAE, Provider: July Nix, Status: Pen, Time: 3:30 PM Emily Marcum Work Phone: [facility] Work Phone: Start: 04-14-2021 Office outpatient vi sit 10 minutes Emily Marcum Work Phone: [facility] [address] Work Phone: Start: 04-12-2021 Patient encounter procedure Radha Marcum Work Phone: [facility] Work Phone: Start: 02-22-2021 Patient encounter procedure Radha Marcum Work Phone: [facility] Work Phone: Start: 01-16-2021 Chart Update Emily Marcum Work Phone: [facility] Work Phone: Start: 01-15-2021 Periodic preventive med est patient 18-39 yrs Emily Marcum Work Phone: [facility] Work Phone: Start: 11-21-2020 Chart Update Emily Marcum Work Phone: [facility] Work Phone: Start: 10-15-2019 Patient encounter procedure July Ad air [facility] [address] Work Phone: Start: 09-16-2019 Patient encounter procedure July Ad air [facility] [address] Work Phone: Start: 08-20-2019 Patient encounter procedure July Ad air [facility] [address] Work Phone: Start: 06-28-2019 Patient encounter procedure July Ad air [facility] [address] Work Phone: Encounter for gyneco logical examination (general) (routine) without abnormal findings Emily Marcum Work Phone: [facility] Work Phone: Comment on above: 01/13/2017; NIL; Menarche Emily Marcum Work Phone: [facility] Work Phone: Comment on above: ONSET AGE 11; Patient encounter procedure Bozena Marcum Work Phone: [facility] Work Phone: Patient encounter status Emily Marcum Work Phone: [facility] Work Phone: Procedures Date Procedure Procedure Detail Performing Clinician Start: 06-14-2024 Radex spine lumbosac ral 2/3 views Basilia Gan PREPAROLE COUNSELING AIDE-HOME CARE LIAISON Work Phone: Start: 03-21-2024 Us breast uni real t satya with image limited Bobby Barahona MD Work Phone: Start: 03-21-2024 Diagnostic mammograp hy computer-aided detcj bi Bobby Barahona MD Work Phone: Start: 11-04-2023 Lipid 1996 panel - S rachel or Plasma Nahomy Hernandez PREPAROLE COUNSELING AIDE-HOME CARE LIAISON Work Phone: Start: 09-07-[address] Sheryl Nix Comment on above: Performed By: #### T +S #### [facility] [address] [place] [address] Start: 09-07-2021 Antibody screen Mrs. Pablito alejandro [place] Comment on above: Order Comment: TEST TYPE + SCREEN WAS CANCELLED, 09/07/2021 10:11 X. Performed By: #### T +S ####[id number] [place] [address] Start: 03-29-2021 Microscopic observat ion [Identifier] in Cervix by Cyto stain Juan Wynn MD Work Phone: Start: 01-16-2021 Lipid 1996 panel - S rachel or Plasma Franny Armendariz PREPAROLE COUNSELING AIDE-HOME CARE LIAISON Work Phone: Start: 10-15-2019 CBC W Auto Different ial panel - Blood July Ray Start: 10-15-2019 Glucose post glucose dose July Carbon section July Carbon Comment on above: 02/06/2020; Dilation and curettage July Carbon Comment on above: 03/11/2019; Endometrial ablation Franny Duran [place] Work Phone: Comment on above: 09/09/2021; Excision of cyst of ovary Br ett [facility] Comment on above: 09/15/2014; Operation on mouth July Ada ir Operative procedure on ankle July Carbon Tonsillectomy July Carbon Comment on above: 10/31/2017; Plan of Treatment Date Care Activity Detail Author Start: 2037 Zoster Vaccines (1 of 2) Zoste r Vaccines (1 of 2) [facility] Start: 11-14-2029 DTaP/Tdap/Td Vaccine s (3 - Td or Tdap) DTaP/Tdap/Td Vaccines (3 - Td or Tdap) [facility] Start: 11-03-2028 Lipid panel Lipid Panel [facility] Start: 01-16-2026 Lipid panel Lipid Panel [facility] Start: 12-04-2024 End: 12-04-2024 Patient encounter procedure [facility] Start: 11-04-2024 Influenza vaccination Influenz a Vaccine (Season Ended) [facility] Start: 11-02-2024 Yearly Adult Physical Yearly Adult [facility] Start: 10-31-2024 End: 10-31-2024 Patient encounter procedure 10/31/2024 12:45 PM EDT Office Visit [facility] [address] [place] [id number] Robi Brennan PA-C [address] [facility] [address] [place] [address] [facility] Start: 10-18-2024 Yearly Adult Physical Yearly Adult P [facility] Start: 05-30-2024 End: 05-30-2024 Patient encounter procedure 05/30/2024 2:40 PM EDT Office Visit [place] [address] [place] [address] Juan Wynn MD [address] [place] [address] [facility] Start: 04-02-2024 End: 04-02-2024 Patient encounter procedure 04/02/2024 3:00 PM EST Office Visit [place] [address] [place] [address] Juan Wynn MD [address] [place] [address] [facility] Start: 04-02-2024 End: 04-02-2025 Estradiol (E2) [Mass/volume] in Serum or Plasma Estradiol Lab Routine Irregular periods Expected: 04/02/2024 (Approximate), Expires: 04/02/2025 [facility] Work Phone: Comment on above: Expected: 04/02/2024 (Approximate), Expires: 04/02/2025 Start: 04-02-2024 End: 04-02-2025 Follitropin [Units/volume] in Serum or Plasma FSH Lab Routine Irregular periods Expected: 04/02/2024 (Approximate), Expires: 04/02/2025 [facility] Service Area Work Phone: Comment on above: Expected: 04/02/2024 (Approximate), Expires: 04/02/2025 Start: 04-02-2024 End: 04-02-2025 Prolactin [Mass/volume] in Serum or Plasma Prolactin level Lab Routine Irregular periods Expected: 04/02/2024 (Approximate), Expires: 04/02/2025 [facility] Work Phone: Comment on above: Expected: 04/02/2024 (Approximate), Expires: 04/02/2025 Start: 04-02-2024 End: 04-02-2025 Tsh With Reflex To Free T4 If Abnormal Tsh With Reflex To Free T4 If Abnormal Lab Routine Irregular periods Expected: 04/02/2024 (Approximate), Expires: 04/02/2025 [facility] Work Phone: Comment on above: Expected: 04/02/2024 (Approximate), Expires: 04/02/2025 Start: 03-29-2024 Screening for malign ant neoplasm of cervix [facility] Start: 03-21-2024 End: 03-21-2024 Patient encounter procedure 03/21/2024 9:30 AM EST Appointment [address] [phone] [facility] Start: 03-21-2024 End: 03-21-2024 Patient encounter procedure 03/21/2024 8:15 AM EST Appointment [address] [phone] [facility] Start: 03-19-2024 End: 05-17-2025 DBT Breast - bilateral diagnostic BI mammo bilateral diagnostic tomosynthesis Imaging Routine Mastodynia of left breast Expected: 03/19/2024, Expires: 05/17/2025 [facility] Service Area Work Phone: Comment on above: Expected: 03/19/2024 , Expires: 05/17/2025 Start: 03-19-2024 End: 05-17-2025 US Breast - bilateral limited BI US breast limited bilateral Imaging Routine Mastodynia of left breast Expected: 03/19/2024, Expires: 05/17/2025 [facility] Work Phone: Comment on above: Expected: 03/19/2024 , Expires: 05/17/2025 Start: 03-19-2024 End: 03-19-2025 XR Chest 2 Views [facility] Work Phone: Comment on above: Expected: 03/19/2024 , Expires: 03/19/2025 Once for 1 Occurrenc es starting 03/19/2024 until 03/19/2024 Start: 11-29-2023 End: 11-29-2023 Patient encounter procedure [facility] Start: 11-15-2023 End: 11-14-2024 Urinalysis complete W Reflex Culture panel - Urine Urinalysis with Reflex Culture and Microscopic Lab Routine Dysuria Expected: 11/15/2023 (Approximate), Expires: 11/14/2024 [facility] Service Area Work Phone: Comment on above: Expected: 11/15/2023 (Approximate), Expires: 11/14/2024 Start: 11-05-2023 COVID-19 Vaccine () COVID-19 Vaccine ( season) [facility] Start: 11-05-2023 COVID-19 Vaccine () COVID-19 Vaccine () [facility] Start: 11-05-2023 Influenza vaccination Influenza Vacc ine (#1) [facility] Start: 11-02-2023 End: 11-02-2023 Patient encounter procedure 11/02/2023 2:15 PM EDT Office Visit [facility] [address] [facility] [address] [place] [id number] Robi Brennan PA-C [address] [facility] [address] [place] [id number] [facility] Start: 11-02-2023 End: 11-01-2024 25-hydroxyvitamin D3 [Mass/volume] in Serum or Plasma Vitamin D 25-Hydroxy,Total (for eval of Vitamin D levels) Lab Routine Vitamin D insufficiency Expected: 11/02/2023 (Approximate), Expires: 11/01/2024 [facility] Work Phone: Comment on above: Expected: 11/02/2023 (Approximate), Expires: 11/01/2024 Start: 11-02-2023 End: 11-01-2024 CBC panel - Blood by Automated count CBC Lab Routine Low iron Expected: 11/02/2023 (Approximate), Expires: 11/01/2024 [facility] Service Area Work Phone: Comment on above: Expected: 11/02/2023 (Approximate), Expires: 11/01/2024 Start: 11-02-2023 End: 11-01-2024 Cobalamin (Vitamin B12) [Mass/volume] in Serum or Plasma Vitamin B12 Lab Routine Fatigue, unspecified type Expected: 11/02/2023 (Approximate), Expires: 11/01/2024 [facility] Work Phone: Comment on above: Expected: 11/02/2023 (Approximate), Expires: 11/01/2024 Start: 11-02-2023 End: 11-01-2024 Comprehensive metabolic 2000 panel - Serum or Plasma Comprehensive Metabolic Panel Lab Routine Elevated blood sugar Expected: 11/02/2023 (Approximate), Expires: 11/01/2024 [facility] Work Phone: Comment on above: Expected: 11/02/2023 (Approximate), Expires: 11/01/2024 Start: 11-02-2023 End: 11-01-2024 Ferritin [Mass/volume] in Serum or Plasma Ferritin Lab Routine Low iron Expected: 11/02/2023 (Approximate), Expires: 11/01/2024 [facility] Work Phone: Comment on above: Expected: 11/02/2023 (Approximate), Expires: 11/01/2024 Start: 11-02-2023 End: 11-01-2024 Iron and Iron binding capacity panel - Serum or Plasma Iron and TIBC Lab Routine Low iron Expected: 11/02/2023 (Approximate), Expires: 11/01/2024 [facility] Work Phone: Comment on above: Expected: 11/02/2023 (Approximate), Expires: 11/01/2024 Start: 11-02-2023 End: 11-01-2024 Lipid 1996 panel - Serum or Plasma Lipid Panel Lab Routine Screening cholesterol level Expected: 11/02/2023 (Approximate), Expires: 11/01/2024 [facility] Work Phone: Comment on above: Expected: 11/02/2023 (Approximate), Expires: 11/01/2024 Start: 10-18-2023 End: 10-17-2024 Follitropin [Units/volume] in Serum or Plasma Follicle Stimulating Hormone Lab Routine PMDD (premenstrual dysphoric disorder) Expected: 10/18/2023, Expires: 10/17/2024 [facility] Service Area Work Phone: Comment on above: Expected: 10/18/2023 , Expires: 10/17/2024 Start: 10-18-2023 End: 10-17-2024 TSH with reflex to Free T4 if abnormal TSH with reflex to Free T4 if abnormal Lab Routine PMDD (premenstrual dysphoric disorder) Expected: 10/18/2023 (Approximate), Expires: 10/17/2024 [facility] Work Phone: Comment on above: Expected: 10/18/2023 (Approximate), Expires: 10/17/2024 Start: 09-21-2023 End: 09-21-2023 Patient encounter procedure 09/21/2023 4:00 PM EDT Office Visit [facility] [address] [place] [phone] Franny Armendariz, PREPAROLE COUNSELING AIDE-HOME CARE LIAISON [address] [facility] [address] [place] [address] [facility] Start: 05-15-2023 Patient encounter procedure ANNUAL, Provider: Jacy Boone, Status: Pen, Time: 3:[address] Work Phone: Start: 11-14-2022 Diabetes mellitus screening Diabetes Screening [facility] Start: 11-04-2022 COVID-19 Vaccine ( season) COVID-19 Vaccine ( season) [facility] Start: 11-04-2022 Influenza vaccination Influenza Vacc ine (#1) [facility] Start: 09-12-2022 End: 09-13-2023 25-hydroxyvitamin D3 [Mass/volume] in Serum or Plasma Vitamin D 25-Hydroxy,Total Lab Routine Vitamin D insufficiency Expected: 09/12/2022 (Approximate), Expires: 09/13/2023 [facility] Service Area Work Phone: Comment on above: Expected: 09/12/2022 (Approximate), Expires: 09/13/2023 Start: 09-12-2022 FUV, Provider: Franny Armendariz, Status: Pen, Time: 8:45 AM FUV, Provider: Franny Armendariz, Status: Pen, Time: 8:45 AM [facility] Work Phone: Start: 03-30-2022 Patient encounter procedure [employer] Start: 03-15-2022 EPV, Provider: Franny Armendariz, Status: Pen, Time: 8:15 AM EPV, Provider: Franny Armendariz, Status: Pen, Time: 8:15 AM [facility] Work Phone: Start: 01-17-2022 EPV, Provider: Rayna Carolina, Status: Pen, Time: 4:00 PM EPV, Provider: Rayna Carolina, Status: Pen, Time: 4:00 PM [facility] Work Phone: Start: 12-20-2021 FUV, Provider: Franny Armendariz, Status: Pen, Time: 4:00 PM FUV, Provider: Franny Armendariz, Status: Pen, Time: 4:00 PM [facility] Work Phone: Start: 12-20-2021 Patient encounter procedure [facility] Start: 09-22-2021 Patient encounter procedure [employer] Start: 09-22-2021 POV, Provider: July iNx, Status: Pen, Time: 3:45 PM POV, Provider: July Nix, Status: Pen, Time: 3:[address] Work Phone: Start: 09-09-2021 Patient encounter procedure [facility] Start: 08-17-2021 FUV, Provider: July Nix, Status: Pen, Time: 2:45 PM FUV, Provider: July Nix, Status: Pen, Time: 2:45 PM [place] [id number] [facility] Work Phone: Start: 08-03-2021 VIRFUVHOME, Provider : Franny Armendariz, Status: Pen, Time: 4:00 PM [facility], Provider: Franny Armendariz, Status: Pen, Time: 4:00 PM [place] [address] [facility] Work Phone: Start: 08-03-2021 BXENDO, Provider: July Nix, Status: Pen, Time: 3:15 PM BXENDO, Provider: July Nix, Status: Pen, Time: 3:15 PM [place] [address] [facility] Work Phone: Start: 07-21-2021 FUV, Provider: July Nix, Status: Pen, Time: 3:45 PM FUV, Provider: July Nix, Status: Pen, Time: 3:45 PM [place] [address] [facility] Work Phone: Start: 04-26-2021 VIRFUVHOME, Provider : Rayna Carolina, Status: Pen, Time: 3:00 PM VIR[facility]UVHOME, Provider: Rayna Carolina, Status: Pen, Time: 3:00 PM [facility] Work Phone: Start: 03-29-2021 Patient encounter procedure ANNUAL, Provider: July Nix, Status: Pen, Time: 3:30 PM [facility] Work Phone: Start: 03-24-2021 COVID-19 Vaccine (4 - Booster for Moderna series) COVID-19 Vaccine (4 - Booster for Moderna series) [facility] Start: 12-23-2020 FUV, Provider: Emily Marcum, Status: Pen, Time: 9:30 AM FUV, Provider: Emily Marcum, Status: Pen, Time: 9:30 AM [facility] Work Phone: Start: 11-14-2020 Diabetes mellitus screening Diabetes Screening [facility] Start: 02-21-2008 Screening for malign ant neoplasm of cervix [facility] Start: 2006 Hepatitis B Vaccines (1 of 3 - 19+ 3-dose series) Hepatitis B Vaccines (1 of 3 - 19+ 3-dose series) [facility] Start: 02-21-2000 Varicella vaccination Varicell a Vaccines (1 of 2 - 13+ 2-dose series) [facility] Start: 02-21-1988 MMR Vaccines (1 of 1 - Standard series) MMR Vaccines (1 of 1 - Standard series) [facility] Start: 02-21-1988 Varicella vaccination Varicell a Vaccines (1 of 2 - 2-dose childhood series) [facility] Start: 1987 Hepatitis B Vaccines (1 of 3 - 3-dose series) Hepatitis B Vaccines (1 of 3 - 3-dose series) [facility] Start: 1987 Yearly Adult Physical Yearly Adult P hysical [facility] H/O: section History of 2 sections [facility] H/O: surgery [facility] History of tonsillectomy History of tonsillectomy [facility] Past history of procedure Status post hysteroscopy [facility] Skin cyst Skin cyst [facility] Hughes teeth extracted Hughes teeth extra cted [facility] Immunizations Immunization Date Immunization Notes Care Provider Elaina white 01-27-2021 Moderna COVID-19 Vaccine 100 MCG/0.5ML Intramuscular Suspension Emily Marcum Work Phone: [facility] Work Phone: 01-15-2021 influenza, injectabl e, quadrivalent, contains preservative Franny Armendariz [employer] COUNSELING AIDE-HOME CARE LIAISON Work Phone: [facility] Work Phone: 01-15-2021 influenza, injectabl e, quadrivalent, preservative free; Translations: [Flulaval Quadrivalent 0.5 ML Intramuscular Suspension Prefilled Syringe] Emily Marcum Work Phone: [facility] Work Phone: Comment on above: Series: 01-15-2021 influenza virus vaccine, unspecified formulation Franny Armendariz [employer] COUNSELING AIDE-HOME CARE LIAISON Work Phone: [facility] Work Phone: 06-19-2020 Moderna COVID-19 Vaccine 100 MCG/0.5ML Intramuscular Suspension Emily L Trixie Work Phone: [facility] Work Phone: 05-21-2020 Moderna COVID-19 Vaccine 100 MCG/0.5ML Intramuscular Suspension Emily L Trixie Work Phone: [facility] Work Phone: 11-15-2019 influenza, injectabl e, quadrivalent, preservative free Emily L Trixie Work Phone: [facility] Work Phone: 11-15-2019 tetanus toxoid, redu annie diphtheria toxoid, and acellular pertussis vaccine, adsorbed Emily L Trixie Work Phone: [facility] Work Phone: 12-31-2018 Influenza, injectabl e, Madin [place] Canine Kidney, quadrivalent with preservative Emily L Trixie Work Phone: [facility] Work Phone: 01-06-2018 Influenza, injectabl e, Madin Jasmina Canine Kidney, preservative free, quadrivalent Emily L Trixie Work Phone: [facility] Work Phone: 08-18-2015 tetanus toxoid, redu annie diphtheria toxoid, and acellular pertussis vaccine, adsorbed Emily L Trixie Work Phone: [facility] Work Phone: Payers Date Payer Category Payer Self-pay 2015 [employer] [facility] Care [facility] [id number] 2015 Unknown 2015 Unknown [id number] 1987 Unknown [id number] 2.16840.1.694004.3.579. 2. 1987 Unknown [id number] 2.16840.1.322380.3.579. 2.356 1987 Unknown [id number] 2.840.1.025205.3.579. 2. 1987 Unknown [id number] 2.16840.1.740477.3.579. 2.356 1987 Unknown [id number] 2.16840.1.958158.3.579. 2. 1987 Unknown [id number] 2.16840.1.943054.3.579. 2.356 1987 Unknown [id number] 2.16840.1.185742.3.579. 2. 1987 Unknown [id number] 2.16840.1.181063.3.579. 2.356 1987 Unknown [id number] 2.16840.1.458010.3.579. 2. 1987 Unknown [id number] 2.16840.1.703350.3.579. 2. 1987 Unknown [id number] 2.16840.1.923845.3.579. 2. 1987 Unknown [id number] 2.16.840.1.803766.3.579. 2.1068 1987 Unknown [id number] 2.16.840.1.821338.3.579. 2.1068 1987 Unknown [id number] 2.16.840.1.634578.3.579. 2.1068 1987 Unknown [id number] 2.16.840.1.236326.3.579. 2.1068 1987 Unknown [id number] 2.16.840.1.540769.3.579. 2.1068 1987 Unknown [id number] 2.16.840.1.330809.3.579. 2.1068 1987 Unknown [id number] 2.16.840.1.976055.3.579. 2.1068 1987 Unknown [id number] 2.16.840.1.451252.3.579. 2.1244 1987 Unknown [id number] 2.16.840.1.603534.3.579. 2.1244 1987 Unknown [id number] 2.16.840.1.284081.3.579. 2.1243 1987 Unknown [id number] 2.16.840.1.873264.3.579. 2.1243 1987 Unknown [id number] 2.16.840.1.554384.3.579. 2.1243 1987 Unknown [id number] 2.16.840.1.275361.3.579. 2.1243 1987 Unknown [id number] 2.16.840.1.725744.3.579. 2.1243 1987 Unknown [id number] 2.16.840.1.752409.3.579. 2.1243 1987 Unknown [id number] 2.16.840.1.219914.3.579. 2.1244 1987 Unknown [id number] 2.16.840.1.751931.3.579. 2.1243 1987 Unknown [id number] 2.16.840.1.859222.3.579. 2.1243 1987 Unknown [id number] 2.16.840.1.625915.3.579. 2.1243 1987 Unknown [id number] 2.16.840.1.976587.3.579. 2.1243 1987 Unknown [id number] 2.16.840.1.014923.3.579. 2.3 1987 Unknown [id number] 2.16.840.1.599384.3.579. 2.1243 1987 Unknown [id number] 2.16.840.1.581378.3.579. 2.1243 1987 Unknown [id number] 2.16.840.1.027137.3.579. 2.1243 1987 Unknown [id number] 2.16.840.1.184128.3.579. 2.1243 Unknown [id number] 2.16.840.1.934433.3.579. 2.462 Unknown [id number] 2.16.840.1.248846.3.579. 2.462 Unknown [id number] 2.16.840.1.856547.3.579. 2.462 Social History Date Type Detail Facility Start: 09-12-2022 End: 04-02-2024 Former smoker Former smoker [facility] Work Phone: Comment on above: WINE, 1-2 TIMES PER MONTH; Tobacco smoking consumption unknown [facility] Start: 09-12-2022 End: 04-02-2024 Patient Health Questionnaire 2 item (PHQ-2) [Reported] [facility] Work Phone: Start: 1985 [facility] Start: 09-02-2022 End: 06-21-2024 Exposure to SARS-CoV-2 (event) Not sure [facility] Start: 10-18-2023 Tobacco smoking stat us NHIS Never smoked tobacco [facility] Start: 10-18-2023 Tobacco use and exposure Smokeless tobacco non-user [facility] Work Phone: Start: 10-18-2023 End: 06-21-2024 Alcoholic beverage intake Ex-drinker (finding) [facility] Work Phone: NEGATED: Highlighted row - - [address] Work Phone: NEGATED: Highlighted rowStart: MARICELF History of tobacco use Passive smoker [facility] Work Phone: Functional Status Date Assessment Result Facility 04-26-2021 PHQ-9 [id number] In Remission (0-4) [facility] Work Phone: 04-12-2021 PHQ-9 Adult Depressi on Score PHQ-9 Adult Depression Score 18 [facility] Work Phone: Comment on above: Q1: 3, Q2: 3, Q3: 0, Q4: 3, Q5: 3, Q6: 3, Q7: 3, Q8: 0, Q9: 0, NEGATED: Highlighted row Functional performance Functional status health issues are not documented Disease [address] Work Phone: Mental Status Date Assessment Result Facility NEGATED: Highlighted row Cognitive function [Interpretation] Cognitive status health issues are not documented Disease [address] Work Phone: Clinical Notes 04-26-2019 to 06-21-2024 SUSY Naranjo - 06/21/2024 9:05 AM EDTDiserumrge InstructionsAttachSUSY Olsen - 06/14/2024 4:44 PM SUSY White - 06/14/2024 4:44 PM EDT Note Date & Type Note Facility 06-21-2024 History of Present illness Narrative [facility] Shahnaz Esparza, [employer] COUNSELING AIDE-HOME CARE LIAISON Visit Note - 06/21/2024 9:26 AM This note was generated with voice recognition software and may contain errors including spelling, grammar, syntax, and misrecognization of what was dictated. Patient: Basilia Coronado, , 39 y.o., female PCP: Juan Wynn MD ---- ALLERGIES: Allergies[1] CURRENT MEDICATIONS: Current Outpatient Medications Medication Instructions citalopram (CELEXA) 20 mg, oral, Daily, Take in conjunction with 10mg tablet for a total of 30mg daily. citalopram (CELEXA) 10 mg, oral, Daily, Take in conjunction with 20mg tablet for a total of 30mg daily. cyclobenzaprine (FLEXERIL) 10 mg, oral, Every 8 hours PRN, *caution - can cause drowsiness* multivitamin tablet Take by mouth. naproxen (NAPROSYN) 500 mg, oral, Every 12 hours PRN, Take with a meal. ---- PAST MEDICAL HX: Problem List[2] SURGICAL HX: Surgical History[3] FAMILY HX: No pertinent history. SOCIAL HX: reports that she has never smoked. She has never been exposed to tobacco smoke. She has never used smokeless tobacco. ; has children. has vasectomy. ---- CHIEF COMPLAINT: Chief Complaint Patient presents with Back Pain Back pain x 1 week HISTORY OF PRESENT ILLNESS: The history was obtained from patientMia Cui is a 39 y.o. female, who presents with a chief complaint of R hip/buttock pain - reports she ended up going back to the ER on 06/14/24 due to her worsening symptoms, and XR's showed bilateral pars defects at L5 with a mild 1 cm anterolisthesis L5 on S1. She was given IM Norflex and Solumedrol, and referred to Ortho - has appt on 06/27/24. She reports pain has improved slightly since then, but she continues to have cramping pain in her leg and buttock - pain continues to radiate down to her ankle. Sxs are worst at the end of the day. Is able to sleep at night, but reports it still takes some time to get comfortable. Denies any numbness/tingling and saddle anesthesia; denies any bowel/bladder dysfunction. No other body aches, fevers/chills, malaise, rashes, or other symptoms. Reports was taking Flexeril PRN and naproxen PRN, with good results, but running low on both - requesting refills. Has also been using a TENS unit and applying ice, with some improvement in symptoms. Denies any possibility of - has vasectomy. REVIEW OF SYSTEMS: 10 systems reviewed negative with exception of history of present illness as listed above. TODAY'S VITALS: BP 112/71 Pulse 91 Temp 37.1 C (98.8 F) Resp 18 Ht 1.676 m (5' 6) Wt 72.6 kg (160 lb) SpO2 100% BMI 25.82 kg/m PHYSICAL EXAMINATION: General: Pleasant female, alert and oriented, in no acute distress. Respiratory: Lungs are clear to auscultation; no wheezes, rhonchi, or rales. Respirations unlabored and without reported discomfort, Breath sounds are equal, Symmetrical chest wall expansion. Cardiovascular: Regular rate and rhythm, Normal S1S2, no m/r/g. Musculoskeletal: Ambulates with limping, somewhat antalgic gait (although improved from previous visit); is still cautious with position changes. Seems reluctant to put full pressure on R leg/buttock when sitting. L knee/ankle/hip unremarkable. No tenderness to lumbo/sacral spine; no step-off or deformity noted. R leg: has tenderness over R buttock/lumbosacral paraspinal area. Has nearly full ROM R hip and knee, but pain with testing, and moderate pain over R buttock especially with extension of leg. Calves soft/nontender. N/V intact proximally and distally. No saddle anesthesia. Neurologic: Alert and oriented, no focal deficits, no motor or sensory deficits aside from as noted above. Cognition and Speech: Oriented, Speech clear and coherent. Psychiatric: Cooperative, Appropriate mood & affect. ---- Medical Decision Making LABORATORY or RADIOLOGICAL IMAGING ORDERS/RESULTS: None IMPRESSION/PLAN: Course: stable 1. Anterolisthesis of lumbosacral spine (Primary) - cyclobenzaprine (Flexeril) 10 mg tablet; Take 1 tablet (10 mg) by mouth every 8 hours if needed (for muscle spasms/pain). *caution - can cause drowsiness* Dispense: 12 tablet; Refill: 0 - naproxen (Naprosyn) 500 mg tablet; Take 1 tablet (500 mg) by mouth every 12 hours if needed (pain/inflammation). Take with a meal. Dispense: 28 tablet; Refill: 0 No red flags on exam today. Patient reports slight improvement in sxs since her ER visit, when she had imaging that showed bilat pars defects at L5 with a mild 1 cm anterolisthesis at L5 on S1. She has appt with Ortho scheduled for 06/27/24. Encouraged to continue to rest, use ice for comfort, and will refill Naproxen 500 mg q12 hours as needed for management of discomfort/inflammation - advised can continue to add Tylenol PRN as adjunct. Will also refill Flexeril for PRN use - urged caution - can caused drowsiness. Reviewed red flags to monitor for, counseled on potential adverse reactions of treatment, expectations for improvement in symptoms, and advised to seek care if symptoms worsen or if any red flags develop prior to her appt with Ortho. Pt verbalized understanding of discussion and agreed with plan of care; questions were encouraged and answered. Shahnaz Esparza APRN-HOME CARE LIAISON Advanced Practice Provider [facility] [1] No Known Allergies [2] Patient Active Problem List Diagnosis Allergic rhinitis Depression, major, single episode, moderate (Multi) Elevated blood sugar Fatigue GERD (gastroesophageal reflux disease) Heart palpitations Herpes simplex type 2 infection Mild depression OAB (overactive bladder) Overweight (BMI 25.0-29.9) PMDD (premenstrual dysphoric disorder) [3] Past Surgical History: Procedure Laterality Date ENDOMETRIAL ABLATION 09/09/2021 OTHER SURGICAL HISTORY 01/21/2019 Ankle surgery OTHER SURGICAL HISTORY 01/21/2019 Oral surgery OTHER SURGICAL HISTORY 01/21/2019 Tonsillectomy OTHER SURGICAL HISTORY 01/21/2019 Ovarian cystectomy OTHER SURGICAL HISTORY 02/25/2020 section OTHER SURGICAL HISTORY 06/28/2019 Dilation and curettage documented in this encounter [facility] Work Phone: 06-14-2024 Hospital Discharge instructions SUSY Tillman - 06/14/2024 5:58 PM EDT Continue flexeril and naprosyn and tylenol at home The following attachments cannot be sent through Care Everywhere.Sciatica Exercises (Eritrean)Sciatica ED (Eritrean)Spondylolisthesis Discharge Instructions (Eritrean)documented in this encounter [facility] Work Phone: 06-14-2024 Physician Emergency department Note Chief Complaint Patient presents with Back Pain Pt seen yesterday for back pain and right hip pain since Monday. Patient History Past Medical History: Diagnosis Date Encounter for gynecological examination (general) (routine) without abnormal findings Pap test, as part of routine gynecological examination Other conditions influencing health status Menarche Other conditions influencing health status History of Past Surgical History: Procedure Laterality Date ENDOMETRIAL ABLATION 09/09/2021 OTHER SURGICAL HISTORY 01/21/2019 Ankle surgery OTHER SURGICAL HISTORY 01/21/2019 Oral surgery OTHER SURGICAL HISTORY 01/21/2019 Tonsillectomy OTHER SURGICAL HISTORY 01/21/2019 Ovarian cystectomy OTHER SURGICAL HISTORY 02/25/2020 section OTHER SURGICAL HISTORY 06/28/2019 Dilation and curettage Family History Problem Relation Name Age of Onset Hypertension Mother Ulcerative colitis Father Hypertension Brother Diabetes Brother Diabetes Other Grandparent Hypertension Other Grandparent Cancer Other Grandparent Ovarian cancer Mother's Sister 54 Social History Social History Narrative Not on file No Known Allergies PMH: Reviewed PSH: Reviewed Social History: Reviewed. Allergies reviewed. HPI: Basilia Coronado is a 39 y.o. female who presents to the ED today accompanied by mom with complaints of right hip and lower back pain. States it started 2 days ago. She was doing a workout when she first noticed that she was getting sore and fatigued. States she continued with a workout with stretching using a band. No specific injury to the right lower back. Woke up the next morning was having difficulty walking. Came to the ED last night for evaluation but left without her treatment complete. Went to urgent care this morning and was prescribed Naprosyn, Flexeril and also instructed to take Tylenol. States that she took all of his medications and the pain is not getting any better. No loss of bowel or bladder control. No saddle anesthesia. Denies chance of . PHYSICAL EXAM: GENERAL: Vitals noted, no distress. Alert and oriented x 3. Non-toxic. HEAD: Normocephalic, atraumatic. Pupils equally round and reactive to light. EOMI. NECK: Supple. No midline or paraspinal tenderness through full range of motion. CARDIAC: Regular rate, rhythm. No murmurs or rubs. RESPIRATORY: Lungs clear and equal bilaterally. No respiratory distress. MUSCULOSKELETAL & SKIN: Warm, dry, and intact. No rash/lesions. No peripheral edema. No spinal tenderness to palpation. No step-off or deformity noted. No swelling, ecchymosis, erythema of the right buttocks. Full range of motion of the right hip noted. Distal cap refills less than 2 seconds, pedal pulse 2+ and bounding. NEURO: No focal neurologic deficits, acting appropriately. Labs Reviewed - No data to display XR lumbar spine 2-3 views Final Result Bilateral pars defects at L5 with a mild 1 cm anterolisthesis L5 on S1. Signed by: Rock Yoon 06/14/2024 4:52 PM Dictation workstation: [id number] XR hip right with pelvis when performed 2 or 3 views Final Result Normal radiographs right hip. Signed by: Rock Yoon 06/14/2024 4:52 PM Dictation workstation: [id number] Medical Decision Making ED COURSE: This patient was seen and examined by myself independently. No evidence of cauda equina. Suspect sciatica. Given IM Norflex and IM Solu-Medrol. Sent for x-ray imaging the lumbar spine and right hip and pelvis. Imaging as noted above. She is made aware of the bilateral pars defects at L5 with a mild 1 cm anterolisthesis L5 on S1. Printed copy of the results given to the patient by her request. She is referred to orthopedics for back specialist as well as her primary care physician. Feeling much improved with the above medications given. Advised to continue her Flexeril, Naprosyn, Tylenol at home. Return to ED for any new or worsening symptoms. Discharged home in stable condition with computer instructions given. DIAGNOSTIC IMPRESSION: #1 right lower back pain with sciatica #2 pars defect with anterolisthesis SUSY Tillman 06/14/24 1800 [facility] Work Phone: 06-14-2024 Emergency department Note Chief Complaint Patient presents with Back Pain Pt seen yesterday for back pain and right hip pain since Monday. Patient History Past Medical History: Diagnosis Date Encounter for gynecological examination (general) (routine) without abnormal findings Pap test, as part of routine gynecological examination Other conditions influencing health status Menarche Other conditions influencing health status History of Past Surgical History: Procedure Laterality Date ENDOMETRIAL ABLATION 09/09/2021 OTHER SURGICAL HISTORY 01/21/2019 Ankle surgery OTHER SURGICAL HISTORY 01/21/2019 Oral surgery OTHER SURGICAL HISTORY 01/21/2019 Tonsillectomy OTHER SURGICAL HISTORY 01/21/2019 Ovarian cystectomy OTHER SURGICAL HISTORY 02/25/2020 section OTHER SURGICAL HISTORY 06/28/2019 Dilation and curettage Family History Problem Relation Name Age of Onset Hypertension Mother Ulcerative colitis Father Hypertension Brother Diabetes Brother Diabetes Other Grandparent Hypertension Other Grandparent Cancer Other Grandparent Ovarian cancer Mother's Sister 54 Social History Social History Narrative Not on file No Known Allergies PMH: Reviewed PSH: Reviewed Social History: Reviewed. Allergies reviewed. HPI: Basilia Coronado is a 39 y.o. female who presents to the ED today accompanied by mom with complaints of right hip and lower back pain. States it started 2 days ago. She was doing a workout when she first noticed that she was getting sore and fatigued. States she continued with a workout with stretching using a band. No specific injury to the right lower back. Woke up the next morning was having difficulty walking. Came to the ED last night for evaluation but left without her treatment complete. Went to urgent care this morning and was prescribed Naprosyn, Flexeril and also instructed to take Tylenol. States that she took all of his medications and the pain is not getting any better. No loss of bowel or bladder control. No saddle anesthesia. Denies chance of . PHYSICAL EXAM: GENERAL: Vitals noted, no distress. Alert and oriented x 3. Non-toxic. HEAD: Normocephalic, atraumatic. Pupils equally round and reactive to light. EOMI. NECK: Supple. No midline or paraspinal tenderness through full range of motion. CARDIAC: Regular rate, rhythm. No murmurs or rubs. RESPIRATORY: Lungs clear and equal bilaterally. No respiratory distress. MUSCULOSKELETAL & SKIN: Warm, dry, and intact. No rash/lesions. No peripheral edema. No spinal tenderness to palpation. No step-off or deformity noted. No swelling, ecchymosis, erythema of the right buttocks. Full range of motion of the right hip noted. Distal cap refills less than 2 seconds, pedal pulse 2+ and bounding. NEURO: No focal neurologic deficits, acting appropriately. Labs Reviewed - No data to display XR lumbar spine 2-3 views Final Result Bilateral pars defects at L5 with a mild 1 cm anterolisthesis L5 on S1. Signed by: Rock Yoon 06/14/2024 4:52 PM Dictation workstation: [id number] XR hip right with pelvis when performed 2 or 3 views Final Result Normal radiographs right hip. Signed by: Rock Yoon 06/14/2024 4:52 PM Dictation workstation: [id number] Medical Decision Making ED COURSE: This patient was seen and examined by myself independently. No evidence of cauda equina. Suspect sciatica. Given IM Norflex and IM Solu-Medrol. Sent for x-ray imaging the lumbar spine and right hip and pelvis. Imaging as noted above. She is made aware of the bilateral pars defects at L5 with a mild 1 cm anterolisthesis L5 on S1. Printed copy of the results given to the patient by her request. She is referred to orthopedics for back specialist as well as her primary care physician. Feeling much improved with the above medications given. Advised to continue her Flexeril, Naprosyn, Tylenol at home. Return to ED for any new or worsening symptoms. Discharged home in stable condition with computer instructions given. DIAGNOSTIC IMPRESSION: #1 right lower back pain with sciatica #2 pars defect with anterolisthesis SUSY Tillman 06/14/24 1800 documented in this encounter [facility] Work Phone: 06-14-2024 History of Present illness Narrative [facility] SUSY Naranjo Visit Note - 06/14/2024 9:39 AM This note was generated with voice recognition software and may contain errors including spelling, grammar, syntax, and misrecognization of what was dictated. Patient: Basilia Coronado, , 39 y.o., female PCP: Juan Wynn MD ---- ALLERGIES: No Known Allergies CURRENT MEDICATIONS: Current Outpatient Medications Medication Instructions citalopram (CELEXA) 20 mg, oral, Daily, Take in conjunction with 10mg tablet for a total of 30mg daily. citalopram (CELEXA) 10 mg, oral, Daily, Take in conjunction with 20mg tablet for a total of 30mg daily. cyclobenzaprine (FLEXERIL) 10 mg, oral, Every 8 hours PRN, *caution - can cause drowsiness* multivitamin tablet Take by mouth. naproxen (NAPROSYN) 500 mg, oral, Every 12 hours PRN, Take with a meal. ---- PAST MEDICAL HX: Patient Active Problem List Diagnosis Allergic rhinitis Depression, major, single episode, moderate (Multi) Elevated blood sugar Fatigue GERD (gastroesophageal reflux disease) Heart palpitations Herpes simplex type 2 infection Mild depression OAB (overactive bladder) Overweight (BMI 25.0-29.9) PMDD (premenstrual dysphoric disorder) SURGICAL HX: Past Surgical History: Procedure Laterality Date ENDOMETRIAL ABLATION 09/09/2021 OTHER SURGICAL HISTORY 01/21/2019 Ankle surgery OTHER SURGICAL HISTORY 01/21/2019 Oral surgery OTHER SURGICAL HISTORY 01/21/2019 Tonsillectomy OTHER SURGICAL HISTORY 01/21/2019 Ovarian cystectomy OTHER SURGICAL HISTORY 02/25/2020 section OTHER SURGICAL HISTORY 06/28/2019 Dilation and curettage FAMILY HX: No pertinent history. SOCIAL HX: reports that she has never smoked. She has never been exposed to tobacco smoke. She has never used smokeless tobacco. . Has kids. ---- CHIEF COMPLAINT: Chief Complaint Patient presents with Gluteal Pain Rt sided gluteal pain x 3 days ago after working out HISTORY OF PRESENT ILLNESS: The history was obtained from patient. Basilia is a 39 y.o. female, who presents with a chief complaint of R buttock pain - reports she has been trying to start working out again, and did a lot of squats/band exercises on Monday. She did not have any discomfort or known injury during/immediately after her workout, but felt a little tightness in her R gluteal area that night, and when she woke up on Monday AM, pain had progressed significantly, and has persisted without much change since then, depending on her activities. Pain scale currently 6.5-7/10 at rest, and 10/10 with certain activities - reports it hurts in her gluteal area when she sits, stands, lays. Is able to sleep at night, but reports it takes some time to get comfortable. Describes pain as alternately aching, throbbing, burning, sharp, cramping, etc with occasional discomfort that radiates into the outside of her hip/thigh/lower leg. Has not noticed locking/catching sensation, but reports feels cwyizhl-nhenu-dkxm discomfort, at times. No numbness or neurovascular symptoms. No other body aches, fevers/chills, malaise, rashes, or other symptoms. Has tried ice baths, a foam roller, and tylenol/ibuprofen (last dose was yesterday), without much relief. REVIEW OF SYSTEMS: 10 systems reviewed negative with exception of history of present illness as listed above. TODAY'S VITALS: BP 125/85 (BP Location: Right arm, Patient Position: Sitting, BP Cuff Size: Adult) Pulse 89 Temp 36.7 C (98.1 F) (Temporal) Resp 16 Ht 1.676 m (5' 6) Wt 70.3 kg (155 lb) SpO2 98% BMI 25.02 kg/m PHYSICAL EXAMINATION: General: Pleasant female, alert and oriented, in no acute distress. Respiratory: Lungs are clear to auscultation; no wheezes, rhonchi, or rales. Respirations unlabored and without reported discomfort, Breath sounds are equal, Symmetrical chest wall expansion. Cardiovascular: Regular rate and rhythm, Normal S1S2, no m/r/g. Musculoskeletal: Ambulates with limping, antalgic gait; is cautious with position changes. Seems reluctant to put full pressure on R leg. L knee/ankle/hip unremarkable. R leg: has tenderness over R glute/piriformis/SI area; no visible/palpable edema, discoloration, rashes, or obvious joint deformity. Has nearly full flexion/extension of R hip and knee, but pain with testing, and moderate pain over R gluteus dillan with resisted extension of leg. Good plantar/dorsiflexion. No tenderness to lateral aspect of hip/thigh/knee; has nearly FROM ankle and knee but has pain in R glute with testing. 5/5 motor strength of R leg, but pain with testing. N/V intact proximally and distally. No saddle anesthesia. Neurologic: Alert and oriented, no focal deficits, no motor or sensory deficits aside from as noted above. Cognition and Speech: Oriented, Speech clear and coherent. Psychiatric: Cooperative, Appropriate mood & affect. ---- Medical Decision Making LABORATORY or RADIOLOGICAL IMAGING ORDERS/RESULTS: None IMPRESSION/PLAN: Course: Worsening; stable 1. Muscle strain of gluteal region, right, initial encounter (Primary) - naproxen (Naprosyn) 500 mg tablet; Take 1 tablet (500 mg) by mouth every 12 hours if needed (pain/inflammation). Take with a meal. Dispense: 20 tablet; Refill: 0 - cyclobenzaprine (Flexeril) 10 mg tablet; Take 1 tablet (10 mg) by mouth every 8 hours if needed (for muscle spasms/pain). *caution - can cause drowsiness* Dispense: 12 tablet; Refill: 0 Sxs consistent with gluteal strain. No systemic symptoms; no known acute injury but suspect overuse-type problem related to recent workout (squats/band exercises). Imaging deferred today, but may need to consider if not improving over the next 2-3 days. Encouraged to rest, elevate, continue ice/heat for comfort, and will start Naproxen 500 mg q12 hours as needed for management of discomfort/inflammation - advised can add Tylenol PRN as adjunct. Will also start Flexeril for PRN use - urged caution - can caused drowsiness. Reviewed red flags to monitor for, counseled on potential adverse reactions of treatment, expectations for improvement in symptoms, and advised to seek care if symptoms worsen or if any red flags develop. Pt verbalized understanding of discussion and agreed with plan of care; questions were encouraged and answered. SUSY Naranjo Advanced Practice Provider [facility] documented in this encounter [facility] Work Phone: 05-04-2024 History of Present illness Narrative Images from the original note were not included. I performed this visit using real-time telehealth tools, including an audio/video OR telephone connection between the patient listed who was located in the [facility] and myself, Viridiana Cunningham (Board certified in the [facility]).At the start of the visit, I introduced myself as Dr. Sood and verified the patients name, , and current physical location. If they were currently outside of the state of [place], the visit was ended and the patient was referred to alternative means for evaluation and treatment. The patient was made aware of the limitations of the telehealth visit. They will not be physically examined and all issues may not be appropriate for a telehealth visit. If necessary, an in- In preparing for this visit and writing this note, I reviewed previous electronic medical records (labs, imaging and medical charts) of the patient available in the physician portal. Significant findings which helped in decision making are recorded in this encounter charting. All allergies were reviewed with the patient and all medications reconciled verbally with the patient at the beginning oft the visit. Chief complaint: Rash x ~1 week-- Started with small area on abdomen each day it is more-- in scalp--starting on side of face now Big patch on the back-that started 3 weeks ago-- Had a viral cold a few weeks ago-- On chest-- neck--back It is itchy--has allergy med she can take No flu like sxs assoc with this-- a few weeks ago had chills No N.V.D All other ROS (-) General appearance: Vitals available from patient? no Alert, oriented, pleasant, in no apparent distress? yes Answers questions appropriately? yes Eyes clear? yes Is patient in respiratory distress? no Throat exam: not available Is patient coughing during consult: no Audible wheezing noted? : no Pt sounds congested?: no Sniffing or rhinorrhea?: no Psychiatric: Affect normal? yes Other relevant physical exam: Assessment and Plan: Pityriasis Rosea Discussed possible viral etiology-- Not contagious Symptomatic treatment-- OTC hydrocortisone cream prn--oral antihistamines Moisturizer may help Discussed with patient during visit differential diagnosis; viral versus bacterial infection; (if relevant); use of medications prescribed and possible side effects; appropriate joiu-jlk-ttmtzwo medications; possible complications ; when to follow-up for in person evaluation. All patient's questions were answered. Patient has good decision making capacity. They are alert to person, place, time and situation. Patient has the ability to communicate choice, understand information, consequences, and reason rationally. If sent for in person care at UC or ED, I explained why Urgent in person exam was necessary and that failure to have further evaluation, and treatment today may lead to, negative outcomes, permanent disability, or even . If not sent for in person care today, follow-up with your PCP in 2-3 days, sooner if not improving. Follow-up immediately if symptoms worsen. If experiencing symptoms including but not limited to lethargy / chest pain / weakness / dizziness / difficulty breathing please call 911 or go to the closest emergency department for immediate care. Limitations to telemedicine include inability to do a complete and accurate physical exam. Any concerns regarding this were conveyed with the patient and in person follow-up recommended if the nature of their concern/illness does not progress as anticipated during this visit. documented in this encounter [facility] Work Phone: 05-04-2024 Instructions Viridiana Sood MD - 05/04/2024 7:40 AM EST Pityriasis Rosea Discussed possible viral etiology-- Not contagious Symptomatic treatment-- OTC hydrocortisone cream prn--oral antihistamines Moisturizer may help Please send me a [email or web address] message if you have any questions or concerns. FOR NON URGENT questions only. Allow up to 72 hours for response. If you have prescription issues or other questions you can email Devan Alvarenga Digital Health Coordinator, at Rest and drink plenty of fluids Tylenol and or motrin as needed for pain and fever (unless you have been told not to take these because of your personal medical history) Discussed options and precautions (complaint specific and may include) Viral versus bacterial infection; use of medications; possible side effects; appropriate cxyd-wez-uguiahe medications; possible complications and /or when to follow-up. if sent for in person care at UC or ED, it was explained why and failure to have higher level of care further evaluation, and treatment today may lead, but is not limited to negative outcomes, permanent disability, or even . All red flags requiring in person care were discussed. If not sent for in person care today, follow-up with your PCP in 2-3 days, sooner if not improving. Follow-up immediately if symptoms worsen. If experiencing symptoms including but not limited to lethargy / chest pain / weakness / dizziness / difficulty breathing please call 911 or go to the emergency department for immediate care. All patient's questions were answered. Patient has good decision making capacity. They are alert to person, place, time and situation. Patient has the ability to communicate choice, understand information, consequences, and reason rationally. To connect with a new PCP please visit [email or web address] or call [phone] documented in this encounter [facility] Work Phone: 04-02-2024 History of Present illness Narrative Subjective: Basilia Coronado is a 39 y.o. female who presents to clinic today for Follow-up (2 WK FU ) She had a delayed period after being seen by Dr. Barahona 03/19/24. She notes that she has been feeling extremely fatigued, she normally does not nap but needed naps this week. Notes worsening brain fog, she's been losing hair. She notes that breast is hurting periodically, had mild soreness this morning. She notes that things have started to get worse over the past couple of months. She forgot her citalopram for a while and notes that she is having GI distress. She feels like she is not emptying. She was off of it for 1.5 weeks. She got back onto it a week ago. Her sons have been sick periodically. Review of Systems Assessment/Plan: Basilia Coronado is a 39 y.o. female who presents to clinic today to address the following issues: 1. Irregular periods FSH FSH Prolactin level Estradiol FSH Tsh With Reflex To Free T4 If Abnormal Prolactin level Estradiol FSH Tsh With Reflex To Free T4 If Abnormal 2. Mastodynia of left breast Follow Up In Primary Care Irregular menses: - Chronic problem, unresolved, new to this provider, requires further workup and treatment - Discussed with pt that with her path her symptoms are not feeling well as well as a family history of premature ovarian failure and new irregular periods despite not being on any contraception we will obtain workup for premature ovarian failure. Labs as above Mastodynia of left breast: Problem improved after menses she had normal breast ultrasound and mammogram as well as normal breast exam done in October 2023. Due to this she does not desire breast exam and I believe this is reasonable when considering the full picture Problem List Items Addressed This Visit None Visit Diagnoses Irregular periods - Primary Relevant Orders FSH Prolactin level Estradiol FSH Tsh With Reflex To Free T4 If Abnormal Mastodynia of left breast There are no Patient Instructions on file for this visit. Follow up: 2 months Return precautions discussed. An After Visit Summary was given to the patient. All questions were answered and patient in agreement with plan. Objective: BP 116/60 Pulse 62 Ht 1.676 m (5' 6) Wt 73.8 kg (162 lb 12.8 oz) SpO2 99% BMI 26.28 kg/m Physical Exam Vitals and nursing note reviewed. Constitutional: General: She is not in acute distress. Appearance: Normal appearance. HENT: Head: Normocephalic and atraumatic. Mouth/Throat: Mouth: Mucous membranes are moist. Eyes: General: No scleral icterus. Right eye: No discharge. Left eye: No discharge. Extraocular Movements: Extraocular movements intact. Conjunctiva/sclera: Conjunctivae normal. Pulmonary: Effort: No respiratory distress. Skin: General: Skin is warm and dry. Neurological: General: No focal deficit present. Mental Status: She is alert and oriented to person, place, and time. Psychiatric: Attention and Perception: Attention normal. Mood and Affect: Mood normal. Speech: Speech normal. Behavior: Behavior normal. Cognition and Memory: Cognition and memory normal. Judgment: Judgment normal. I spent 22 minutes in total time for this visit including all related clinical activities before, during, and after the visit excluding other billable activities/procedure time. Juan Wynn MD documented in this encounter [facility] Work Phone: 03-19-2024 History of Present illness Narrative Subjective Patient ID: Basilia Coronado is a 39 y.o. female who presents for Breast Pain (left). HPI Op dental, t&a, contreras ov cyst, csec x2, ankle cyst. Endomet ablation Hosp-0 Meds mvi, citalopram 30 Nkda Father Alive colits Mother a htn 2 a asthma, 2 a syslic vomiting syndrome and adhd Alc-0 tob quit>10, no illiciot Onset 3 weeks ago left breast stinging to nipple, in last week feels swolen into axilla, feels full with arm down. Forearm tingle into pinkie and ring. Blanco some hardness in upper outer quadrant of the left breast. Tyically pre menstral breast sx but this is different. LMP a couple months ago , was due for second missed cycle a week ago. Menarche 4th grade, m3, no fam hx br cancer(great aunt) Discussed respectful treatment of breast complaining to involve mammogram and ultrasound and typically I refer to general surgery to mender definitive care. In this case I will have him return in 2 weeks after imaging, to initiate care with Dr. Wynn. She has not received any immunizations into that arm recently. No known injury Review of Systems As per HPI Objective BP 112/60 Pulse 67 Wt 71.7 kg (158 lb) SpO2 99% BMI 25.50 kg/m Physical Exam Palpation into axilla shows no adenopathy. No cervical or supraclavicular adenopathy. Is slightly tender in the ulnar groove. 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 Martinez. Differential is broad we will need to check for intrathoracic process, and symptoms could be due to irregular cycle, but most importantly to rule out a malignancy. documented in this encounter [facility] Work Phone: 11-29-2023 History of Present illness Narrative Subjective: Basilia Coronado is a 38 y.o. female who presents to clinic today for Follow-up Basilia noted that she has been feeling much better since the last time she was here. She notes that she is still clenching her jaw. It maybe improved with citalopram initially. b She notes that her mood has significantly improved. She did have some frustration and mood dysfunction with her most recent cycle. She did get surprised more by her cycle. She has not had any side effects. Review of Systems Assessment/Plan: Basilia Coronado is a 38 y.o. female who presents to clinic today to address the following issues: 1. PMDD (premenstrual dysphoric disorder) citalopram (CeleXA) 20 mg tablet citalopram (CeleXA) 10 mg tablet 2. History of clenching of mandible Chronic problem, known to provider -I discussed with patient that it is reasonable to increase citalopram to 30 mg daily. Will send refills to pharmacy for 1 year. I also discussed with her that with her jaw clenching I recommend using a nightguard and splint to help minimize pressure. She will continue to work on other stress reduction techniques as well. Problem List Items Addressed This Visit PMDD (premenstrual dysphoric disorder) - Primary Overview Many years of significant mood dysregulation surrounding menstrual cycle that is starting to dramatically affect personal life. She has not tolerated OCPs well in the past. Relevant Medications citalopram (CeleXA) 20 mg tablet citalopram (CeleXA) 10 mg tablet Other Visit Diagnoses History of clenching of mandible There are no Patient Instructions on file for this visit. Follow up: 1 year or sooner as needed Return precautions discussed. An After Visit Summary was given to the patient. All questions were answered and patient in agreement with plan. Objective: BP 110/70 Ht 1.676 m (5' 6) Wt 70.9 kg (156 lb 6.4 oz) BMI 25.24 kg/m Physical Exam Vitals and nursing note reviewed. Constitutional: General: She is not in acute distress. Appearance: Normal appearance. HENT: Head: Normocephalic and atraumatic. Mouth/Throat: Mouth: Mucous membranes are moist. Eyes: General: No scleral icterus. Right eye: No discharge. Left eye: No discharge. Extraocular Movements: Extraocular movements intact. Conjunctiva/sclera: Conjunctivae normal. Pulmonary: Effort: No respiratory distress. Skin: General: Skin is warm and dry. Neurological: General: No focal deficit present. Mental Status: She is alert and oriented to person, place, and time. Psychiatric: Attention and Perception: Attention normal. Mood and Affect: Mood normal. Speech: Speech normal. Behavior: Behavior normal. Cognition and Memory: Cognition and memory normal. Judgment: Judgment normal. I spent 18 minutes in total time for this visit including all related clinical activities before, during, and after the visit excluding other billable activities/procedure time. Juan Wynn MD documented in this encounter [facility] Work Phone: 11-15-2023 History of Present illness Narrative On Demand Virtual Visit Patient Consent This visit was completed via video conference. All issues as below were discussed and addressed but no physical exam was performed. If it was felt that the patient should be evaluated in clinic than they were directed there. The patient verbally consented to the visit. An interactive audio and video telecommunication system which permits real time communications between the patient (at the originating site) and provider (at the distant site) was utilized to provide this telehealth service. Verbal consent was requested and obtained from Basilia Coronado (or parent if under 18) 11/15/23 for a telehealth visit. I have verbally confirmed with Basilia Coronado (or parent if under 18) that they are physically located in the [facility] during this virtual visit. Subjective Patient ID: Basilia Coronado is a 38 y.o. female who presents for UTI. UTI This is a new problem. The current episode started in the past 7 days. The problem occurs every urination. The problem has been gradually worsening. The pain is moderate. She is Sexually active. There is No history of pyelonephritis. Associated symptoms include frequency and urgency. Pertinent negatives include no hematuria or possible . She has tried nothing for the symptoms. The treatment provided mild relief. Her past medical history is significant for recurrent UTIs. There is no history of a single kidney. Review of Systems Genitourinary: Positive for frequency and urgency. Negative for hematuria. Objective There were no vitals taken for this visit. Physical Exam pt seen via video feed to be in no acute distress All questions were answered and need for follow-up/in person care was reviewed. Assessment/Plan Basilia was seen today for uti. Diagnoses and all orders for this visit: Dysuria - Urinalysis with Reflex Culture and Microscopic; Future documented in this encounter [facility] Work Phone: 11-15-2023 Instructions SUSY Guzman - 11/15/2023 7:50 AM EDT There are things that you can do to keep from getting more infections. These include: ?Drinking more fluid - This can help prevent bladder infections. ?Vaginal estrogen - If you have already been through menopause, your doctor might suggest this. Vaginal estrogen comes in a cream or a flexible ring that you put into your vagina. It can help prevent bladder infections. Other things that might help: ?Avoid spermicides (sperm-killing creams or gels) - Spermicide is a form of control. It seems to increase the risk of bladder infections in some females, especially when used with a diaphragm. If you use spermicide and get a lot of bladder infections, you might want to try switching to a different form of control. ?Urinate right after sex - Some doctors think this helps, because it helps flush out germs that might get into the bladder during sex. There is no proof it works, but it also cannot hurt. If you get a lot of bladder infections, and the above methods have not helped, your doctor might give you antibiotics to help prevent infection. But long-term use of antibiotics has downsides, so doctors usually suggest trying other things first. documented in this encounter [facility] Work Phone: 11-02-2023 History of Present illness Narrative Subjective Patient ID: Basilia Coronado is a 38 y.o. female who presents for pt here for yearly med check (Pt would like screening blood ordered ). HPI Goes by Neda PMDD: Celexa started recently and this is effective. LOW IRON: Chronic, taking intermittently. 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 Denies fam hx colon cancer. Review of Systems Constitutional: Negative. Respiratory: Negative. Cardiovascular: Negative. Gastrointestinal: Negative. Objective BP 120/80 Pulse 80 Ht 1.676 m (5' 6) Wt 73.5 kg (162 lb) SpO2 97% BMI 26.15 kg/m Physical Exam Constitutional: General: She is not in acute distress. Appearance: Normal appearance. She is not ill-appearing. HENT: Head: Normocephalic and atraumatic. Eyes: Extraocular Movements: Extraocular movements intact. Conjunctiva/sclera: Conjunctivae normal. Cardiovascular: Rate and Rhythm: Normal rate. Pulmonary: Effort: Pulmonary effort is normal. Abdominal: General: There is no distension. Musculoskeletal: General: Normal range of motion. Cervical back: Normal range of motion. Skin: General: Skin is warm and dry. Neurological: General: No focal deficit present. Mental Status: She is alert and oriented to person, place, and time. Psychiatric: Mood and Affect: Mood normal. Behavior: Behavior normal. Thought Content: Thought content normal. Judgment: Judgment normal. Assessment/Plan Fasting labs soon. Follow up 1 year or sooner prn. documented in this encounter [facility] Work Phone: 10-18-2023 Evaluation + Plan note Associated Problem(s): PMDD (premenstrual dysphoric disorder) - Chronic problem, unresolved, new to this provider, requires further workup and treatment - Discussed with pt that options included OCPs versus LARC versus different SSRI treatment. Will treat with citalopram 10 mg for 2 weeks then increase to 20 mg. With close follow-up. Additionally recommended counseling and supportive lifestyle changes. [facility] Work Phone: 10-18-2023 Miscellaneous Notes Associated Problem(s): PMDD (premenstrual dysphoric disorder) - Chronic problem, unresolved, new to this provider, requires further workup and treatment - Discussed with pt that options included OCPs versus LARC versus different SSRI treatment. Will treat with citalopram 10 mg for 2 weeks then increase to 20 mg. With close follow-up. Additionally recommended counseling and supportive lifestyle changes. documented in this encounter [facility] Work Phone: 10-18-2023 History of Present illness Narrative Assessment/Plan: Basilia Coronado is a 38 y.o. female who presents to clinic today to address the following issues: 1. Encounter for gynecological examination with abnormal finding 2. PMDD (premenstrual dysphoric disorder) Follicle Stimulating Hormone TSH with reflex to Free T4 if abnormal citalopram (CeleXA) 20 mg tablet Routine gynecological exam within normal limits Pap smear not indicated at this time. Domestic violence screening negative. patient does not need mammogram at this time. Problem List Items Addressed This Visit PMDD (premenstrual dysphoric disorder) Overview Many years of significant mood dysregulation surrounding menstrual cycle that is starting to dramatically affect personal life. She has not tolerated OCPs well in the past. Current Assessment & Plan - Chronic problem, unresolved, new to this provider, requires further workup and treatment - Discussed with pt that options included OCPs versus LARC versus different SSRI treatment. Will treat with citalopram 10 mg for 2 weeks then increase to 20 mg. With close follow-up. Additionally recommended counseling and supportive lifestyle changes. Relevant Medications citalopram (CeleXA) 20 mg tablet Other Relevant Orders Follicle Stimulating Hormone TSH with reflex to Free T4 if abnormal Other Visit Diagnoses Encounter for gynecological examination with abnormal finding - Primary Patient Instructions PMDD: START citalopram 10mg for 2 weeks then increase to 20mg daily Follow up with Dr. Wynn in 6 weeks. Follow up: 6 weeks regarding mood Return precautions discussed. An After Visit Summary was given to the patient. All questions were answered and patient in agreement with plan. Subjective: Basilia Coronado is a 38 y.o. female who presents to clinic today for Gynecologic Exam (Annual exam - last pap Mar 2021) HPI: Gynecologic History: (Please complete obstetric history in the history tab) - Do you have any menstrual concerns? Yes she has felt for years like she has PMDD, se notes that on day 12 until she gets her cycle she feels unwell and is exhausted, she notes mood swings and then feels better when she starts her cycle. Its been causing her to feel rage. She did have an ablation a few years back due to irregular heavy periods and now she will get a day of bleeding she's been on OCPs before, she's also concerned about an IUD - Do you have any breast concerns? no - Date of last pap smear: 03/2021 - Results of last pap smear, if known: normal/cotest - Personal history of prior abnormal pap smear?: no - Date of last mammogram: 05/2022 - Results of last mammogram: normal, BIRADS 1 - Personal history of prior abnormal mammogram: no Sexual history (provider to ask): - Have you been sexually active within the past year? yes - What are the genders of your sexual partner(s)? male - Are you or your spouse/partner wanting to become or have children in the next year? no - If no, are you currently using any method to prevent :? vasectomy - Do you have any questions or concerns about contraceptive access? 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 yes - Do you want comprehensive STI testing today? no Domestic Violence Screening (Provider to ask): Because violence is so common in many people's lives and because there is help available for those being abused, I now ask every patient about domestic violence: - Within the past year have you been hit, slapped, kicked or otherwise physically hurt by someone? no - Are you in a relationship with a person who threatens or physically hurts you? no - Has anyone forced you to have sexual activities that made you feel uncomfortable? no Review of Systems Objective: BP 116/72 (BP Location: Left arm, Patient Position: Sitting) Ht 1.676 m (5' 6) Wt 74.7 kg (164 lb 9.6 oz) BMI 26.57 kg/m Physical Exam Vitals and nursing note reviewed. Exam conducted with a personal lines agent present. Constitutional: General: She is not in acute distress. Appearance: Normal appearance. HENT: Head: Normocephalic and atraumatic. Mouth/Throat: Mouth: Mucous membranes are moist. Eyes: General: No scleral icterus. Right eye: No discharge. Left eye: No discharge. Extraocular Movements: Extraocular movements intact. Conjunctiva/sclera: Conjunctivae normal. Cardiovascular: Rate and Rhythm: Normal rate and regular rhythm. Pulmonary: Effort: Pulmonary effort is normal. No respiratory distress. Breath sounds: Normal breath sounds. No wheezing. Chest: Chest wall: No mass. Breasts: Rafael Score is 5. Breasts are symmetrical. Right: Normal. Left: Normal. Abdominal: General: Abdomen is flat. There is no distension. Palpations: Abdomen is soft. Genitourinary: General: Normal vulva. Exam position: Supine. Pubic Area: No rash or pubic lice. Rafael stage (genital): 5. Vagina: Normal. Cervix: Normal. Uterus: Normal. Adnexa: Right adnexa normal and left adnexa normal. Lymphadenopathy: Upper Body: Right upper body: No supraclavicular, axillary or pectoral adenopathy. Left upper body: No supraclavicular, axillary or pectoral adenopathy. Skin: General: Skin is warm and dry. Neurological: General: No focal deficit present. Mental Status: She is alert and oriented to person, place, and time. Psychiatric: Attention and Perception: Attention normal. Mood and Affect: Mood normal. Speech: Speech normal. Behavior: Behavior normal. Cognition and Memory: Cognition and memory normal. Judgment: Judgment normal. I spent 24 minutes in total time for this visit including all related clinical activities before, during, and after the visit excluding other billable activities/procedure time. Juan Wynn MD documented in this encounter [facility] Work Phone: 10-18-2023 Instructions Juan Wynn MD - 10/18/2023 9:40 AM EDT PMDD: START citalopram 10mg for 2 weeks then increase to 20mg daily Follow up with Dr. Wynn in 6 weeks. documented in this encounter [facility] Work Phone: 09-12-2022 History of Present illness Narrative Subjective Patient ID: Basilia Coronado is a 37 y.o. female who presents for Depression (6 month). Depression Patient complains of depression. She complains of having attention. Symptoms have been controlled since that time. Current symptoms include: attention impairment . Patient denies depressed mood, difficulty concentrating, hopelessness, impaired memory, weight gain, and weight loss. Family history significant for no psychiatric illness. Possible organic causes contributing are: none. Risk factors: none. Previous treatment includes medication. She complains of the following side effects from the treatment: none. Denies any acute health concerns Sleeping well Review of Systems Constitutional: Negative for activity change, fatigue and fever. Respiratory: Negative for shortness of breath. Cardiovascular: Negative for chest pain. Gastrointestinal: Negative for diarrhea, nausea and vomiting. Musculoskeletal: Negative for arthralgias and myalgias. Skin: Negative. Neurological: Negative for dizziness, light-headedness and headaches. Psychiatric/Behavioral: Negative for decreased concentration and sleep disturbance. The patient is not nervous/anxious. Objective BP 114/70 (Patient Position: Sitting) Pulse 62 Ht 1.676 m (5' 6) Wt 79.9 kg (176 lb 3.2 oz) BMI 28.44 kg/m Physical Exam Constitutional: General: She is not in acute distress. Appearance: Normal appearance. She is normal weight. Cardiovascular: Rate and Rhythm: Normal rate and regular rhythm. Pulmonary: Effort: Pulmonary effort is normal. Breath sounds: Normal breath sounds. Abdominal: General: Bowel sounds are normal. Palpations: Abdomen is soft. Skin: General: Skin is warm and dry. Neurological: Mental Status: She is alert and oriented to person, place, and time. Psychiatric: Mood and Affect: Mood normal. Behavior: Behavior normal. Thought Content: Thought content normal. Assessment/Plan Diagnoses and all orders for this visit: Vitamin D insufficiency - Vitamin D 25-Hydroxy,Total; Future Depression, major, single episode, moderate (CMS/HCC) -Chronic, controlled on current treatment Other orders - Follow Up In Primary Care - Health Maintenance; Future documented in this encounter [facility] Work Phone: 03-15-2022 Chief complaint Narrative - Reported 2 month.An interactive audio and video telecommunication system which permits real time communications between the patient (at the originating site) and provider (at the distant site) was utilized to provide this telehealth service.Verbal consent was requested and obtained from BASILIA CORONADO on this date, 03/15/2022 08:15 AM , for a telehealth visit. 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 [facility] Work Phone: 09-09-2021 Note Post Operative Note: PreOp Diagnosis: Abnormal uterine bleeding Post-Procedure Diagnosis: Normal uterine bleeding Procedure: 1. Hysteroscopy D&C 2. Endometrial ablation 3. 4. 5. Surgeon: Dr. July Nix Resident/Fellow/Other Motor Driver: none Anesthesia: LMA Estimated Blood Loss (mL): 5 Specimen: yes. Endometrial curettings Complications: None apparent Findings: See dication. Hysteroscopic deficit 50 mL Operative Report Dictated: Dictation: not applicable - note contains Operative Report Operative Report: 36-year-old presented my office for abnormal uterine bleeding. Patient previously was managed on combined oral contraceptive pills but did not tolerate them well. Patient was interested in surgical management. Counseled on hysteroscopy D&C endometrial ablation. Risk benefits alternatives discussed. Consent was obtained. Procedure: Pt was taken to the operating room. Time out was performed. General anesthesia was found to be adequate. Pt placed in dorsal supine position with legs in bilateral yellowfin stirrups Pt prepped and draped in a sterile fashion. Weighted speculum was placed in posterior vagina. Allis clamp was used to grasp the anterior lip of the cervix. Uterus was sounded to 8.5cm. The cervix was serial dilated and the 5mm hysteroscope was inserted. Endometrium finding of bilateral patent ostia. Hysteroscope was removed. Measuring uterine length of 4.0. Sharp curettage was performed returning minimal amount of tissue. All specimens were sent to pathology. NovaSure device was then inserted. Cavity width of 3 cm was then calibrated into the machine. Cavity assessment was applied in past. Device was then applied for 73 seconds. Hemostasis was achieved. All instruments were removed. Sponge lap and needle count was correct X2. Debrief was performed. Pt transferred to PACU in stable condition. Pt tolerated the procedure well. Electronic Signatures: July Nix) (Signed 09-Sep-2021 11:10) Authored: Post Operative Note, Note Completion Last Updated: 09-Sep-2021 11:10 by July Nix) [facility] 09-09-2021 Note History & Physical R eviewed: /Lactating: Are You no Are You Currently Breastfeedingno I have reviewed the History and Physical dated: 17-Aug-2021 History and Physical reviewed and relevant findings noted. Patient examined to review pertinent physical findings.: No significant changes Home Medications Reviewed: no changes noted Allergies Reviewed: no changes noted ERAS (Enhanced Recovery After Surgery): ERAS Patient: no Consent: COVID-19 Consent: COVID-19 Risk ConsentSurgeon has reviewed mena risks related to the risk of timur COVID-19 and if they contract COVID-19 what the risks are. Electronic Signatures: July Nix) (Signed 09-Sep-2021 10:17) Authored: History & Physical Reviewed, ERAS, Consent, Note Completion Last Updated: 09-Sep-2021 10:17 by July Nix () 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 Denies a history of abnormal Pap smears. Patient had an endometrial ablation up about 9 months ago. Initially she says she bled for a prolonged period of time but now only has a little bit of spotting but it can last from 5 to 7 days. She reports that the bleeding is significantly better than it had been prior to the ablation. Patient reports her has had a vasectomy. Patient reports that she has been experiencing left lateral breast pain that comes and will last for several days this has been going on for a couple of months. She has not palpated any breast lumps. Patient reports she stopped breast-feeding over a year ago. Patient has no additional concerns [address] Work Phone: 06-28-2021 Chief complaint Narrative - Reported 3 month.An interactive audio and video telecommunication system which permits real time communications between the patient (at the originating site) and provider (at the distant site) was utilized to provide this telehealth service.Verbal consent was requested and obtained from BASILIA CORONADO on this date, 06/28/2021 03:00 PM , for a telehealth visit. [facility] Work Phone: 04-26-2021 Chief complaint Narrative - Reported 2 week follow-up.An interactive audio and video telecommunication system which permits real time communications between the patient (at the originating site) and provider (at the distant site) was utilized to provide this telehealth service.Verbal consent was requested and obtained from BASILIA CORONADO on this date, 04/26/2021 03:00 PM , for a telehealth visit. [facility] Work Phone: 04-26-2021 Chief complaint Narrative - Reported 2 week follow-up.An interactive audio and video telecommunication system which permits real time communications between the patient (at the originating site) and provider (at the distant site) was utilized to provide this telehealth service.Verbal consent was requested and obtained from BASILIA CORONADO on this date, 04/26/2021 03:00 PM , for a telehealth visit. [facility] Work Phone: 04-06-2021 History of Present illness Narrative Basilia is a 36 yo female seen today virtually fro follow up on depression. Pateint reports depression started , she was initially placed on Sertraline 25 mg by her OBGYN, she reports it worked well and after several months she stopped as she thought she had improved. She was placed back on Sertraline and the dose was increased to 50 mg in 04/2021. Patient reports no symptoms of depression, she states she is doing well on higher dose. [facility] Work Phone: 02-22-2021 Chief complaint Narrative - Reported An interactive audio and video telecommunication system which permits real time communications between the patient (at the originating site) and provider (at the distant site) was utilized to provide this telehealth service.Verbal consent was requested and obtained from BASILIA CORONADO on this date, 02/22/2021 09:15 AM , for a telehealth visit.Patient s/Guardian s identity confirmed by valid photo [email or web address] -[facility] Work Phone: 01-12-2021 History of Present illness Narrative 36-year-old presents to discuss control. Patient notes over the last 2 cycles she notes she got extremely angry. Patient was her cephalic finally faded out of the last few months. Patient is going up on her Zoloft per her PCP but thinks that around her cycles exacerbated would like to discuss control to help. Patient is no other acute concerns [facility] Work Phone: 12-15-2020 History of Present illness Narrative 35 y.o. female presents for CPX.She reports left knee tenderness after slipping one month ago and twisting her knee that was injured as a child.Sleep: 2 hours of undisturbed sleep d/t .Diet: Moderately healthyExercise: 3-5 days/week -[facility] Work Phone: 05-16-2019 History of Present illness Narrative 36 YOF presents via VV as a 2 week FU following an increase in sertraline.Depression- Increase in sertraline is managing depression well.Patient reports a recurrent wart on right middle finger. Onset 2 years ago. She has tried home remedies such as freezing it off and various creams and gels. She is requesting a dermatology referral. [facility] Work Phone: 04-26-2019 History of Present illness Narrative 36 YOF presents via VV as a 2 week FU following an increase in sertraline.Depression- Increase in sertraline is managing depression well.Patient reports a recurrent wart on right middle finger. Onset 2 years ago. She has tried home remedies such as freezing it off and various creams and gels. She is requesting a dermatology referral. [facility] Work Phone: Evaluation note Diagnosis Vitamin D insufficiency- Primary Depression, major, single episode, moderate (CMS/HCC) documented in this encounter [facility] Work Phone: Evaluation note* Diagnosis Encounter for gynecological examination with abnormal finding- Primary PMDD (premenstrual dysphoric disorder) Premenstrual tension syndromes documented in this encounter [facility] Work Phone: Evaluation note* Diagnosis Encounter for gynecological examination with abnormal finding- Primary PMDD (premenstrual dysphoric disorder) Premenstrual tension syndromes Vitamin D insufficiency- Primary Elevated blood sugar Other abnormal glucose Fatigue, unspecified type Screening cholesterol level Screening for lipoid disorders Low iron Unspecified iron deficiency anemia PMDD (premenstrual dysphoric disorder) Premenstrual tension syndromes documented in this encounter [facility] Work Phone: Evaluation note* Diagnosis Encounter for gynecological examination with abnormal finding- Primary PMDD (premenstrual dysphoric disorder) Premenstrual tension syndromes Dysuria- Primary documented in this encounter [facility] Work Phone: Evaluation note* Diagnosis Encounter for gynecological examination with abnormal finding- Primary PMDD (premenstrual dysphoric disorder) Premenstrual tension syndromes PMDD (premenstrual dysphoric disorder)- Primary Premenstrual tension syndromes History of clenching of mandible documented in this encounter [facility] Work Phone: Evaluation note* Diagnosis Encounter for gynecological examination with abnormal finding- Primary PMDD (premenstrual dysphoric disorder) Premenstrual tension syndromes Mastodynia of left breast- Primary Entrapment of left ulnar nerve documented in this encounter [facility] Work Phone: Evaluation note* Diagnosis Encounter for gynecological examination with abnormal finding- Primary PMDD (premenstrual dysphoric disorder) Premenstrual tension syndromes Mastodynia of left breast documented in this encounter [facility] Work Phone: Evaluation note* Diagnosis Encounter for gynecological examination with abnormal finding- Primary PMDD (premenstrual dysphoric disorder) Premenstrual tension syndromes Mastodynia of left breast documented in this encounter [facility] Work Phone: Evaluation note* Diagnosis Encounter for gynecological examination with abnormal finding- Primary PMDD (premenstrual dysphoric disorder) Premenstrual tension syndromes Mastodynia of left breast documented in this encounter [facility] Work Phone: Evaluation note* Diagnosis Encounter for gynecological examination with abnormal finding- Primary PMDD (premenstrual dysphoric disorder) Premenstrual tension syndromes Irregular periods- Primary Mastodynia of left breast documented in this encounter [facility] Work Phone: Evaluation note* Diagnosis Encounter for gynecological examination with abnormal finding- Primary PMDD (premenstrual dysphoric disorder) Premenstrual tension syndromes Pityriasis rosea- Primary documented in this encounter [facility] Work Phone: Evaluation note* Diagnosis Encounter for gynecological examination with abnormal finding- Primary PMDD (premenstrual dysphoric disorder) Premenstrual tension syndromes Muscle strain of gluteal region, right, initial encounter- Primary documented in this encounter [facility] Work Phone: Evaluation note* Diagnosis Encounter for gynecological examination with abnormal finding- Primary PMDD (premenstrual dysphoric disorder) Premenstrual tension syndromes Acute right-sided low back pain with right-sided sciatica- Primary Pars defect with spondylolisthesis documented in this encounter [facility] Work Phone: Evaluation note* Diagnosis Encounter for gynecological examination with abnormal finding- Primary PMDD (premenstrual dysphoric disorder) Premenstrual tension syndromes Anterolisthesis of lumbosacral spine- Primary Muscle strain of gluteal region, right, initial encounter documented in this encounter [facility] Work Phone: History of Present illness NarrativeThis is a 36-year-old female presenting to the [facility] urgent care with complaints of initial Covidsymptoms and now worsening sinus symptoms. Patient states her symptoms have been present for over 2weeks. Patient states she has worsening nasal congestion and facial pressure with ear pain. Patientdenies any fevers or chills. Patient states she is also breast-feeding. Patient states due to the ex posure she is being seen virtually. Patient denies any fevers, chills, sore throat, chest pain, palpitations, shortness of breath, abdominal pain, nausea, vomiting, diarrhea, numbness, tingling, headache, dizziness.-[facility] Work Phone: History of Present illness [id number] YOF presents via VV requesting increase in sertraline.-[facility] Work Phone: History of Present illness [id number] presents to discuss control. Patient is doing well with her mental health and sermorelin is related to her PMDD. Patient notes in stopping her control her cycles just been almost lasting 2 weeks of spotting. Patient would like to discuss options. Patient doing better on her mental health. Patient is no other acute concernsWinova loudoun hospitalPayParrotMayesPayStand Work Phone: History of Present illness [id number] presents for follow-up and abnormal uterine bleeding. Patient would like to discuss options thinking potentially ablation. Patient was mental health is a big thing for her right now. Patient following getting good place with her family and her significant other with management. Patient very worried about how the hormones affected her mental health and not sure she want to do at this [place].[facility] Work Phone: History of Present illness [id number] presents for endometrial biopsy. Patient is no acute concerns.[place] [address] [place] Work Phone: History of Present illness [id number] presents 2 weeks status post D&C ablation. Patient doing well. Minimal spotting at this point. No abdominal pain. No other acute concerns. Discussed questions about cycle and her PMDD.[facility] [employer] Work Phone: History of Present illness Narrative* I feel like i am doing better, no symptoms of depression, * getting more sleep has helped * 2 yo child does still occasionally wake during night but is sleeping in his own room * has had recent ear infection was treated in urgent care, she continues to have popping no pain, no drainage, no fever. [facility] Work Phone: History of Present illness Narrative* Basilia is a 36 yo female, here today to follow up on depression. * She states I feel like i am doing better, reports no symptoms of depression, * getting more sleep has helped; * 2 yo child does still occasionally wake during night but is sleeping in his own room * Acute concern: She has had recent ear infection was treated in urgent care, she continues to have popping no pain, no drainage, no fever. [facility] Work Phone: History of Present illness Narrative* Basilia is a 37 yo female, seen virtually today for follow up. She was unable to come into officedue to acute diarrhea started this am. She denies fever, however is beginning to feel nauseated. * She is home with her toddler who has also been ill. * Vitamin D level was low is now taking 2000 units daily, * She is feeling better, fatigue is improving * Depression symptoms are improved, she thinks Zoloft 50 mg is the best dose. * She would like refill. * She states she would rather not need to take medication, however she feels great on the Zoloft and will continue on it [facility] Work Phone: Reason for referral (narrative)* Consultation (Routine) - Authorized Specialty Diagnoses / Procedures Referred By Contac t Referred To Contact Primary Care Procedures Follow Up In Primary Care - Health Maintenance Franny Armendariz, PREPAROLE COUNSELING AIDE-HOME CARE LIAISON [address] [facility], [place] [address] Referral ID Status Reason Start Date Expiration Date V isits Requested Visits Authorized [id number] Authorized 09/12/2022 03/11/2023 1 1 Electronically signed by Franny Armendariz PREPAROLE COUNSELING AIDE-HOME CARE LIAISON at 09/12/2022 4:08 PM EDT [facility] Work Phone: reason for referral (narrative)* Consultation (Routine) - Authorized Specialty Diagnoses / Procedures Referred By Contac t Referred To Contact Primary Care Procedures Follow Up In Primary Care - [facility] Robi Brennan PA-C [address] [facility], [place] [address] Referral ID Status Reason Start Date Expiration Date V isits Requested Visits Authorized [id number] Authorized 11/02/2023 11/01/2024 1 1 [facility] Work Phone: reason for visit Narrative* Imaging (Routine) - Authorized Specialty Diagnoses / Procedures Referred By Contac t Referred To Contact Radiology Diagnoses Mastodynia of left breast Procedures XR chest 2 views Bobby Barahona MD [address] [place] [address] Phone: tel: fax: Referral ID Status Reason Start Date Expiration Date Visits Requested Visits Authorized [id number] Authorized Perform Procedure 03/19/2024 03/19/2025 1 1 [facility] Work Phone: reason for visit Narrative* Imaging (Routine) - Pending Review Specialty Diagnoses / Procedures Referred By Contac t Referred To Contact Radiology Diagnoses Mastodynia of left breast Procedures BI US breast limited left BI US breast limited bilateral Bobby Barahona MD [address] [place] [address] Phone: tel: fax: Referral ID Status Reason Start Date Expiration Date Visits Requested Visits Authorized [id number] Pending Review Perform Procedure 03/19/2024 03/19/2025 1 1 [facility] Work Phone: Reason for visit Narrative* Imaging (Routine) - Authorized Specialty Diagnoses / Procedures Referred By Contac t Referred To Contact Radiology Diagnoses Mastodynia of left breast Procedures BI mammo bilateral diagnostic tomosynthesis Bobby Barahona MD [address] [place] [address] Phone: tel: fax: Referral ID Status Reason Start Date Expiration Date Visits Requested Visits Authorized [id number] Authorized Perform Procedure 03/19/2024 03/19/2025 1 1 [facility] Work Phone: Summary Purpose Family History No Family History Records Found Grandparent Name Dates Details Family history of hypertensi on(V17.49, Z82.49) Status:Active Family history of malignant neoplasm(V16.9, Z80.9) Status:Active Family history of diabetes m ellitus(V18.0, Z83.3) Status:Active Mother Name Dates Details Family history of hypertensi on(V17.49, Z82.49) Status:Active Father Name Dates Details Family history of colitis(V1 8.59, Z83.79) Status:Active Brother Name Dates Details Family history of hypertensi on(V17.49, Z82.49) Status:Active Family history of type 2 frandy betes mellitus(V18.0, Z83.3) Status:Active Unknown Family Member Name Dates Details Family history of hypertensi on: Mother, Brother, Grandparent(V17.49, Z82.49) Status:Active Family history of colitis: F ather(V18.59, Z83.79) Status:Active Family history of type 2 frandy betes mellitus: Brother(V18.0, Z83.3) Status:Active Family history of malignant neoplasm: Grandparent(V16.9, Z80.9) Status:Active Family history of diabetes m ellitus: Grandparent(V18.0, Z83.3) Status:Active Unknown Family Member Name Dates Details Family history of hypertensi on: Mother, Brother, Grandparent(V17.49, Z82.49) Status:Active Family history of colitis: F ather(V18.59, Z83.79) Status:Active Family history of type 2 frandy betes mellitus: Brother(V18.0, Z83.3) Status:Active Family history of malignant neoplasm: Grandparent(V16.9, Z80.9) Status:Active Family history of diabetes m ellitus: Grandparent(V18.0, Z83.3) Status:Active Unknown Family Member Name Dates Details Family history of hypertensi on: Mother, Brother, Grandparent(V17.49, Z82.49) Status:Active Family history of colitis: F ather(V18.59, Z83.79) Status:Active Family history of type 2 frandy betes mellitus: Brother(V18.0, Z83.3) Status:Active Family history of malignant neoplasm: Grandparent(V16.9, Z80.9) Status:Active Family history of diabetes m ellitus: Grandparent(V18.0, Z83.3) Status:Active Unknown Family Member Name Dates Details Family history of hypertensi on: Mother, Brother, Grandparent(V17.49, Z82.49) Status:Active Family history of colitis: F ather(V18.59, Z83.79) Status:Active Family history of type 2 frandy betes mellitus: Brother(V18.0, Z83.3) Status:Active Family history of malignant neoplasm: Grandparent(V16.9, Z80.9) Status:Active Family history of diabetes m ellitus: Grandparent(V18.0, Z83.3) Status:Active Unknown Family Member Name Dates Details Family history of hypertensi on: Mother, Brother, Grandparent(V17.49, Z82.49) Status:Active Family history of colitis: F ather(V18.59, Z83.79) Status:Active Family history of type 2 frandy betes mellitus: Brother(V18.0, Z83.3) Status:Active Family history of malignant neoplasm: Grandparent(V16.9, Z80.9) Status:Active Family history of diabetes m ellitus: Grandparent(V18.0, Z83.3) Status:Active Unknown Family Member Name Dates Details Family history of hypertensi on: Mother, Brother, Grandparent(V17.49, Z82.49) Status:Active Family history of colitis: F ather(V18.59, Z83.79) Status:Active Family history of type 2 frandy betes mellitus: Brother(V18.0, Z83.3) Status:Active Family history of malignant neoplasm: Grandparent(V16.9, Z80.9) Status:Active Family history of diabetes m ellitus: Grandparent(V18.0, Z83.3) Status:Active Unknown Family Member Name Dates Details Family history of hypertensi on: Mother, Brother, Grandparent(V17.49, Z82.49) Status:Active Family history of colitis: F ather(V18.59, Z83.79) Status:Active Family history of type 2 frandy betes mellitus: Brother(V18.0, Z83.3) Status:Active Family history of malignant neoplasm: Grandparent(V16.9, Z80.9) Status:Active Family history of diabetes m ellitus: Grandparent(V18.0, Z83.3) Status:Active Unknown Family Member Name Dates Details Family history of hypertensi on: Mother, Brother, Grandparent(V17.49, Z82.49) Status:Active Family history of colitis: F ather(V18.59, Z83.79) Status:Active Family history of type 2 frandy betes mellitus: Brother(V18.0, Z83.3) Status:Active Family history of malignant neoplasm: Grandparent(V16.9, Z80.9) Status:Active Family history of diabetes m ellitus: Grandparent(V18.0, Z83.3) Status:Active Unknown Family Member Name Dates Details Family history of diabetes m ellitus: Grandparent(V18.0, Z83.3) Status:Active Family history of malignant neoplasm: Grandparent(V16.9, Z80.9) Status:Active Family history of type 2 frandy betes mellitus: Brother(V18.0, Z83.3) Status:Active Family history of colitis: F ather(V18.59, Z83.79) Status:Active Family history of hypertensi on: Mother, Brother, Grandparent(V17.49, Z82.49) Status:Active Unknown Family Member Name Dates Details Family history of hypertensi on: Mother, Brother, Grandparent(V17.49, Z82.49) Status:Active Family history of colitis: F ather(V18.59, Z83.79) Status:Active Family history of type 2 frandy betes mellitus: Brother(V18.0, Z83.3) Status:Active Family history of malignant neoplasm: Grandparent(V16.9, Z80.9) Status:Active Family history of diabetes m ellitus: Grandparent(V18.0, Z83.3) Status:Active Unknown Family Member Name Dates Details Family history of hypertensi on: Mother, Brother, Grandparent(V17.49, Z82.49) Status:Active Family history of colitis: F ather(V18.59, Z83.79) Status:Active Family history of type 2 frandy betes mellitus: Brother(V18.0, Z83.3) Status:Active Family history of malignant neoplasm: Grandparent(V16.9, Z80.9) Status:Active Family history of diabetes m ellitus: Grandparent(V18.0, Z83.3) Status:Active Unknown Family Member Name Dates Details Family history of hypertensi on: Mother, Brother, Grandparent(V17.49, Z82.49) Status:Active Family history of colitis: F ather(V18.59, Z83.79) Status:Active Family history of type 2 frandy betes mellitus: Brother(V18.0, Z83.3) Status:Active Family history of malignant neoplasm: Grandparent(V16.9, Z80.9) Status:Active Family history of diabetes m ellitus: Grandparent(V18.0, Z83.3) Status:Active Unknown Family Member Name Dates Details Family history of hypertensi on: Mother, Brother, Grandparent(V17.49, Z82.49) Status:Active Family history of colitis: F ather(V18.59, Z83.79) Status:Active Family history of type 2 frandy betes mellitus: Brother(V18.0, Z83.3) Status:Active Family history of malignant neoplasm: Grandparent(V16.9, Z80.9) Status:Active Family history of diabetes m ellitus: Grandparent(V18.0, Z83.3) Status:Active Unknown Family Member Name Dates Details Family history of hypertensi on: Mother, Brother, Grandparent(V17.49, Z82.49) Status:Active Family history of colitis: F ather(V18.59, Z83.79) Status:Active Family history of type 2 frandy betes mellitus: Brother(V18.0, Z83.3) Status:Active Family history of malignant neoplasm: Grandparent(V16.9, Z80.9) Status:Active Family history of diabetes m ellitus: Grandparent(V18.0, Z83.3) Status:Active Unknown Family Member Name Dates Details Family history of hypertensi on: Mother, Brother, Grandparent(V17.49, Z82.49) Status:Active Family history of colitis: F ather(V18.59, Z83.79) Status:Active Family history of type 2 frandy betes mellitus: Brother(V18.0, Z83.3) Status:Active Family history of malignant neoplasm: Grandparent(V16.9, Z80.9) Status:Active Family history of diabetes m ellitus: Grandparent(V18.0, Z83.3) Status:Active Unknown Family Member Name Dates Details Family history of hypertensi on: Mother, Brother, Grandparent(V17.49, Z82.49) Status:Active Family history of colitis: F ather(V18.59, Z83.79) Status:Active Family history of type 2 frandy betes mellitus: Brother(V18.0, Z83.3) Status:Active Family history of malignant neoplasm: Grandparent(V16.9, Z80.9) Status:Active Family history of diabetes m ellitus: Grandparent(V18.0, Z83.3) Status:Active Unknown Family Member Name Dates Details Family history of hypertensi on: Mother, Brother, Grandparent(V17.49, Z82.49) Status:Active Family history of colitis: F ather(V18.59, Z83.79) Status:Active Family history of type 2 frandy betes mellitus: Brother(V18.0, Z83.3) Status:Active Family history of malignant neoplasm: Grandparent(V16.9, Z80.9) Status:Active Family history of diabetes m ellitus: Grandparent(V18.0, Z83.3) Status:Active Unknown Family Member Name Dates Details Family history of hypertensi on: Mother, Brother, Grandparent(V17.49, Z82.49) Status:Active Family history of colitis: F ather(V18.59, Z83.79) Status:Active Family history of type 2 frandy betes mellitus: Brother(V18.0, Z83.3) Status:Active Family history of malignant neoplasm: Grandparent(V16.9, Z80.9) Status:Active Family history of diabetes m ellitus: Grandparent(V18.0, Z83.3) Status:Active Unknown Family Member Name Dates Details Family history of hypertensi on: Mother, Brother, Grandparent(V17.49, Z82.49) Status:Active Family history of colitis: F ather(V18.59, Z83.79) Status:Active Family history of type 2 frandy betes mellitus: Brother(V18.0, Z83.3) Status:Active Family history of malignant neoplasm: Grandparent(V16.9, Z80.9) Status:Active Family history of diabetes m ellitus: Grandparent(V18.0, Z83.3) Status:Active Unknown Family Member Name Dates Details Family history of hypertensi on: Mother, Brother, Grandparent(V17.49, Z82.49) Status:Active Family history of colitis: F ather(V18.59, Z83.79) Status:Active Family history of type 2 frandy betes mellitus: Brother(V18.0, Z83.3) Status:Active Family history of malignant neoplasm: Grandparent(V16.9, Z80.9) Status:Active Family history of diabetes m ellitus: Grandparent(V18.0, Z83.3) Status:Active Unknown Family Member Name Dates Details Family history of hypertensi on: Mother, Brother, Grandparent(V17.49, Z82.49) Status:Active Family history of colitis: F ather(V18.59, Z83.79) Status:Active Family history of type 2 frandy betes mellitus: Brother(V18.0, Z83.3) Status:Active Family history of malignant neoplasm: Grandparent(V16.9, Z80.9) Status:Active Family history of diabetes m ellitus: Grandparent(V18.0, Z83.3) Status:Active Unknown Family Member Name Dates Details Family history of hypertensi on: Mother, Brother, Grandparent(V17.49, Z82.49) Status:Active Family history of colitis: F ather(V18.59, Z83.79) Status:Active Family history of type 2 frandy betes mellitus: Brother(V18.0, Z83.3) Status:Active Family history of malignant neoplasm: Grandparent(V16.9, Z80.9) Status:Active Family history of diabetes m ellitus: Grandparent(V18.0, Z83.3) Status:Active Unknown Family Member Name Dates Details Family history of hypertensi on: Mother, Brother, Grandparent(V17.49, Z82.49) Status:Active Family history of colitis: F ather(V18.59, Z83.79) Status:Active Family history of type 2 frandy betes mellitus: Brother(V18.0, Z83.3) Status:Active Family history of malignant neoplasm: Grandparent(V16.9, Z80.9) Status:Active Family history of diabetes m ellitus: Grandparent(V18.0, Z83.3) Status:Active Advance Directives No Advanced Directives Records FoundNo Advanced Directives Records FoundNo Advanced Directives Records FoundNo Advanced Directives Records FoundNo Advanced Directives Records FoundNo Advanced Directives Records FoundNo Advanced Directives Records FoundNo Advanced Directives Records FoundNo Advanced Directives Records FoundNo Advanced Directives Records FoundNo Advanced Directives Records Found Chief Complaint CPX for insurance.* Wants to discuss a increase in zoloft. * An interactive audio and video telecommunication system which permits real time communications between the patient (at the originating site) and provider (at the distant site) was utilized to providethis telehealth service. * Verbal consent was requested and obtained from BASILIA CLIFF on this date, 04/12/2021 04:00 PM ,for a telehealth visit. PT IS HERE TODAY TO DISCUSS B/C. HAS NO OTHER CONCERNS. LMP: 03/31/2021T HERE TODAY WITH CONCERNS OF IRREGULAR BLEEDING. PT STATES SHE WAS ON CONTROL PILLS, BUT SHE WAS CONSTANTLY BLEEDING WITH IT. PT STATES SHE STOPPED TAKING CONTROL FOR ABOUT 7 WEEKS NOW,AND HER LAST PERIOD LASTED TWO WEEKS. PT STATES SHE DOES NOT WANT TO BE PUT BACK ON THE CONTROL. LMP 06/25/21PT HERE TODAY TO GO OVER RESULTS. PT HAS NO CONCERNS AT THIS TIME.PT IS HERE TODAY FOR AN EMB. HAS NO NEW CONCERNS. LMP: 07/22/2021T IS HERE TODAY FOR A 2 WEEK POST OP FROM AN ABLATION ON 09/09/2021. HAS NO CONCERNS.6 month.6 month.Fatigue - worse recently.* Patient is here for yearly exam. Patient does NOT DO self breast exams regularly. LMP ABLATION * PT STATES FOR THE PAST THREE MONTHS SHE HAS NOTICED A BURNING SENSATION, ON THE LEFT SIDE OF HER BREAST. PT DENIES ANY LUMPS, COLOR CHANGES TO THE SKIN, AND TEXTURE CHANGE. Reason for Referral * Superficial thrombophlebitis of right legSuperficial thrombophlebitis of right leg Additional Source Comments INFORMATION SOURCE (unrecogn ized section and content) DATE CREATED AUTHOR 08/29/2017 [facility] DATE CREATED AUTHOR AUTHOR'S ORGANIZ ATION 10/27/2018 [facility] DATE CREATED AUTHOR AUTHOR'S ORGANIZ ATION 03/20/2019 [facility] ([place]) DATE CREATED AUTHOR AUTHOR'S ORGANIZ ATION 05/13/2022 [facility] DATE CREATED AUTHOR AUTHOR'S ORGANIZ ATION 05/13/2022 [employer] DATE CREATED AUTHOR AUTHOR'S ORGANIZ ATION 05/29/2022 [facility] DATE CREATED AUTHOR AUTHOR'S ORGANIZ ATION 11/20/2023 [facility] DATE CREATED AUTHOR AUTHOR'S ORGANIZ ATION 05/05/2024 [facility] DATE CREATED AUTHOR AUTHOR'S ORGANIZ ATION 07/23/2024 [facility] DATE CREATED AUTHOR AUTHOR'S ORGANIZ ATION 07/24/2024 [facility] DATE CREATED AUTHOR AUTHOR'S ORGANIZ ATION 08/08/2024 [facility] <item><item> Privacy Markings (unrecogniz ed section and content) Section Author: Dona Lopez PROHIBITION ON REDISCLOSURE OF CONFIDENTIAL INFORMATION This notice accompanies a disclosure of information concerning a client made to you with the consent of such client. Section Author: Dona Lopez PROHIBITION ON REDISCLOSURE OF CONFIDENTIAL INFORMATION This notice accompanies a disclosure of information concerning a client made to you with the consent of such client. Reason for Visit (unrecogniz ed section and content) Reason Comments Depression 6 month Reason Comments Gynecologic Exam Annual exam - last p ap Mar 2021 Reason Comments pt here for yearly med check Pt would li ke screening blood ordered Reason Comments UTI Reason Comments Follow-up Reason Comments Breast Pain left Reason Comments Follow-up 2 WK FU Specialty Diagnoses / Procedures Referred By Mikie t Referred To Contact Primary Care Diagnoses Mastodynia of left breast Procedures Follow Up In Primary Care Bobby Barahona MD [address] [address] Phone: tel: fax: Referral ID Status Reason Start Date Expiration Date V isits Requested Visits Authorized [id number] Authorized 03/19/2024 03/19/2025 1 1 Reason Comments Gluteal Pain Rt sided gluteal henrietta n x 3 days ago after working out Reason Comments Back Pain Pt seen yesterday fo r back pain and right hip pain since Monday. Reason Comments Back Pain Back pain x 1 week Care Teams (unrecognized sec tion and content) Electrical Manager Relationship Specialty Start Date End Date CaityRayna SUSY [facility] Office Address Unavailable as of 07/11/2021 PCP - Daniella ACO PCP 11/04/21 Franny Armendariz APRN-CNP [address] [facility], [place] [place] [id number] PCP - General Family Medicine 08/29/22 Electrical Manager Relationship Specialty Start Date End Date Franny Armendariz APRN-CNP PCP - General Family Medicine 08/29/22 Franny Armendariz APRN-HOME CARE LIAISON [address], [address] [place], [place] [id number] PCP - Daniella MOTAO PCP 01/04/23 Electrical Manager Relationship Specialty Start Date End Date Franny Armendariz APRN-HOME CARE LIAISON [address], [address] [place] [address] PCP - Metolius ACO PCP 01/04/23 Robi Brennan PA-C [address] [facility], [place] [address] [place] [id number] PCP - General Family Medicine 11/02/23 Electrical Manager Relationship Specialty Start Date End Date Franny Armendariz APRN-HOME CARE LIAISON [address], [address] [place] [address] PCP - Metolius ACO PCP 01/04/23 Robi Brennan PA-C [address] [facility], [facility] [address] [place] [address] PCP - General Family Medicine 11/02/23 Electrical Manager Relationship Specialty Start Date End Date Franny Armendariz APRN-HOME CARE LIAISON [address] [place], [address] [address] PCP - Metolius ACO PCP 01/04/23 Robi Brennan PA-C [address] [facility], [facility] [address] [place] [id number] PCP - General Family Medicine 11/02/23 Electrical Manager Relationship Specialty Start Date End Date Franny Armendariz APRN-HOME CARE LIAISON [address] [place], [address] [address] PCP - Metolius ACO PCP 01/04/23 Juan Wynn MD [address] [place] [id number] PCP - General Family Medicine 03/11/24 Electrical Manager Relationship Specialty Start Date End Date Franny Armendariz APRN-HOME CARE LIAISON [address] [place], [facility] [address] [place] [address] PCP - Metolius ACO PCP 01/04/23 Juan Wynn MD [address] [place] [id number] PCP - General Family Medicine 03/11/24 Electrical Manager Relationship Specialty Start Date End Date Franny Armendariz APRN-HOME CARE LIAISON [address] [place], [address] [address] PCP - Metolius ACO PCP 01/04/23 Juan Wynn MD [address] [address] PCP - General Family Medicine 03/11/24 Electrical Manager Relationship Specialty Start Date End Date Franny Armendariz APRN-HOME CARE LIAISON [address], [address] [address] PCP - Metolius ACO PCP 01/04/23 Juan Wynn MD [address] [address] PCP - General Family Medicine 03/11/24 Electrical Manager Relationship Specialty Start Date End Date Franny Armendariz APRN-HOME CARE LIAISON [address], [address] [address] PCP - Metolius ACO PCP 01/04/23 Juan Wynn MD [address] [address] PCP - General Family Medicine 03/11/24 Electrical Manager Relationship Specialty Start Date End Date Franny Armendariz APRN-HOME CARE LIAISON [address], [address] [address] PCP - Metolius ACO PCP 01/04/23 Juan Wynn MD [address] [address] PCP - General Family Medicine 03/11/24 Electrical Manager Relationship Specialty Start Date End Date Juan Wynn MD [address] [address] PCP - General Family Medicine 03/11/24 Juan Wynn MD [address] [address] PCP - Daniella MOTAO PCP 02/04/24 Electrical Manager Relationship Specialty Start Date End Date Juan Wynn MD [address] [address] PCP - General Family Medicine 03/11/24 Juan Wynn MD [address] [address] PCP - Daniella MOTAO PCP 02/04/24 Electrical Manager Relationship Specialty Start Date End Date Juan Wynn MD [address] [address] PCP - General Family Medicine 03/11/24 Juan Wynn MD [address] [address] PCP - Daniella [facility] PCP 02/04/24 Scheduled Active and Recently Administ ered Medications (unrecognized section and content) Medication Order 06/12/2024 06/13/2024 06/14/2024 methylPREDNISolone sod succinate (SOLU-Medrol) injection 125 mg (COMPLETED) 125 mg, intramuscular, Once, On 4/11/25 at 1620, For 1 dose 1628 (Given - Provid er: Marisabel Dumont RN) orphenadrine (Norflex) injection 60 mg (COMPLETED) 60 mg, intramuscular, Once, On Mon06/14/24 at 1605, For 1 dose 1628 (Given - Provid er: Marisabel Dumont RN) FOR RECORDS PERTAINING TO PATIENTS WHO ARE OR HAVE BEEN ENROLLED IN A CHEMICAL DEPENDENCY/SUBSTANCEABUSE PROGRAM, SOME INFORMATION MAY BE OMITTED. This clinical summary was aggregated from multiple sources. Caution should be exercised in using it in the provision of clinical care. This summary normalizes information from multiple sources, and as a consequence, information in this document may materially change the coding, format and clinical context of patient data. In addition, data may be omitted in some cases. CLINICAL DECISIONS SHOULD BE BASED ON THE PRIMARY CLINICAL RECORDS. [facility]. provides no warranty or guarantee of the accuracy or completeness of information in this document.
== END | disposition home or self-care (01) ==
LOC: OPMRI 07:47
PROVIDERS: PCP Family Medicine; Referring Provider Student in an Organized Health Care Education/Training Program; Visit Provider Student in an Organized Health Care Education/Training Program
DX: M43.10 Spondylolisthesis, site unspecified (principal); M54.16 Radiculopathy, lumbar region
CPT/HCPCS: 72148